=== PATIENT | female | born 1975 | race Two or more races ===

== ENCOUNTER → 2024-10-07 | Outpatient (CLI) | payer MEDICAID, SELFPAY ==
--- NOTE | 2024-10-07 | XR_ITS ---
Examination: Lumbar spine 3 views Technique one AP lateral coned lateral lower lumbar spine 3 views Date and time: October 07, 2024 1337 hours INDICATIONS: Low back pain radiating down the left leg beginning one year ago. FINDINGS: Lumbar dextroscoliosis 10 degrees Minimal anterolisthesis L4 on L5 Advanced degenerative disc disease L5-S1 No lumbar fracture IMPRESSION: Advanced degenerative disc disease L5-S1
== END | disposition home or self-care (01) ==
LOC: CDIM 12:31
PROVIDERS: PCP Physician Assistant; Referring Provider Physician Assistant; Visit Provider Physician Assistant
DX: M51.370 Other intervertebral disc degeneration, lumbosacral region with discogenic back pain only (principal)
CPT/HCPCS: 72100

== ENCOUNTER 2024-10-17 13:49 | Inpatient (IN) | payer MEDICAID, SELFPAY ==
[2024-10-17] VITALS (86 sets, daily range): BP systolic 61–292; BP diastolic 33–275; PULSE 71–105; RESP 4–48; TEMP 36.1–36.6; O2SAT 92–100; BMI 41.1
--- NOTE | 2024-10-17 13:55 | XR_ITS ---
Examination: AP chest single view TECHNIQUE: AP supine portable chest single view Date and time: October 17, 2024 1435 hours Comparison October 17, 2024 1046 hours INDICATIONS: Syncopal episode today. Findings findings Mild prominence left ventricle. Mild vascular congestion. No aspiration pneumonia. Moderate osteopenia IMPRESSION: Mild vascular congestion No aspiration pneumonia
--- NOTE | 2024-10-17 13:55 | EKG_ITS ---
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
--- NOTE | 2024-10-17 14:05 | PD.EDADULT ---
ED General RME/HPI General Chief complaint: Syncope / Near Syncope Stated complaint: NEAR SYNCOPE Time Seen by Provider: 10/17/24 13:55 Arrival date/time: 10/17/24 13:49 CC: CC: Nausea vomiting breathing fast HPI patient presents to the ER via EMS with family members report the patient has been doing the symptoms for the past 24 hours after starting on to tirzepatide 2 days ago. Patient is morbidly obese is on diabetes medication and this was added by PCP to her regular medications. Patient denies chest pain, EMS reports stable vital signs and route other than tachypnea with no tachycardia however patient is ranging in the high 90s for heart rate. Related Data Home Medications ?Medication ?Instructions ?Recorded ?Confirmed atorvastatin 40 mg tablet 40 mg PO QDAY 10/18/24 10/18/24 celecoxib 200 mg capsule 200 mg PO BID 10/18/24 10/18/24 diphenoxylate-atropine 2.5 2 tab PO QID 10/18/24 10/18/24 mg-0.025 mg tablet (Lomotil) empagliflozin 12.5 mg-metformin ER 2 tab PO QDAY 10/18/24 10/18/24 1,000 mg tablet,extended rel 24 hr (Synjardy XR) furosemide 20 mg tablet 20 mg PO BID 10/18/24 10/18/24 lisinopril 10 mg tablet 10 mg PO QDAY 10/18/24 10/18/24 ondansetron 8 mg disintegrating 8 mg PO TID 10/18/24 10/18/24 tablet tramadol 50 mg tablet 50 mg PO BID 10/18/24 10/18/24 Previous Rx's ?Medication ?Instructions ?Recorded codeine 10 mg-guaifenesin 100 mg/5 10 ml PO Q6H PRN cough #118 mL 03/23/18 mL oral liquid Allergies Allergy/AdvReac Type Severity Reaction Status Date / Time No Known Allergies Allergy Verified 03/23/18 21:34 Review of Systems Review of Systems Narrative Review of Systems: GEN: No fever, no chills, no weight loss EYES: No discharge, no visual changes, no pain HEENT: No ear pain, no congestion, no sore throat PULM: No shortness of breath, no cough, no congestion CV: No chest pain, no dyspnea on exertion, no palpitations,+ tachypnea GI: No nausea, no vomiting, no diarrhea, no pain, no constipation : No frequency, no urgency, no dysuria MUSC/SKEL: No joint pain, no back pain SKIN: No rash PSYCH: No hallucinations, no depression HEME/LYMPH: No easy bleeding or bruising tendencies NEURO: No weakness, no headache Past Medical History Past Medical History CARDIAC: Negative Congestive Heart Failure RESPIRATORY: Negative Chronic Obstructive Pulmonary Disease (COPD) GENITOURINARY: Negative Renal Disease ENDOCRINE: Negative Diabetes Mellitus Type 1 or Diabetes Mellitus Type 2 ED Exam Narrative Physical exam: [General: Morbidly obese not in any acute distress Head normocephalic HEENT: Within acceptable limits Neck is supple nontender Chest equal chest rise nontender to palpation Respiratory: Tachypneic, clear to auscultation no wheezes crackles or rubs CV: Rate rhythm is regular no murmurs rubs or clicks Abdomen is grossly distended secondary to body habitus soft nontender no masses positive bowel sounds all 4 quadrants Back: No CVA tenderness no spinous process tenderness from cervical spine thoracic and lumbar spine Skin: Intact no petechiae rash induration ulceration or crepitus Extremities: Moving all extremity against resistance cap refill less than 2 seconds neurosensory intact Neuro: Awake alert oriented x2, person and place, Glascow coma 15 no focal deficits] Course Quality Measures none Orders Category Date Time Status Admit to Inpatient Status Routine Admission 10/17/24 15:41 Active Patient Condition Routine Admission 10/17/24 15:40 Ordered Activity as Tolerated Routine Care 10/17/24 15:42 Ordered Aspiration precautions NOW Care 10/17/24 15:43 Active Continuous Pulse Oximetry NOW Care 10/17/24 15:40 Completed EKG (ED ONLY) *Do not use* NOW Care 10/17/24 13:55 Completed Vásquez [Urinary Catheter] X1 Care 10/17/24 15:14 Completed Glucose [Bedside Blood Glucose] NOW Care 10/17/24 13:59 Active Glucose [Bedside Blood Glucose] Q3HR Care 10/17/24 14:41 Completed Insert IV NOW Care 10/17/24 14:12 Completed Insert NG / OG tube X1 Care 10/17/24 15:17 Active Intubation NOW Care 10/17/24 15:23 Completed NPO NOW Care 10/17/24 15:42 Active Notify provider NEEDED Care 10/17/24 15:40 Active Obtain weight daily Care 10/17/24 15:42 Active Saline [Insert IV] NOW Care 10/17/24 13:56 Active Strict Intake and Output Q1H Care 10/17/24 15:45 Ordered Strict Intake and Output Q1H Care 10/17/24 16:45 Ordered Strict Intake and Output Q1H Care 10/17/24 17:45 Ordered Strict Intake and Output Q1H Care 10/17/24 18:45 Ordered Strict Intake and Output Q1H Care 10/17/24 19:45 Ordered Strict Intake and Output Q1H Care 10/17/24 20:45 Ordered Strict Intake and Output Q1H Care 10/17/24 21:45 Ordered Strict Intake and Output Q1H Care 10/17/24 22:45 Ordered Strict Intake and Output Q1H Care 10/17/24 23:45 Ordered Strict Intake and Output Q1H Care 10/18/24 00:45 Ordered Strict Intake and Output Q1H Care 10/18/24 01:45 Ordered Strict Intake and Output Q1H Care 10/18/24 02:45 Ordered Strict Intake and Output Q1H Care 10/18/24 03:45 Ordered Strict Intake and Output Q1H Care 10/18/24 04:45 Ordered Strict Intake and Output Q1H Care 10/18/24 05:45 Ordered Strict Intake and Output Q1H Care 10/18/24 06:45 Ordered Strict Intake and Output Q1H Care 10/18/24 07:45 Ordered Strict Intake and Output Q1H Care 10/18/24 08:45 Ordered Strict Intake and Output Q1H Care 10/18/24 09:45 Ordered Strict Intake and Output Q1H Care 10/18/24 10:45 Ordered Strict Intake and Output Q1H Care 10/18/24 11:45 Ordered Strict Intake and Output Q1H Care 10/18/24 12:45 Ordered Strict Intake and Output Q1H Care 10/18/24 13:45 Ordered Strict Intake and Output Q1H Care 10/18/24 14:45 Ordered Diet NPO (NOW) Diet 10/17/24 15:42 Active EKG (ED Only) Stat Exams 10/17/24 13:55 Draft XR chest 1V Stat Exams 10/17/24 13:55 Completed XR chest 1V post procedure Stat Exams 10/17/24 15:17 Completed ABG [Arterial Blood Gas] Stat Lab 10/17/24 14:15 Completed ABG [Arterial Blood Gas] Stat Lab 10/17/24 15:25 Completed B-Type Natriuretic Peptide Stat Lab 10/17/24 14:05 Completed Beta Hydroxybutyrate Stat Lab 10/17/24 14:05 Completed Blood Culture (Lab) Stat Lab 10/17/24 15:05 Received CBC Stat Lab 10/17/24 14:05 Completed Comprehensive Metabolic Panel Stat Lab 10/17/24 14:05 Completed Drug Screen,Urine Stat Lab 10/17/24 14:51 Completed LDH (Lactate Dehydrogenase) Stat Lab 10/17/24 14:05 Completed Lactic Acid [Lactate (Lactic Acid)] Stat Lab 10/17/24 14:05 Completed Lipase Stat Lab 10/17/24 14:05 Completed Magnesium Stat Lab 10/17/24 14:05 Completed Partial Thromboplastin Time Stat Lab 10/17/24 14:05 Completed Procalcitonin Stat Lab 10/17/24 14:05 Completed Prothrombin Time with INR Stat Lab 10/17/24 14:05 Completed Troponin I Stat Lab 10/17/24 14:05 Completed Urinalysis Stat Lab 10/17/24 14:51 Completed ALBUTEROL RT 0.5ml [Proventil Rt 0.5ml] Med 10/17/24 14:49 Discontinued 10 mg INH X1 ONE ALBUTEROL RT 0.5ml [Proventil Rt 0.5ml] Med 10/17/24 14:41 Discontinued 2.5 mg INH X1 ONE Calcium Gluconate 10% Inj Med 10/17/24 14:41 Discontinued 1 gm IV X1 ONE Dextrose 50% Syr [D50w Syringe Abboject] Med 10/17/24 14:41 Discontinued 50 ml IV X1 ONE Etomidate Inj [Amidate Inj] Med 10/17/24 15:17 Discontinued 20 mg IVP X1 ONE Famotidine Inj [Pepcid Inj] Med 10/17/24 15:45 Discontinued 20 mg IVP QDAY Insulin Regular Med 10/17/24 14:41 Discontinued 5 unit IV X1 ONE Midazolam/Ns 100 mg Ivpb [Versed Pf Inj in Ns Premix] Med 10/17/24 15:17 Discontinued 100 mg in 100 ml IV 1 mg/hr Ondansetron Inj [Zofran Inj] Med 10/17/24 14:05 Discontinued 4 mg IVP X1 ONE Ringers Lactated 1000 ml [Lactated Ringers] 1,000 ml Med 10/17/24 15:21 Discontinued IV 250 mls/hr Ringers Lactated 1000 ml [Lactated Ringers] 1,000 ml Med 10/17/24 13:56 Discontinued IV 999 mls/hr Ringers Lactated 1000 ml [Lactated Ringers] 1,000 ml Med 10/17/24 13:56 Discontinued IV 999 mls/hr Ringers Lactated 1000 ml [Lactated Ringers] 1,000 ml Med 10/17/24 14:33 Discontinued IV 999 mls/hr Ringers Lactated 1000 ml [Lactated Ringers] 1,000 ml Med 10/17/24 15:17 Discontinued IV 999 mls/hr Ringers Lactated 1000 ml [Lactated Ringers] 1,000 ml Med 10/17/24 15:30 Discontinued IV 999 mls/hr Rocuronium Inj [Zemuron Inj] Med 10/17/24 15:17 Discontinued 10 mg IVP X1 ONE Rocuronium Inj [Zemuron Inj] Med 10/17/24 15:33 Discontinued 100 mg IV X1 ONE Sodium Bicarb 8.4% 50ml Vial* Med 10/17/24 14:48 Discontinued 50 meq IV X1 ONE Sodium Bicarb 8.4% 50ml Vial* Med 10/17/24 14:48 Discontinued 50 meq IV X1 ONE Sodium Chloride Rt Gogo 0.9% [NS Rt Gogo 0.9%] Med 10/17/24 14:41 Active 3 ml INH PRN PRN fentaNYL 2,500 MCG/250 ML BAG [Sublimaze Inj 2,500 MCG/ Med 10/17/24 15:19 Active 250 ML BAG] 2,500 mcg in 250 ml IV 25 mcg/hr Code Status Routine Oth 10/17/24 15:40 Ordered Vital Signs Vital signs: Vital Signs Temperature 97.8 F 10/17/24 14:22 Pulse Rate 97 10/17/24 14:22 Respiratory Rate 30 H 10/17/24 14:22 Blood Pressure 103/51 L 10/17/24 14:22 Pulse Oximetry (%) 96 10/17/24 14:22 Oxygen Delivery Method Room Air 10/17/24 14:22 Procedures -ED Procedure Comment Intubation.: RT at bedside patient on 8 L SVN for hyperkalemia switched over to bag valve ventilation. Dr. stein at bedside patient in full supine position. IV RSI medications administered. Patient was bagged for approximately 45 seconds, initial intubation attempt unsuccessful, repositioning short interim bag mouth ventilation, with a second attempt with new stylette patient was intubated with the vocal cords present, 24 at the lip with good color change on capnography ET tube was secured NG tube was placed. Both confirmed by chest x-ray. Ventilation parameters at rate of 24 tidal volume of 400 PEEP of 5 FiO2 of 100%. Vásquez catheter placed. Third IV peripheral line established. Postintubation blood pressures were with a MAP of 60 however were soft Levophed drip started sedation was initiated both fentanyl and Versed. Critical Care Time Critical Care Time Critical Care Time: Yes Total Critical Care Time (min.): 42 Attestation: Consultation and analysis without procedures considered. Discharge Plan Plan Patient Disposition: Admit Acute Care w/in Hospital Discharge Disposition comment: Critical Problem List Clinical Impression: DKA (diabetic ketoacidosis), Acidosis, Tachypnea, Acute hyperkalemia, Acute renal failure PA/MEDICAL CODING INSTRUCTOR Supervising Physician PA/MEDICAL CODING INSTRUCTOR Supervising Physician: Hao Hamlin ENP [facility] Clinical Information Provided by patient and EMS Medical Records Reviewed [facility] No prior visits to the emergency room Meds/Rx Considered, not Ordered None Labs/Rad/Tests considered, not Ordered None Chronic Illness/Social Conditions Add or document further as needed: Obesity diabetes patient started on tirzepatide approximately 2 days ago and is determined the patient continue to take her diabetes medicine which included metformin simultaneously. EKG EKG Interpretation narrative: EKG performed at 1418 shows a ventricular rate of 97 MS interval 184 QRS 117 QTc 412 sinus rhythm baseline waveform nonspecific ST segment changes no old EKG for comparison. Lab Interpretation Labs: interpreted by me Imaging Imaging interpretation: interpreted by [place] Provider imaging interpretation(s): CBC shows no leukocytosis anemia or thrombocytopenia Coags show a PTT of 37.2 otherwise within acceptable limits ABG shows a pH of 6.86 pCO2 23 pO2 of 96 bicarb of 4 base excess of 29 on 8 L nasal cannula CMP shows a sodium 133 potassium of 7.4 chloride of 82 CO2 of less than 10 gap of 41 BUN of 96 creatinine of 19.5 glucose of 77 Lactic of 17.0. Magnesium of 3.2 mild transaminitis no T. bili elevation LDH at 257 Troponin at 0.049 BNP at 503 Lipase at 58 Beta hydroxybutyrate of 5.3 Pro-Sunny at 0.99 Urine is turbid 3+ protein 1+ glucose 1+ blood 20 RBCs 7 squamous epithelial no bacteria. UDS is negative Magnesium at 3.2 Radiology reports / interpretation(s): After observing the patient with 3 L of normal saline, repeat ABG showed a pH is remained unchanged at 6.85 at this time the patient was elected to be intubated, see intubation note. Dr. Reeves, terminal makeup operator contacted, who agrees the patient needs ICU, will need a dialysis catheter as well. Patient was made understand before sedation and intubation what was happening and she nodded in agreement. Family member, her son, was advised of her condition, and what we would need to do. Medication Administration(s) Medication Administration History Dextrose (Dextrose 50%-Water Inj 50 Ml Syringe) 25 ml IV Q15MIN PRN PRN Reason: BG 50-70 responsive npo pt Stop: 11/16/24 18:36 Dextrose (Dextrose 50%-Water Inj 50 Ml Syringe) 50 ml IV Q15MIN PRN PRN Reason: BG <50 OR BG <70 & pt unresponsive Stop: 11/16/24 18:36 Glucagon (Glucagon Inj 1 Mg Vial) 1 mg IM Q15MIN PRN PRN Reason: BG <70, and no IV access Heparin Sodium (Porcine) (Heparin Sod Inj 5000 Unit/Ml Vial) 5,000 unit SC Q8HR [facility] Stop: 10/31/24 21:59 Last Admin: 10/18/24 05:53 Dose: 5,000 unit Documented By: BELEN Co-signed By: PINEDA Admin: 10/17/24 22:28 Dose: 5,000 unit Documented By: BELEN Co-signed By: DOROTHY Heparin Sodium (Porcine) (Heparin Sod Inj 1000 Unit/Ml Vial 10 Ml) 200 unit INDWELLCAT Q1H PRN PRN Reason: DIALYSIS Stop: 11/01/24 09:44 Last Admin: 10/18/24 12:00 Dose: 200 unit Documented By: HARRY Co-signed By: DI Admin: 10/18/24 11:00 Dose: 200 unit Documented By: HARRY Co-signed By: DI Admin: 10/18/24 10:00 Dose: 200 unit Documented By: HARRY Co-signed By: faustino Hydrocortisone Sodium Succinate (Hydrocortisone Sod Succ Inj 100 Mg Vial) 50 mg IV Q6HR [facility] Stop: 11/17/24 01:59 Last Admin: 05/26/25 05:54 Dose: 50 mg Documented By: Admin: 10/18/24 02:09 Dose: 50 mg Documented By: CMN Fentanyl Citrate (Sublimaze Inj 2,500 Mcg/250 Ml Bag) 2,500 mcg in 250 mls @ 2.5 mls/hr IV .Q24H PRN; Protocol PRN Reason: PER PROTOCOL Stop: 10/22/24 15:18 Last Titration: 10/18/24 12:00 Dose: 225 mcg/hr, 22.5 mls/hr Documented By: Titration: 10/18/24 11:30 Dose: 225 mcg/hr, 22.5 mls/hr Documented By: Titration: 10/18/24 11:00 Dose: 275 mcg/hr, 27.5 mls/hr Documented By: Admin: 10/18/24 10:28 Dose: 275 mcg/hr, 27.5 mls/hr Documented By: HARRY Co-signed By: DI Titration: 10/18/24 10:28 Dose: Infused Documented By: HARRY Co-signed By: KR Titration: 10/18/24 10:00 Dose: 275 mcg/hr, 27.5 mls/hr Documented By: Titration: 10/18/24 09:00 Dose: 275 mcg/hr, 27.5 mls/hr Documented By: Titration: 10/18/24 08:15 Dose: 275 mcg/hr, 27.5 mls/hr Documented By: Titration: 10/18/24 08:00 Dose: 225 mcg/hr, 22.5 mls/hr Documented By: Titration: 10/18/24 07:00 Dose: 225 mcg/hr, 22.5 mls/hr Documented By: Titration: 10/18/24 06:00 Dose: 225 mcg/hr, 22.5 mls/hr Documented By: Titration: 10/18/24 05:00 Dose: 175 mcg/hr, 17.5 mls/hr Documented By: Titration: 10/18/24 04:30 Dose: 175 mcg/hr, 17.5 mls/hr Documented By: Titration: 10/18/24 04:00 Dose: 175 mcg/hr, 17.5 mls/hr Documented By: Titration: 10/18/24 03:00 Dose: 175 mcg/hr, 17.5 mls/hr Documented By: Titration: 10/18/24 02:00 Dose: 125 mcg/hr, 12.5 mls/hr Documented By: Titration: 10/18/24 01:00 Dose: 125 mcg/hr, 12.5 mls/hr Documented By: Titration: 10/18/24 00:00 Dose: 125 mcg/hr, 12.5 mls/hr Documented By: Titration: 10/17/24 23:45 Dose: 125 mcg/hr, 12.5 mls/hr Documented By: Titration: 10/17/24 23:00 Dose: 75 mcg/hr, 7.5 mls/hr Documented By: Titration: 10/17/24 22:21 Dose: 75 mcg/hr, 7.5 mls/hr Documented By: Titration: 10/17/24 22:00 Dose: 25 mcg/hr, 2.5 mls/hr Documented By: Titration: 10/17/24 21:00 Dose: 25 mcg/hr, 2.5 mls/hr Documented By: Titration: 10/17/24 20:00 Dose: 25 mcg/hr, 2.5 mls/hr Documented By: Titration: 10/17/24 19:00 Dose: 25 mcg/hr, 2.5 mls/hr Documented By: Titration: 10/17/24 18:00 Dose: 25 mcg/hr, 2.5 mls/hr Documented By: Titration: 10/17/24 17:00 Dose: 25 mcg/hr, 2.5 mls/hr Documented By: Admin: 10/17/24 15:45 Dose: 25 mcg/hr, 2.5 mls/hr Documented By: DB Co-signed By: VRS Norepinephrine/Dextrose (Levophed In D5w 8mg/250ml) 8 mg in 250 mls @ 10.206 mls/hr IV .Q24H PRN; Protocol PRN Reason: PER PROTOCOL Stop: 11/16/24 15:49 Last Titration: 10/18/24 12:00 Dose: 0.07 mcg/kg/min, 14.288 mls/hr Documented By: Titration: 10/18/24 11:55 Dose: 0.07 mcg/kg/min, 14.288 mls/hr Documented By: Titration: 10/18/24 11:47 Dose: 0.09 mcg/kg/min, 18.37 mls/hr Documented By: Titration: 10/18/24 11:00 Dose: 0.11 mcg/kg/min, 22.453 mls/hr Documented By: Admin: 10/18/24 10:55 Dose: 0.11 mcg/kg/min, 22.453 mls/hr Documented By: Titration: 10/18/24 10:40 Dose: Infused Documented By: Titration: 10/18/24 10:00 Dose: 0.13 mcg/kg/min, 26.535 mls/hr Documented By: Titration: 10/18/24 09:00 Dose: 0.13 mcg/kg/min, 26.535 mls/hr Documented By: Titration: 10/18/24 08:00 Dose: 0.13 mcg/kg/min, 26.535 mls/hr Documented By: Titration: 10/18/24 07:00 Dose: 0.13 mcg/kg/min, 26.535 mls/hr Documented By: Titration: 10/18/24 06:17 Dose: 0.13 mcg/kg/min, 26.535 mls/hr Documented By: Titration: 10/18/24 06:00 Dose: 0.15 mcg/kg/min, 30.617 mls/hr Documented By: Titration: 10/18/24 05:45 Dose: 0.15 mcg/kg/min, 30.617 mls/hr Documented By: Titration: 10/18/24 05:30 Dose: 0.17 mcg/kg/min, 34.7 mls/hr Documented By: Titration: 10/18/24 05:15 Dose: 0.19 mcg/kg/min, 38.782 mls/hr Documented By: Titration: 10/18/24 05:00 Dose: 0.21 mcg/kg/min, 42.864 mls/hr Documented By: Titration: 10/18/24 04:30 Dose: 0.23 mcg/kg/min, 46.947 mls/hr Documented By: Titration: 10/18/24 04:00 Dose: 0.25 mcg/kg/min, 51.029 mls/hr Documented By: Titration: 10/18/24 03:30 Dose: 0.27 mcg/kg/min, 55.111 mls/hr Documented By: Admin: 10/18/24 03:18 Dose: 0.29 mcg/kg/min, 59.194 mls/hr Documented By: Titration: 10/18/24 03:18 Dose: Infused Documented By: Titration: 10/18/24 03:00 Dose: 0.29 mcg/kg/min, 59.194 mls/hr Documented By: Titration: 10/18/24 02:45 Dose: 0.29 mcg/kg/min, 59.194 mls/hr Documented By: Titration: 10/18/24 02:00 Dose: 0.31 mcg/kg/min, 63.276 mls/hr Documented By: Titration: 10/18/24 01:45 Dose: 0.31 mcg/kg/min, 63.276 mls/hr Documented By: Titration: 10/18/24 01:30 Dose: 0.33 mcg/kg/min, 67.358 mls/hr Documented By: Titration: 10/18/24 01:00 Dose: 0.35 mcg/kg/min, 71.441 mls/hr Documented By: Titration: 10/18/24 00:15 Dose: 0.37 mcg/kg/min, 75.523 mls/hr Documented By: Titration: 10/18/24 00:00 Dose: 0.39 mcg/kg/min, 79.605 mls/hr Documented By: Admin: 10/17/24 23:45 Dose: 0.41 mcg/kg/min, 83.688 mls/hr Documented By: Titration: 10/17/24 23:45 Dose: Infused Documented By: Titration: 10/17/24 23:00 Dose: 0.41 mcg/kg/min, 83.688 mls/hr Documented By: Titration: 10/17/24 22:30 Dose: 0.41 mcg/kg/min, 83.688 mls/hr Documented By: Titration: 10/17/24 22:00 Dose: 0.43 mcg/kg/min, 87.77 mls/hr Documented By: Titration: 10/17/24 21:00 Dose: 0.43 mcg/kg/min, 87.77 mls/hr Documented By: Admin: 10/17/24 20:38 Dose: 0.43 mcg/kg/min, 87.77 mls/hr Documented By: Titration: 10/17/24 20:38 Dose: Infused Documented By: Titration: 10/17/24 20:00 Dose: 0.43 mcg/kg/min, 87.77 mls/hr Documented By: Titration: 10/17/24 19:45 Dose: 0.43 mcg/kg/min, 87.77 mls/hr Documented By: Titration: 10/17/24 19:40 Dose: 0.41 mcg/kg/min, 83.688 mls/hr Documented By: Titration: 10/17/24 19:35 Dose: 0.39 mcg/kg/min, 79.605 mls/hr Documented By: Titration: 10/17/24 19:31 Dose: 0.37 mcg/kg/min, 75.523 mls/hr Documented By: Titration: 10/17/24 19:26 Dose: 0.35 mcg/kg/min, 71.441 mls/hr Documented By: Titration: 10/17/24 19:21 Dose: 0.33 mcg/kg/min, 67.358 mls/hr Documented By: Titration: 10/17/24 19:16 Dose: 0.31 mcg/kg/min, 63.276 mls/hr Documented By: Titration: 10/17/24 19:11 Dose: 0.29 mcg/kg/min, 59.194 mls/hr Documented By: Titration: 10/17/24 19:06 Dose: 0.27 mcg/kg/min, 55.111 mls/hr Documented By: Titration: 10/17/24 19:01 Dose: 0.25 mcg/kg/min, 51.029 mls/hr Documented By: Titration: 10/17/24 19:00 Dose: 0.23 mcg/kg/min, 46.947 mls/hr Documented By: Titration: 10/17/24 18:56 Dose: 0.23 mcg/kg/min, 46.947 mls/hr Documented By: Titration: 10/17/24 18:00 Dose: 0.21 mcg/kg/min, 42.864 mls/hr Documented By: Titration: 10/17/24 17:49 Dose: 0.21 mcg/kg/min, 42.864 mls/hr Documented By: Titration: 10/17/24 17:44 Dose: 0.19 mcg/kg/min, 38.782 mls/hr Documented By: Titration: 10/17/24 16:50 Dose: 0.17 mcg/kg/min, 34.7 mls/hr Documented By: Titration: 10/17/24 16:45 Dose: 0.17 mcg/kg/min, 34.7 mls/hr Documented By: Titration: 10/17/24 16:40 Dose: 0.15 mcg/kg/min, 30.617 mls/hr Documented By: Titration: 10/17/24 16:35 Dose: 0.15 mcg/kg/min, 30.617 mls/hr Documented By: Titration: 10/17/24 16:30 Dose: 0.15 mcg/kg/min, 30.617 mls/hr Documented By: Titration: 10/17/24 16:20 Dose: 0.13 mcg/kg/min, 26.535 mls/hr Documented By: Titration: 10/17/24 16:15 Dose: 0.11 mcg/kg/min, 22.453 mls/hr Documented By: Titration: 10/17/24 16:10 Dose: 0.09 mcg/kg/min, 18.37 mls/hr Documented By: Titration: 10/17/24 16:05 Dose: 0.07 mcg/kg/min, 14.288 mls/hr Documented By: Admin: 10/17/24 16:00 Dose: 0.05 mcg/kg/min, 10.206 mls/hr Documented By: DB Comments: PER DR. RILEY START NOW THIS MED Piperacillin/Tazobactam/Dextrose (Zosyn) 3.375 gm in 50 mls @ 12.5 mls/hr IV Q12HR [facility]; Protocol Stop: 10/25/24 08:59 Last Admin: 10/18/24 09:32 Dose: 12.5 mls/hr Documented By: HARRY Dextrose (D10w 1000 Ml) 1,000 mls @ 50 mls/hr IV .Q20H [facility] Stop: 11/16/24 18:35 Last Infusion: 10/18/24 01:26 Dose: 0 mls/hr Documented By: Admin: 10/17/24 18:50 Dose: 50 mls/hr Documented By: BILL Dexmedetomidine/Sodium Chloride (Precedex Ivpb) 400 mcg in 100 mls @ 5.443 mls/hr IV .[id number] PRN; Protocol PRN Reason: Per PROTOCOL Stop: 11/16/24 19:59 Last Titration: 10/18/24 12:00 Dose: 0.8 mcg/kg/hr, 21.772 mls/hr Documented By: Titration: 10/18/24 11:45 Dose: 0.8 mcg/kg/hr, 21.772 mls/hr Documented By: Titration: 10/18/24 11:00 Dose: 0.6 mcg/kg/hr, 16.329 mls/hr Documented By: Titration: 10/18/24 10:00 Dose: 0.6 mcg/kg/hr, 16.329 mls/hr Documented By: Titration: 10/18/24 09:30 Dose: 0.6 mcg/kg/hr, 16.329 mls/hr Documented By: Titration: 10/18/24 09:00 Dose: 0.4 mcg/kg/hr, 10.886 mls/hr Documented By: Titration: 10/18/24 08:15 Dose: 0.4 mcg/kg/hr, 10.886 mls/hr Documented By: Titration: 10/18/24 08:00 Dose: 0.2 mcg/kg/hr, 5.443 mls/hr Documented By: Titration: 10/18/24 07:00 Dose: 0.2 mcg/kg/hr, 5.443 mls/hr Documented By: Admin: 10/18/24 06:17 Dose: 0.2 mcg/kg/hr, 5.443 mls/hr Documented By: BELEN Co-signed By: DOROTHY Vasopressin/Sodium Chloride (Vasostrict/Ns Ivpb) 20 unit in 100 mls @ 9 mls/hr IV .Q11H7M PRN; Protocol PRN Reason: PER PROTOCOL Stop: 11/16/24 20:39 Last Admin: 10/18/24 06:00 Dose: 0.03 unit/min, 9 mls/hr Documented By: Titration: 10/18/24 06:00 Dose: Infused Documented By: Admin: 10/17/24 20:36 Dose: 0.03 unit/min, 9 mls/hr Documented By: BELEN Potassium Chloride (Kcl Ivpb) 10 meq in 100 mls @ 100 mls/hr IV .Q1H PRN PRN Reason: IF POTASSIUM LESS THAN 3.3 Stop: 11/17/24 06:45 Magnesium Sulfate (Magnesium Sulfate Ivpb) 2 gm in 50 mls @ 25 mls/hr IV .Q2H PRN PRN Reason: PER DKA PROTOCOL Stop: 11/17/24 06:45 Insulin Human Regular 100 unit (/ IV Miscellaneous Supplies) 100 mls @ 10.886 mls/hr IV .Q9H12M PRN; Protocol PRN Reason: PER PROTOCOL Stop: 11/17/24 06:45 Last Titration: 10/18/24 12:00 Dose: 0.025 unit/kg/hr, 2.722 mls/hr Documented By: HARRY Co-signed By: DI Titration: 10/18/24 11:00 Dose: 0.025 unit/kg/hr, 2.722 mls/hr Documented By: HARRY Co-signed By: DI Titration: 10/18/24 10:00 Dose: 0.025 unit/kg/hr, 2.722 mls/hr Documented By: HARRY Co-signed By: [email or web address] Titration: 10/18/24 09:00 Dose: 0.025 unit/kg/hr, 2.722 mls/hr Documented By: HARRY Co-signed By: DI Titration: 10/18/24 08:00 Dose: 0.1 unit/kg/hr, 10.886 mls/hr Documented By: HARRY Co-signed By: DI Admin: 10/18/24 07:52 Dose: 0.1 unit/kg/hr, 10.886 mls/hr Documented By: HARRY Co-signed By: DI Dextrose/Lactated Ringer's (D5-Lr) 1,000 mls @ 250 mls/hr IV .Q4H PRN PRN Reason: PER PROTOCOL Stop: 11/17/24 06:45 Last Infusion: 10/18/24 10:47 Dose: 0 mls/hr Documented By: Admin: 10/18/24 10:25 Dose: 250 mls/hr Documented By: HARRY Lactated Ringer's (Lactated Ringers) 1,000 mls @ 250 mls/hr IV .Q4H PRN PRN Reason: PER PROTOCOL Stop: 10/19/24 06:45 Potassium Chloride 20 meq/ (Lactated Ringer's) 1,010 mls @ 250 mls/hr IV .Q4H3M PRN PRN Reason: K LEVEL 3.3 TO 5.3mM/L Stop: 11/17/24 06:45 Potassium Chloride 40 meq/ (Lactated Ringer's) 1,020 mls @ 250 mls/hr IV .Q4H5M PRN PRN Reason: K LEVEL < 3.3 mM/L Stop: 11/17/24 06:45 Potassium Chloride 40 meq/ (Dextrose/Lactated Ringer's) 1,020 mls @ 250 mls/hr IV .Q4H5M PRN PRN Reason: K LEVEL < 3.3mM/L Stop: 11/17/24 06:45 Potassium Chloride (Kcl Ivpb) 10 meq in 100 mls @ 50 mls/hr IV PRN PRN PRN Reason: K LEVEL 3.3 to 5.3 & BG > 200 Stop: 11/17/24 06:45 Potassium Phosphate (Pot Phos 15 Mmol In Ns 250 Ml) 15 mmol in 250 mls @ 62.5 mls/hr IV PRN PRN PRN Reason: Phosphate <= 1mg/dL Stop: 11/17/24 06:45 Sodium Phosphate 15 mmol/ (Sodium Chloride) 255 mls @ 62.5 mls/hr IV .Q4H5M PRN PRN Reason: Phosphate <= 1mg/dL and K> than 5.3 Stop: 11/17/24 06:45 Potassium Chloride 20 meq/ (Dextrose/Lactated Ringer's) 1,010 mls @ 250 mls/hr IV .Q4H3M PRN PRN Reason: K LEVEL 3.3 TO 5.3 mM/L Stop: 11/17/24 10:17 Last Admin: 10/18/24 10:47 Dose: 250 mls/hr Documented By: HARRY Pantoprazole Sodium (Pantoprazole Inj 40 Mg Vial) 40 mg IVP BID SOHA Stop: 11/16/24 19:59 Last Admin: 10/18/24 09:32 Dose: 40 mg Documented By: Admin: 10/17/24 20:41 Dose: 40 mg Documented By: RH Sodium Bicarbonate (Sodium Bicarb Inj 8.4% Syr 50 Ml Syringe) 50 ml IV PRN PRN PRN Reason: For ph <= to 7.0 Stop: 11/17/24 06:45 Sodium Chloride (Sodium Chloride Rt Gogo 0.9% 3 Ml Nebu) 3 ml INH PRN PRN PRN Reason: SOLN Stop: 11/16/24 14:40 Last Admin: 10/17/24 15:05 Dose: 3 ml Documented By: CS Discontinued Medications Albuterol (Albuterol Rt 2.5 Mg/0.5 Ml Nebu) 2.5 mg INH X1 ONE Stop: 10/17/24 14:42 Last Admin: 10/17/24 15:03 Dose: Not Given Documented By: DB Non-Admin Reason: Cancelled by Provider Albuterol (Albuterol Rt 2.5 Mg/0.5 Ml Nebu) 10 mg INH X1 ONE Stop: 10/17/24 14:50 Last Admin: 10/17/24 15:00 Dose: 10 mg Documented By: ALBA Calcium Gluconate (Calcium Gluconate 10% Inj 1 Gm/10 Ml Vial) 1 gm IV X1 ONE Stop: 10/17/24 14:42 Last Admin: 10/17/24 15:05 Dose: 1 gm Documented By: TYLER Dextrose (Dextrose 50%-Water Inj 50 Ml Syringe) 50 ml IV X1 ONE Stop: 10/17/24 14:42 Last Admin: 10/17/24 15:05 Dose: 50 ml Documented By: TYLER Enoxaparin Sodium (Enoxaparin Sod Inj 40 Mg/0.4 Ml Syringe) 40 mg SC QDAY SOHA Stop: 10/31/24 15:44 Last Admin: 10/17/24 20:09 Dose: Not Given Documented By: RH Non-Admin Reason: Discontinued Etomidate (Etomidate Inj 2 Mg/Ml Vial 10 Ml) 20 mg IVP X1 ONE Stop: 10/17/24 15:18 Last Admin: 10/17/24 15:37 Dose: 20 mg Documented By: TYLER Famotidine (Famotidine Inj 10 Mg/Ml Vial 2 Ml) 20 mg IVP QDAY SOHA Stop: 11/16/24 15:44 Last Admin: 10/17/24 20:11 Dose: Not Given Documented By: BELEN Non-Admin Reason: Discontinued Heparin Sodium (Porcine) (Heparin Sod Inj 1000 Unit/Ml Vial 10 Ml) 1,000 unit INDWELLCAT X1 ONE Stop: 10/18/24 09:35 Last Admin: 10/18/24 09:41 Dose: 1,000 unit Documented By: HARRY Co-signed By: DI Hydrocortisone Sodium Succinate (Hydrocortisone Sod Succ Inj 100 Mg Vial) 100 mg IV X1 ONE Stop: 10/17/24 20:29 Last Admin: 10/17/24 20:41 Dose: 100 mg Documented By: BELEN Lactated Ringer's (Lactated Ringers) 1,000 mls @ 999 mls/hr IV .Q1H1M ONE Stop: 10/17/24 14:56 Last Infusion: 10/17/24 15:31 Dose: Infused Documented By: Admin: 10/17/24 14:16 Dose: 999 mls/hr Documented By: TYLER Lactated Ringer's (Lactated Ringers) 1,000 mls @ 999 mls/hr IV .Q1H1M ONE Stop: 10/17/24 14:56 Last Infusion: 10/17/24 15:31 Dose: Infused Documented By: Admin: 10/17/24 14:16 Dose: 999 mls/hr Documented By: TYLER Lactated Ringer's (Lactated Ringers) 1,000 mls @ 999 mls/hr IV .Q1H1M ONE Stop: 10/17/24 15:33 Last Infusion: 10/17/24 16:18 Dose: Infused Documented By: Admin: 10/17/24 14:39 Dose: 999 mls/hr Documented By: TYLER Lactated Ringer's (Lactated Ringers) 1,000 mls @ 999 mls/hr IV .Q1H1M ONE Stop: 10/17/24 16:17 Last Infusion: 10/17/24 16:58 Dose: Infused Documented By: Admin: 10/17/24 15:32 Dose: 999 mls/hr Documented By: TYLER Midazolam HCl (Versed Pf Inj In Ns Premix) 100 mg in 100 mls @ 1 mls/hr IV .Q24H PRN; Protocol PRN Reason: PER PROTOCOL Stop: 10/22/24 15:16 Last Titration: 10/17/24 22:00 Dose: 0 mg/hr, 0 mls/hr Documented By: Titration: 10/17/24 21:00 Dose: 1 mg/hr, 1 mls/hr Documented By: Titration: 10/17/24 20:00 Dose: 1 mg/hr, 1 mls/hr Documented By: Titration: 10/17/24 19:00 Dose: 1 mg/hr, 1 mls/hr Documented By: Titration: 10/17/24 18:00 Dose: 1 mg/hr, 1 mls/hr Documented By: Titration: 10/17/24 17:25 Dose: 1 mg/hr, 1 mls/hr Documented By: Admin: 10/17/24 16:10 Dose: 1 mg/hr, 1 mls/hr Documented By: TYLER Co-signed By: MELECIO Lactated Ringer's (Lactated Ringers) 1,000 mls @ 250 mls/hr IV .Q4H ONE Stop: 10/17/24 19:20 Last Admin: 10/17/24 20:07 Dose: Not Given Documented By: RH Non-Admin Reason: Discontinued Lactated Ringer's (Lactated Ringers) 1,000 mls @ 999 mls/hr IV .Q1H1M ONE Stop: 10/17/24 16:30 Last Admin: 10/17/24 15:36 Dose: Not Given Documented By: TYLER Non-Admin Reason: Duplicate Medication on eMAR Sodium Bicarbonate 88.23 meq/ (Dextrose) 588.23 mls @ 100 mls/hr IV .Q5H53M [facility] Stop: 11/16/24 15:44 Last Admin: 10/18/24 05:13 Dose: 100 mls/hr Documented By: Infusion: 10/18/24 05:13 Dose: Infused Documented By: Admin: 10/17/24 22:21 Dose: 100 mls/hr Documented By: Infusion: 10/17/24 22:21 Dose: Infused Documented By: Admin: 10/17/24 16:08 Dose: 100 mls/hr Documented By: TYLER Norepinephrine Bitartrate (Levophed In Ns 16mg/250ml) 16 mg in 250 mls @ 5.103 mls/hr IV .Q24H PRN; Protocol PRN Reason: PER PROTOCOL Stop: 11/16/24 15:48 Piperacillin/Tazobactam/Dextrose (Zosyn) 3.375 gm in 50 mls @ 100 mls/hr IV X1 ONE Stop: 10/17/24 18:44 Last Infusion: 10/17/24 20:00 Dose: Infused Documented By: Admin: 10/17/24 19:23 Dose: 100 mls/hr Documented By: Vasopressin/Sodium Chloride (Vasostrict/Ns Ivpb) 20 unit in 100 mls @ 9 mls/hr IV .Q11H7M PRN; Protocol PRN Reason: PER PROTOCOL Stop: 11/16/24 20:27 Vasopressin/Sodium Chloride (Vasostrict/Ns Ivpb) 20 unit in 100 mls @ 9 mls/hr IV .Q11H7M PRN; Protocol PRN Reason: PER PROTOCOL Stop: 11/16/24 20:30 Dextrose/Sodium Chloride (D5-1/2ns) 1,000 mls @ 200 mls/hr IV .Q5H SOHA Stop: 11/17/24 01:06 Dextrose/Lactated Ringer's (D5-Lr) 1,000 mls @ 200 mls/hr IV .Q5H SOHA Stop: 11/17/24 01:14 Last Infusion: 10/18/24 05:12 Dose: 0 mls/hr Documented By: Admin: 10/18/24 01:26 Dose: 200 mls/hr Documented By: Lactated Ringer's (Lactated Ringers) 1,000 mls @ 999 mls/hr IV .Q1H1M ONE Stop: 10/18/24 04:24 Last Infusion: 10/18/24 04:30 Dose: Infused Documented By: Admin: 10/18/24 03:25 Dose: 999 mls/hr Documented By: Lactated Ringer's (Lactated Ringers) 1,000 mls @ 999 mls/hr IV .Q1H1M ONE Stop: 10/18/24 02:30 Last Infusion: 10/18/24 02:40 Dose: Infused Documented By: Admin: 10/18/24 01:30 Dose: 999 mls/hr Documented By: BELEN Sodium Chloride (Ns) 1,000 mls @ 999 mls/hr IV .Q1H1M ONE Stop: 10/18/24 06:12 Last Admin: 10/18/24 05:12 Dose: 999 mls/hr Documented By: BELEN Potassium Cl/Dextrose/Lact Ringer's (Kcl 20 Meq/L In D5-Lr) 20 meq in 1,000 mls @ 250 mls/hr IV .Q4H PRN PRN Reason: K LEVEL 3.3 TO 5.3 mM/L Stop: 11/17/24 06:45 Lactated Ringer's (Lactated Ringers) 500 mls @ 999 mls/hr IV .Q31M ONE Stop: 10/18/24 11:06 Last Admin: 10/18/24 11:19 Dose: Not Given Documented By: HARRY Non-Admin Reason: not available Lactated Ringer's (Lactated Ringers) 500 mls @ 999 mls/hr IV .Q31M ONE Stop: 10/18/24 11:45 Last Admin: 10/18/24 11:19 Dose: 999 mls/hr Documented By: HARRY Insulin Human Lispro (Insulin Lispro (Admelog) 1 Unit/0.01 Ml Unit) 0 unit SC Q6HR SOHA; Protocol Stop: 11/17/24 00:00 Insulin Human Lispro (Insulin Lispro (Admelog) 1 Unit/0.01 Ml Unit) 0 unit SC Q3HR SOHA; Protocol Stop: 11/16/24 20:59 Last Admin: 10/18/24 06:00 Dose: 6 unit Documented By: BELEN Co-signed By: PINEDA Admin: 10/18/24 04:02 Dose: 6 unit Documented By: PINEDA Co-signed By: DOROTHY Admin: 10/18/24 00:20 Dose: 6 unit Documented By: BELEN Co-signed By: DOROTHY Admin: 10/17/24 21:39 Dose: 6 unit Documented By: BELEN Co-signed By: DOROTHY Insulin Human Regular (Insulin Hum Regular 1 Unit/0.01 Ml (Per Unit)) 5 unit IV X1 ONE Stop: 10/17/24 14:42 Last Admin: 10/17/24 15:04 Dose: 5 unit Documented By: TYLER Co-signed By: DO Lorazepam (Lorazepam 2 Mg/Ml Vial) 2 mg IVP X1 ONE Stop: 10/18/24 08:25 Last Admin: 10/18/24 08:27 Dose: 2 mg Documented By: HARRY Lorazepam (Lorazepam 2 Mg/Ml Vial) Confirm Administered Dose 2 mg .ROUTE .STK-MED ONE Stop: 10/18/24 08:26 Last Admin: 10/18/24 08:30 Dose: Not Given Documented By: HARRY Non-Admin Reason: stk med Midazolam HCl (Midazolam Inj 1 Mg/Ml Vial 2 Ml) Confirm Administered Dose 4 mg .ROUTE .STK-MED ONE Stop: 10/18/24 06:18 Last Admin: 10/18/24 06:45 Dose: Not Given Documented By: BELEN Non-Admin Reason: Override Medication Midazolam HCl (Midazolam Inj 1 Mg/Ml Vial 2 Ml) 2 mg IVP X1 ONE Stop: 10/18/24 06:29 Last Admin: 10/18/24 06:28 Dose: 2 mg Documented By: BELEN Ondansetron HCl (Ondansetron Inj 2 Mg/Ml Inj 2 Ml) 4 mg IVP X1 ONE; Protocol Stop: 10/17/24 14:06 Last Admin: 10/17/24 14:16 Dose: 4 mg Documented By: TYLER Rocuronium Bandy (Rocuronium Inj 10 Mg/Ml Vial 10 Ml) 10 mg IVP X1 ONE Stop: 10/17/24 15:18 Last Admin: 10/17/24 15:35 Dose: Not Given Documented By: TYLER Non-Admin Reason: Cancelled by Provider Rocuronium Bandy (Rocuronium Inj 10 Mg/Ml Vial 10 Ml) 100 mg IV X1 ONE Stop: 10/17/24 15:34 Last Admin: 10/17/24 15:37 Dose: 100 mg Documented By: TYLER Co-signed By: SB Comments: med given for sedation Sodium Bicarbonate (Sodium Bicarb Inj 8.4% 1 Meq/Ml 50 Ml Vial) 50 meq IV X1 ONE Stop: 10/17/24 14:49 Last Admin: 10/17/24 15:02 Dose: 50 meq Documented By: TYLER Sodium Bicarbonate (Sodium Bicarb Inj 8.4% 1 Meq/Ml 50 Ml Vial) 50 meq IV X1 ONE Stop: 10/17/24 14:49 Last Admin: 10/17/24 15:02 Dose: 50 meq Documented By: DB Sodium Bicarbonate (Sodium Bicarb Inj 8.4% Syr 50 Ml Syringe) 50 ml IV X1 ONE Stop: 10/17/24 15:46 Last Admin: 10/17/24 15:54 Dose: 50 ml Documented By: DB Sodium Bicarbonate (Sodium Bicarb Inj 8.4% 1 Meq/Ml 50 Ml Vial) 50 meq IV X1 ONE Stop: 10/17/24 18:30 Last Admin: 10/17/24 18:47 Dose: 50 meq Documented By: GE Sodium Bicarbonate (Sodium Bicarb Inj 8.4% 1 Meq/Ml 50 Ml Vial) 50 meq IV X1 ONE Stop: 10/17/24 18:31 Last Admin: 10/17/24 18:47 Dose: 50 meq Documented By: GE Sodium Chloride (Sodium Chloride Rt 10% 15 Ml Nebu) 5 ml INH X1 ONE Stop: 10/17/24 16:44 Last Admin: 10/18/24 00:21 Dose: Not Given Documented By: RH Non-Admin Reason: Duplicate Medication on eMAR Sodium Chloride (Sodium Chloride Rt 10% 15 Ml Nebu) 5 ml INH X1 ONE Stop: 10/17/24 17:32 Diagnosis Differential diagnosis: Uremic DKA hypoglycemia sepsis
[2024-10-17] MEDS: RINGERS LACTATED 1000 ML 1,000 ML 999 ML IV ×4 (14:16→15:32)
[2024-10-17] MEDS: ONDANSETRON INJ 2 MG/ML INJ 2 ML 4 MG IVP (14:16)
[2024-10-17 14:23] LABS: Basophils % (Auto) 0 % (0-2.5); Eosinophils % (Auto) 0 % (0-10); Hematocrit 46.9 % (36.0-46.0); Hemoglobin 14.4 g/dL (12.0-16.0); Immature Granulocytes % (Auto) 1 % (0-0); Immature Granulocytes Auto 0.09 Thou/mm3 (0.00-0.00); Lymphocytes # (Auto) 1.7 Thou/mm3 (1.0-4.8); Lymphocytes % (Auto) 17 % (10-50); Mean Corpuscular HGB Conc 30.7 g/dl (31.0-37.0); Mean Corpuscular Hemoglobin 28.4 pg (25.0-35.0); Mean Corpuscular Volume 93 fL (80-100); Monocytes # (Auto) 0.8 Thou/mm3 (0.0-0.8); Monocytes % (Auto) 8 % (0-12); Neutrophils # (Auto) 7.5 Thou/mm3 (1.8-7.7); Neutrophils % (Auto) 74 % (37-80); Nucleated Red Blood Cell % 0 /100 WBC (0); Platelet Count 328 Thou/mm3 (140-440); RDW Standard Deviation 51.8 fL (36.4-46.3); Red Blood Count 5.07 Miln/mm3 (4.00-5.20); White Blood Count 10.1 Thou/mm3 (3.6-11.0)
[2024-10-17 14:24] LABS: Base Excess -30 (-3-3); HCO3 3 mEq/L (20-26); Inspired Oxygen, FIO2 21 %; O2 Saturation 86 % (91-98); PCO2 20 mmHg (32.0-48.0); PO2 76 mmHg (83-108)
[2024-10-17 14:29] LABS: Allen Test Performed/OK; Puncture Site Left Radial
[2024-10-17 14:30] LABS: pH, Arterial 6.84 (7.35-7.45)
[2024-10-17 14:33] LABS: INR 1.1 (0.9-1.3); Partial Thromboplastin Time 37.2 Seconds (22.0-36.0); Prothrombin Time 11.5 Seconds (9.0-12.2)
[2024-10-17 14:36] LABS: Alanine Aminotransferase 53 U/L (10-49); Albumin, Serum 4.5 gm/dL (3.5-5.0); Albumin/Globulin Ratio 1.5 (1.2-2.2); Alkaline Phosphatase 76 U/L (46-116); Anion Gap 41 (7-16); Aspartate Amino Transferase 44 U/L (0-34); Bilirubin,Total 0.3 mg/dL (0.3-1.2); Blood Urea Nitrogen 97 mg/dL (9-23); Calcium 9.4 mg/dL (8.3-10.6); Calcium (Corrected) 9.4 mg/dL (8.5-10.1); Chloride 82 mMol/L (98-107); Glucose 77 mg/dL (74-106); Lipase 58 U/L (12-53); Magnesium 3.2 mg/dL (1.6-2.6); Osmolality,Calculated 295 (275-295); Sodium 133 mMol/L (136-145); Total Protein 7.5 gm/dL (5.7-8.2)
[2024-10-17 14:39] LABS: Carbon Dioxide < 10.0 mMol/L (20.0-31.0); Potassium 7.4 mMol/L (3.4-5.1); Troponin I 0.049 ng/mL (0.0-0.045)
[2024-10-17 14:58] LABS: Collection Type, Urine Clean Catch
[2024-10-17] MEDS: ALBUTEROL RT 2.5 MG/0.5 ML NEBU 10 MG INH (15:00)
[2024-10-17 15:01] LABS: B-Type Natriuretic Peptide 503 pg/mL (0-100)
[2024-10-17 15:02] LABS: BUN/Creatinine Ratio 5 Ratio (12-20); Estimated Creatinine Clearance 4.2 mL/min (>60); LDH (Lactate Dehydrogenase) 257 U/L (120-246); Procalcitonin 0.99 ng/ml (0.0-0.49); eGFR 2 See Note
[2024-10-17] MEDS: SODIUM BICARB INJ 8.4% 1 mEq/ML 50 ML VIAL 50 MEQ IV ×4 (15:02→18:47)
[2024-10-17] MEDS: INSULIN HUM REGULAR 1 UNIT/0.01 ML (PER UNIT) 5 UNIT IV (15:04)
[2024-10-17 15:05] LABS: Bilirubin,Urine Negative (Negative); Blood,Urine 1+ (Negative); Clarity,Urine Turbid (Clear/Hazy); Color,Urine Yellow (Lt Yel-Yel); Glucose, Urine 1+ (Negative); Hyaline Casts,Urine < 1 /hpf (0-1); Ketones,Urine Trace (Negative); Leukocyte Esterase,Urine Positive (Negative); Nitrite,Urine Negative (Negative); PH,Urine 5.5 (5.0-7.0); Protein,Urine 3+ (Neg - Trace); RBC,Urine 5 /hpf (0-3); Specific Gravity,Urine 1.031 (1.001-1.035); Squamous Epithelial Cell,Urine 7 /hpf (0-5); Urobilinogen,Urine Negative mg/dL (0.0-1.0); WBC,Urine 20 /hpf (0-5)
[2024-10-17] MEDS: DEXTROSE 50%-WATER INJ 50 ML SYRINGE IV (15:05)
[2024-10-17] MEDS: CALCIUM GLUCONATE 10% INJ 1 GM/10 ML VIAL IV (15:05)
[2024-10-17] MEDS: SODIUM CHLORIDE RT SOL 0.9% 3 ML NEBU INH (15:05)
[2024-10-17 15:09] LABS: Amphetamine/Methamp Scrn,U Negative (Negative); Barbiturate Screen,Urine Negative (Negative); Benzodiazepines Screen,Urine Negative (Negative); Benzoylecgonine Screen, Ur Negative (Negative); Fentanyl Screen,Urine Negative (Negative); Opiate Screen,Urine Negative (Negative); THC Screen,Urine Negative (Negative)
[2024-10-17 15:16] LABS: Beta Hydroxybutyrate 5.3 mmol/L (<0.6)
--- NOTE | 2024-10-17 15:17 | XR_ITS ---
Examination: AP chest single view Technique one AP portable semiupright chest single view Date and time: October 17, 2024 1548 hours Comparison October 17, 2024 1435 hours INDICATIONS: Hypoxic respiratory failure postintubation FINDINGS: Endotracheal tube tip 2.8 cm above Tasia Mild enlargement cardiac contour Mild vascular congestion Orogastric tube tip in stomach satisfactory position IMPRESSION: Mild vascular congestion Endotracheal tube tip 2.8 cm above Tasia
[2024-10-17 15:20] LABS: Creatinine (Component) 19.5 mg/dL (0.6-1.3)
[2024-10-17 15:27] LABS: Base Excess -29 (-3-3); HCO3 4 mEq/L (20-26); O2 Saturation 93 % (91-98); PCO2 23 mmHg (32.0-48.0); PO2 96 mmHg (83-108)
[2024-10-17 15:28] LABS: Allen Test Performed/OK; Inspired O2, VO2 Liters 8 L/min; Puncture Site Right Radial
[2024-10-17 15:29] LABS: pH, Arterial 6.86 (7.35-7.45)
[2024-10-17] MEDS: ETOMIDATE INJ 2 MG/ML VIAL 10 ML 20 MG IVP (15:37)
[2024-10-17] MEDS: ROCURONIUM INJ 10 MG/ML VIAL 10 ML 100 MG IV (15:37)
[2024-10-17] MEDS: fentaNYL 2,500 MCG/250 ML BAG 2,500 MCG/250 ML BAG IV (15:45)
--- NOTE | 2024-10-17 15:48 | ECHO_ITS ---
Transthoracic Echo Report Ht (in): 64 Wt (lb): 240 Exam Location: Echo Lab Status: Emergency Moving Picture Operator: Katina Simpson Indications: Procedure Performed: BP: 109 / 57 HR: 97 Technical Quality: Technically difficult study MEASUREMENTS (Male / Female) Normal Values 2D ECHO LV Diastolic Diameter PLAX 3.2 cm 4.2 - 5.9 / 3.9 - 5.3 cm LV Systolic Diameter PLAX 2.3 cm IVS Diastolic Thickness 1.4 cm 0.6 - 1.0 / 0.6 - 0.9 cm LVPW Diastolic Thickness 1.4 cm 0.6 - 1.0 / 0.6 - 0.9 cm LV Relative Wall Thickness 0.9 LVOT Diameter 1.8 cm LA Systolic Diameter LX 2.7 cm 3.0 - 4.0 / 2.7 - 3.8 cm M-MODE Aortic Root Diameter MM 2.3 cm LA Systolic Diameter MM 3.0 cm LA Ao Ratio MM 1.3 AV Cusp Separation MM 1.5 cm DOPPLER AV Peak Velocity 188.0 cm/s AV Peak Gradient 14.1 mmHg AV Mean Gradient 6.0 mmHg AV Velocity Time Integral 28.7 cm LVOT Peak Velocity 155.0 cm/s LVOT Peak Gradient 9.6 mmHg LVOT Velocity Time Integral 26.8 cm LVOT Cardiac Index 2908.6 cm?/min?m? AV Area Cont Eq vti 2.4 cm? AV Area Cont Eq pk 2.1 cm? MV Area PHT 4.2 cm? Mitral E Point Velocity 62.6 cm/s Mitral A Point Velocity 79.5 cm/s Mitral E to A Ratio 0.8 LV E' Lateral Velocity 8.6 cm/s Mitral E to LV E' Lateral Ratio 7.3 LV E' Septal Velocity 6.0 cm/s Mitral E to LV E' Septal Ratio 10.5 PV Peak Velocity 99.1 cm/s PV Peak Gradient 3.9 mmHg FINDINGS Left Ventricle Normal left ventricular size and systolic function with no obvious regional wall motion abnormalities. Mild LVH. The ejection fraction is visually estimated at 55-60 %. There is grade I diastolic dysfunction of the left ventricle (impaired relaxation pattern). Right Ventricle The right ventricle is normal in size and systolic function. Left Atrium The left atrium is normal by two-dimensional, color flow and Doppler imaging with no structural abnormalities, no thrombus formation present. Right Atrium The right atrium is normal by two-dimensional imaging, color flow and Doppler imaging with no structural abnormalities, no thrombus formation present. Atrial Septum The interatrial septum appears normal with no evidence of a shunt. Aorta The aorta is normal by two-dimensional, color flow and Doppler interrogation. Mitral Valve The mitral valve is normal by two-dimensional, color flow and Doppler interrogation. Trace MR. Aortic Valve The aortic valve is trileaflet and normal by two-dimensional, color flow and Doppler interrogation. There is no significant aortic valve regurgitation. Tricuspid Valve The tricuspid valve is normal by two-dimensional, color flow and Doppler interrogation. Trace TR. Pulmonic Valve The pulmonic valve is not well visualized. There is no significant pulmonic valve regurgitation. Vessels Inferior vena cava not well visualized. Pericardium The pericardium is normal by two-dimensional imaging. There is no significant pericardial effusion. CONCLUSIONS Indication: LV evaluation Normal left ventricular size. Mild LVH. Estimated EF 55-60 %. There is grade I diastolic dysfunction. The RV is normal in size and systolic function. Trace MR and TR. Inferior vena cava not well visualized. Vinny Roberts (Electronically Signed) Final Date: 18 Oct 2024 12:09
[2024-10-17] MEDS: Sodium Bicarb Inj 8.4% SYR 50 ML SYRINGE IV (15:54)
[2024-10-17] MEDS: Norepinephrine/D5W 8mg/250ml 8 MG/250 ML BAG 10.206 MG IV (16:00)
[2024-10-17] MEDS: Sodium Bicarb 8.4% 50ml Vial* 88.23 MEQ in DEXTROSE 5%-WATER 500 ML 100 MEQ IV ×2 (16:08→22:21)
[2024-10-17] MEDS: MIDAZOLAM/NS 100 MG IVPB 100 MG/100 ML BAG IV (16:10)
[2024-10-17 16:18] LABS: Base Excess -30 (-3-3); HCO3 5 mEq/L (20-26); O2 Saturation 99 % (91-98); PCO2 35 mmHg (32.0-48.0); PO2 261 mmHg (83-108)
[2024-10-17 16:20] LABS: pH, Arterial 6.76 (7.35-7.45)
[2024-10-17 16:21] LABS: Allen Test Performed/OK; Puncture Site Left Radial
--- NOTE | 2024-10-17 16:28 | XR_ITS ---
Examination: AP chest single view Technique one AP portable semiupright chest single view Date and time: October 17, 2024 1749 hours Comparison September 17, 2024 1548 hours INDICATIONS: Postinsertion tri flow catheter FINDINGS: Mild large cardiac contour Endotracheal tube tip 22 mm above the junior Mild opacity in the right lower lung zone suspicious for early pneumonia Right internal jugular Tri flow catheter tip SVC Orogastric tube in stomach Ectatic and enlarged thoracic aorta IMPRESSION: Interval insertion right internal jugular Tri flow catheter, tip in SVC satisfactory position, no pneumothorax
[2024-10-17 16:36] LABS: Creatine Kinase 137 U/L (34-171); Glucose Estimated Average 214 mg/dL (80-131); Hemoglobin A1C 9.1 % Hgb (4.8-6.0)
[2024-10-17 17:09] LABS: Reflex Lactate? Y
--- NOTE | 2024-10-17 17:12 | PD.NEPHCONS ---
History of Present Illness Data of Consult Consult date: 10/17/24 Requesting Physician: Cindy Reeves MD Primary Care Provider: Jossue Pollack PA-C Consult Narrative Reason for consult: Intractable metabolic acidosis, KARTHIKEYAN History of present illness: Chart review done. Ms. Morris is a 49-year-old lady with extensive history of diabetes, hypertension, dyslipidemia-follows up at [facility] was brought to the emergency department with weakness decreased appetite and some confusion going on for the last 2 weeks. As per the ER records patient was recently diagnosed with diabetes and was started on Synjardy, Zepbound and since then has not been feeling well. 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 daily, ondansetron 8 milligrams p.o. as needed In the ED patient had a blood pressure of 103/51, pulse 97, RR 30, temperature 97.8, O2 sat 96 on 7 L nasal cannula initially subsequently due to acute respiratory failure was intubated. Labs showed ABG pH 6.84, pCO2 20. Sodium 133, potassium 7.4, bicarbonate less than 10, anion gap 41, BUN 97, creatinine 19.5, lactic acid 17, AST 44, ALT 53, BNP 503, troponin 0.049, lipase 58, beta hydroxy 5.3, Pro-Sunny 0.99, urinalysis shows UTI In the emergency department patient received 5 L of Ringer lactate and 3 A of bicarb pushes. Patient was started on fluids and subsequently transferred to ICU. Nephrology consultation was requested in need of emergency dialysis due to severe intractable metabolic acidosis, KARTHIKEYAN. In the ICU patient became hypotensive needing pressors. CRRT was initiated after line was placed by ICU team. cc:: cc: Cindy Reeves MD Review of Systems Review of Systems ROS Unobtainable: unobtainable due to medical condition and due to endotracheal tube Past Medical History Past Medical History CARDIAC: Positive Hypercholesterolemia and Hypertension; Negative Congestive Heart Failure RESPIRATORY: Negative Chronic Obstructive Pulmonary Disease (COPD) GENITOURINARY: Negative Renal Disease ENDOCRINE: Positive Diabetes Mellitus Type 2; Negative Diabetes Mellitus Type 1 Social History SMOKING STATUS: Never smoker Meds Home Medications and Allergies Home Medications ?Medication ?Instructions ?Recorded ?Confirmed ?Type atorvastatin 40 mg tablet 40 mg PO QDAY 10/18/24 10/18/24 History celecoxib 200 mg capsule 200 mg PO BID 10/18/24 10/18/24 History diphenoxylate-atropine 2.5 2 tab PO QID 10/18/24 10/18/24 History mg-0.025 mg tablet (Lomotil) empagliflozin 12.5 mg-metformin ER 2 tab PO QDAY 10/18/24 10/18/24 History 1,000 mg tablet,extended rel 24 hr (Synjardy XR) furosemide 20 mg tablet 20 mg PO BID 10/18/24 10/18/24 History lisinopril 10 mg tablet 10 mg PO QDAY 10/18/24 10/18/24 History ondansetron 8 mg disintegrating 8 mg PO TID 10/18/24 10/18/24 History tablet tirzepatide (weight loss) 2.5 2.5 mg subcut QWEEK 10/18/24 10/18/24 History mg/0.5 mL subcutaneous pen injector (Zepbound) tramadol 50 mg tablet 50 mg PO BID 10/18/24 10/18/24 History Allergies Allergy/AdvReac Type Severity Reaction Status Date / Time No Known Allergies Allergy Verified 03/23/18 21:34 Exam Vital Signs Temp Pulse Resp BP Pulse Ox O2 Del Method O2 Flow Rate 36.6 C 98 32 H 110/47 L 100 Aerosol Mask 7 10/17/24 14:22 10/17/24 17:00 10/17/24 17:00 10/17/24 17:00 10/17/24 17:00 10/17/24 15:23 10/17/24 15:23 FiO2 80 10/17/24 16:48 Narrative Exam GENERAL APPEARANCE: Patient currently seen in ICU. Intubated, sedated CARDIOVASCULAR: Heart regular, no murmurs LUNGS/CHEST: Chest clear to auscultation. No rales, rhonchi, wheezing ABDOMEN: Soft, nontender, nondistended. No masses. Normal bowel sounds. EXTREMITIES: No edema, clubbing or cyanosis. SKIN: Skin exam normal without any rashes MUSCULOSKELETAL: in bed NEUROLOGICAL : Intubated, sedated Results Labs 10/18/24 06:11 10/18/24 13:51 Labs: Short CBC 10/17/24 Range/Units 14:05 WBC 10.1 (3.6-11.0) Thou/mm3 Hgb 14.4 (12.0-16.0) g/dL Hct 46.9 H (36.0-46.0) % Plt Count 328 (140-440) Thou/mm3 BMP 10/17/24 14:05 Sodium 133 L Potassium 7.4 H* Chloride 82 L Carbon Dioxide < 10.0 L* BUN 97 H Creatinine 19.5 H* Glucose 77 Calcium 9.4 Cardiac Enzymes 10/17/24 Range/Units 14:05 Total Creatine Kinase 137 (34-171) U/L Troponin I 0.049 H* (0.0-0.045) ng/mL Liver Function 10/17/24 Range/Units 14:05 Total Bilirubin 0.3 (0.3-1.2) mg/dL AST 44 H (0-34) U/L ALT 53 H (10-49) U/L Alkaline Phosphatase 76 (46-116) U/L Albumin 4.5 (3.5-5.0) gm/dL Urine 10/17/24 Range/Units 14:51 Urine Color Yellow (Lt Yel-Yel) Urine Clarity Turbid A (Clear/Hazy) Urine pH 5.5 (5.0-7.0) Ur Specific [place] 1.031 (1.001-1.035) Urine Protein 3+ A (Neg - Trace) Urine Glucose (UA) 1+ A (Negative) ABG Interpretation ABG results: 10/17/24 10/17/24 10/17/24 14:15 15:25 16:14 ABG pH 6.84 L* 6.86 L* 6.76 L* D ABG pCO2 20 L 23 L 35 D ABG pO2 76 L 96 D 261 H D ABG HCO3 3 L* 4 L* 5 L* ABG O2 Saturation 86 L 93 99 H ABG Base Excess -30 L -29 L -30 L Assessment & Plan Assessment and plan (1) Acute renal failure: Status: Acute Assessment and plan: Acute renal failure secondary to prerenal azotemia-uncontrolled diabetes versus Jardiance, metformin, Celebrex, lisinopril, Lasix. Agree with IV fluid resuscitation. No urinary output-decided to proceed with Dialysis. Patient with severe metabolic acidosis and a pH of 6.85 currently on pressors. Decided to proceed with CRRT. CRRT for 12 hours,, blood flow 150, dialysate flow 100, saline flush 100 mL/h, 2K, 40 bicarbonate, 3.5 calcium, no UF, no heparin ordered. Critical care time spent more than 45 minutes regarding plan of care and disease management. Spoke to TRACER BULLET CHARGING MACHINE OPERATOR regarding CRRT/[place] (2) Acute hyperkalemia: Status: Acute Assessment and plan: Patient's potassium 7.4 probably related to KARTHIKEYAN/severe metabolic acidosis. Started on CRRT (3) Acidosis: Status: Acute Assessment and plan: Intractable metabolic acidosis-for DKA/renal failure/med related (Jardiance and metformin) On CRRT (4) DKA (diabetic ketoacidosis): Status: Acute Assessment and plan: DKA protocol per ICU (5) Acute hypoxic respiratory failure: Status: Acute Assessment and plan: Patient currently on ventilator. Additional Assessment & Plan Additional Plan: Plan of care discussed with ICU team. Thank you Cindy for allowing me to participate in the care of Ms. Morris
--- NOTE | 2024-10-17 17:32 | PD.RESPROC ---
Procedures Procedure Date / Time 10/17/24 1470 Arterial Line Indication(s): frequent arterial line sampling and shock Informed consent obtained: obtained from surrogate decision maker Time out done, and the following verified: correct patient, side and site, procedure and patient position Size (Gauge): 20 Technique used: guide wire technique Post-Procedure: line sutured into place and dry sterile dressing placed Patient tolerated procedure: well and no complications EBL(ml): 5 Complications: none Site: right Procedure comment: Procedure was done at bedside and patient tolerated procedure well.
--- NOTE | 2024-10-17 17:34 | PD.RESHP ---
Documentation for date of: 10/17/24 HPI History of Present Illness Chief complaint: Confusion and abdominal pain History of present illness: Patient is a 49-year-old female past medical history of diabetes and hypertension, hyperlipidemia who is coming to the ED due to progressive weakness and confusion with decreased appetite for the last 2 weeks. Patient was accompanied by son and her who contributed to the story as patient was confused and lethargic with shortness of breath and a GCS of 10 at bedside. Son states that she was recently diagnosed with diabetes and obesity after which she was started on weight loss medication set down 2.5 as well as Synjardy 12.5 and 1000 mg. Son states that patient has had decreased appetite with abdominal pain and nausea and inability to eat with frequent vomiting of the little bit of water she tried to drink progressively over the last 2 weeks when she started the medication. She states that despite the inability to eat she continued to take the medications including the Synjardy. They decided to bring the patient today as she was confused and hard to arouse at home. Past medical history: As above Past surgical history: None Allergies none Social history: Does not smoke or drink, she is a [id number] mom and usually ambulates and is able to do her ADLs independently Medications: Tramadol 50 mg, Synjardy (empagliflozin and metformin combination), zepbound 2.5, celecoxib 200 mg, atorvastatin 40 mg, diphenoxylate hydrochloride 2.5 x 4 times a day as needed, lisinopril 10 ondansetron 8 In the ED patient had a blood pressure of 103/51, pulse 97, RR 30, temperature 97.8, O2 sat 96 on 7 L nasal cannula initially Due to patient's impending respiratory failure she was intubated with a tidal volume of 450, PEEP of 5 and a respiratory rate of 32 CBC showed a WBC of 10.1, hemoglobin of 14.4 and a platelet count of 328 ABG initially was 6.84 with a CO2 of 20 which barely improved to pH was 6.85 despite 100 mEq amp push of bicarb. At that time an additional 50 mEq of bicarb were pushed and started on a bicarb drip CMP showed a sodium of 133 with a potassium of 7.4 chloride of 82 and a carbon dioxide less than 10 Anion gap is 41 with a BUN of 97 and a creatinine of 19.5 A1c was 9.1 and a lactic acid of 17 AST was 44 ALT of 53 and a BNP was elevated at 503 with a troponin of 0.049 Lipase was 58 and beta-hydroxybutyrate was 5.3 with a Pro-Sunny of 0.99 UA was positive for UTI with leukocyte esterase 20 WBCs and 5 RBCs Patient received a total of 5 L boluses of LR in the ED 150 pushes of bicarb She also got albuterol 10 mg inhaled as well as insulin 5 units and calcium gluconate 1 g in the ED for the potassium. Rocuronium and etomidate was used to intubate the patient. Levophed was started as well as fentanyl. Patient will be managed in the ICU for severe acidemia likely secondary to metformin intoxication in the setting of renal failure from severe dehydration Review of Systems Review of Systems ROS Unobtainable: unobtainable due to mental status Exam Vital Signs Temp Pulse Resp BP Pulse Ox O2 Del Method O2 Flow Rate 97.8 F 96 32 H 103/51 L 100 Aerosol Mask 7 10/17/24 14:22 10/17/24 17:15 10/17/24 17:15 10/17/24 17:15 10/17/24 17:15 10/17/24 15:23 10/17/24 15:23 FiO2 80 10/17/24 16:48 Narrative Exam Constitutional: Obese female that is intubated and mechanically ventilated Head: Normocephalic/Atraumatic Eyes: PERRL , no conjunctival injection , symmetrical lids. ENMT: Dry mucous membranes with OG draining dark gastric contents Neck: Supple to palpation, No JVD. Right IJ Tri flow CVS: RRR, S1 and S2 present, no murmurs, rubs or gallops . RESP: CTAB, no SOB, no rales, rhonchi or wheezing. No respiratory Distress GI: Normal BS, Nontender/Nondistended. MSK: Full range of motion, No trauma or deformities or masses. Right femoral A-line Skin: Warm to touch, Dry. No pitting edema in the lower extremities. There is petechial in the patient's neck and chest that is nonblanching but nowhere else in the body Neuro: Intubated and sedated. Patient was lethargic prior to intubation but able to nod to simple answers. Results: Labs 10/20/24 04:45 10/20/24 04:45 Labs: Short CBC 10/17/24 Range/Units 14:05 WBC 10.1 (3.6-11.0) Thou/mm3 Hgb 14.4 (12.0-16.0) g/dL Hct 46.9 H (36.0-46.0) % Plt Count 328 (140-440) Thou/mm3 BMP 10/17/24 14:05 Sodium 133 L Potassium 7.4 H* Chloride 82 L Carbon Dioxide < 10.0 L* BUN 97 H Creatinine 19.5 H* Glucose 77 Calcium 9.4 Cardiac Enzymes 10/17/24 Range/Units 14:05 Total Creatine Kinase 137 (34-171) U/L Troponin I 0.049 H* (0.0-0.045) ng/mL Liver Function 10/17/24 Range/Units 14:05 Total Bilirubin 0.3 (0.3-1.2) mg/dL AST 44 H (0-34) U/L ALT 53 H (10-49) U/L Alkaline Phosphatase 76 (46-116) U/L Albumin 4.5 (3.5-5.0) gm/dL Urine 10/17/24 Range/Units 14:51 Urine Color Yellow (Lt Yel-Yel) Urine Clarity Turbid A (Clear/Hazy) Urine pH 5.5 (5.0-7.0) Ur Specific [place] 1.031 (1.001-1.035) Urine Protein 3+ A (Neg - Trace) Urine Glucose (UA) 1+ A (Negative) ABG Interpretation ABG results: 10/17/24 10/17/24 10/17/24 14:15 15:25 16:14 ABG pH 6.84 L* 6.86 L* 6.76 L* D ABG pCO2 20 L 23 L 35 D ABG pO2 76 L 96 D 261 H D ABG HCO3 3 L* 4 L* 5 L* ABG O2 Saturation 86 L 93 99 H ABG Base Excess -30 L -29 L -30 L Quality Measures Quality Measures VTE prophylaxis Medications Home Medications and Allergies Home Medications ?Medication ?Instructions ?Recorded ?Confirmed ?Type atorvastatin 40 mg tablet 40 mg PO QDAY 10/18/24 10/18/24 History celecoxib 200 mg capsule 200 mg PO BID 10/18/24 10/18/24 History diphenoxylate-atropine 2.5 2 tab PO QID 10/18/24 10/18/24 History mg-0.025 mg tablet (Lomotil) empagliflozin 12.5 mg-metformin ER 2 tab PO QDAY 10/18/24 10/18/24 History 1,000 mg tablet,extended rel 24 hr (Synjardy XR) furosemide 20 mg tablet 20 mg PO BID 10/18/24 10/18/24 History lisinopril 10 mg tablet 10 mg PO QDAY 10/18/24 10/18/24 History ondansetron 8 mg disintegrating 8 mg PO TID 10/18/24 10/18/24 History tablet tirzepatide (weight loss) 2.5 2.5 mg subcut QWEEK 10/18/24 10/18/24 History mg/0.5 mL subcutaneous pen injector (Zepbound) tramadol 50 mg tablet 50 mg PO BID 10/18/24 10/18/24 History Allergies Allergy/AdvReac Type Severity Reaction Status Date / Time No Known Allergies Allergy Verified 03/23/18 21:34 Visit Medications Enoxaparin Sodium (Enoxaparin Sod Inj 40 Mg/0.4 Ml Syringe) 40 mg SC QDAY SOHA Stop: 10/31/24 15:44 Famotidine (Famotidine Inj 10 Mg/Ml Vial 2 Ml) 20 mg IVP QDAY SOHA Stop: 11/16/24 15:44 Midazolam HCl (Versed Pf Inj In Ns Premix) 100 mg in 100 mls @ 1 mls/hr IV .Q24H PRN; Protocol PRN Reason: PER PROTOCOL Stop: 10/22/24 15:16 Last Admin: 10/17/24 16:10 Dose: 1 mg/hr, 1 mls/hr Fentanyl Citrate (Sublimaze Inj 2,500 Mcg/250 Ml Bag) 2,500 mcg in 250 mls @ 2.5 mls/hr IV .Q24H PRN; Protocol PRN Reason: PER PROTOCOL Stop: 10/22/24 15:18 Last Admin: 10/17/24 15:45 Dose: 25 mcg/hr, 2.5 mls/hr Lactated Ringer's (Lactated Ringers) 1,000 mls @ 250 mls/hr IV .Q4H ONE Stop: 10/17/24 19:20 Sodium Bicarbonate 88.23 meq/ (Dextrose) 588.23 mls @ 100 mls/hr IV .Q5H53M SOHA Stop: 11/16/24 15:44 Last Admin: 10/17/24 16:08 Dose: 100 mls/hr Norepinephrine/Dextrose (Levophed In D5w 8mg/250ml) 8 mg in 250 mls @ 10.206 mls/hr IV .Q24H PRN; Protocol PRN Reason: PER PROTOCOL Stop: 11/16/24 15:49 Last Titration: 10/17/24 16:50 Dose: 0.17 mcg/kg/min, 34.7 mls/hr Sodium Chloride (Sodium Chloride Rt Gogo 0.9% 3 Ml Nebu) 3 ml INH PRN PRN PRN Reason: SOLN Stop: 11/16/24 14:40 Last Admin: 10/17/24 15:05 Dose: 3 ml Discontinued Medications Albuterol (Albuterol Rt 2.5 Mg/0.5 Ml Nebu) 2.5 mg INH X1 ONE Stop: 10/17/24 14:42 Last Admin: 10/17/24 15:03 Dose: Not Given Albuterol (Albuterol Rt 2.5 Mg/0.5 Ml Nebu) 10 mg INH X1 ONE Stop: 10/17/24 14:50 Last Admin: 10/17/24 15:00 Dose: 10 mg Calcium Gluconate (Calcium Gluconate 10% Inj 1 Gm/10 Ml Vial) 1 gm IV X1 ONE Stop: 10/17/24 14:42 Last Admin: 10/17/24 15:05 Dose: 1 gm Dextrose (Dextrose 50%-Water Inj 50 Ml Syringe) 50 ml IV X1 ONE Stop: 10/17/24 14:42 Last Admin: 10/17/24 15:05 Dose: 50 ml Etomidate (Etomidate Inj 2 Mg/Ml Vial 10 Ml) 20 mg IVP X1 ONE Stop: 10/17/24 15:18 Last Admin: 10/17/24 15:37 Dose: 20 mg Lactated Ringer's (Lactated Ringers) 1,000 mls @ 999 mls/hr IV .Q1H1M ONE Stop: 10/17/24 14:56 Last Infusion: 10/17/24 15:31 Dose: Infused Lactated Ringer's (Lactated Ringers) 1,000 mls @ 999 mls/hr IV .Q1H1M ONE Stop: 10/17/24 14:56 Last Infusion: 10/17/24 15:31 Dose: Infused Lactated Ringer's (Lactated Ringers) 1,000 mls @ 999 mls/hr IV .Q1H1M ONE Stop: 10/17/24 15:33 Last Infusion: 10/17/24 16:18 Dose: Infused Lactated Ringer's (Lactated Ringers) 1,000 mls @ 999 mls/hr IV .Q1H1M ONE Stop: 10/17/24 16:17 Last Infusion: 10/17/24 16:58 Dose: Infused Lactated Ringer's (Lactated Ringers) 1,000 mls @ 999 mls/hr IV .Q1H1M ONE Stop: 10/17/24 16:30 Last Admin: 10/17/24 15:36 Dose: Not Given Norepinephrine Bitartrate (Levophed In Ns 16mg/250ml) 16 mg in 250 mls @ 5.103 mls/hr IV .Q24H PRN; Protocol PRN Reason: PER PROTOCOL Stop: 11/16/24 15:48 Piperacillin/Tazobactam/Dextrose (Zosyn) 3.375 gm in 50 mls @ 100 mls/hr IV X1 ONE Stop: 10/17/24 16:32 Insulin Human Regular (Insulin Hum Regular 1 Unit/0.01 Ml (Per Unit)) 5 unit IV X1 ONE Stop: 10/17/24 14:42 Last Admin: 10/17/24 15:04 Dose: 5 unit Ondansetron HCl (Ondansetron Inj 2 Mg/Ml Inj 2 Ml) 4 mg IVP X1 ONE; Protocol Stop: 10/17/24 14:06 Last Admin: 10/17/24 14:16 Dose: 4 mg Rocuronium Struthers (Rocuronium Inj 10 Mg/Ml Vial 10 Ml) 10 mg IVP X1 ONE Stop: 10/17/24 15:18 Last Admin: 10/17/24 15:35 Dose: Not Given Rocuronium Struthers (Rocuronium Inj 10 Mg/Ml Vial 10 Ml) 100 mg IV X1 ONE Stop: 10/17/24 15:34 Last Admin: 10/17/24 15:37 Dose: 100 mg Sodium Bicarbonate (Sodium Bicarb Inj 8.4% 1 Meq/Ml 50 Ml Vial) 50 meq IV X1 ONE Stop: 10/17/24 14:49 Last Admin: 10/17/24 15:02 Dose: 50 meq Sodium Bicarbonate (Sodium Bicarb Inj 8.4% 1 Meq/Ml 50 Ml Vial) 50 meq IV X1 ONE Stop: 10/17/24 14:49 Last Admin: 10/17/24 15:02 Dose: 50 meq Sodium Bicarbonate (Sodium Bicarb Inj 8.4% Syr 50 Ml Syringe) 50 ml IV X1 ONE Stop: 10/17/24 15:46 Last Admin: 10/17/24 15:54 Dose: 50 ml Sodium Chloride (Sodium Chloride Rt 10% 15 Ml Nebu) 5 ml INH X1 ONE Stop: 10/17/24 16:44 Sodium Chloride (Sodium Chloride Rt 10% 15 Ml Nebu) 5 ml INH X1 ONE Stop: 10/17/24 17:32 Assessment & Plan Plan 49-year-old female past medical history of diabetes and hypertension, hyperlipidemia admitted to the ICU for further management of her severe acidemia Neuro Acute metabolic encephalopathy Secondary to severe acidemia and possibly underlying infection Patient presented with severe acidosis with a pH of 6.84 she also has a UTI Will treat underlying acidemia and treat the infection Will keep patient sedated with Precedex and fentanyl and will have daily SAT's CVS Shock Likely distributive in the setting of severe acidosis and possibly sepsis from infection Patient presented with a UTI and pH of 6.84 that is reluctant to improve despite a total of 250 mill equivalent pushes of bicarb and a bicarb drip Bedside echocardiogram showed good contractility without any tamponade or right atrial engorgement or desatting. Patient received about 5 L of LR in the ED prior to coming up to the ICU Will follow-up with NICOM once patient is stabilized and dialysis is underway Patient is on Levophed and will try to titrate down as her acidemia improves. Will add vasopressin if needed once we passed 0.3 of Levophed and start hydrocortisone as well Troponinemia Patient presenting with a troponin of 0.049 Likely NSTEMI type II from her inability to clear it due to KARTHIKEYAN EKG did not show any obvious ST segment elevations and patient did not complain of any chest pain on presentation BNP was elevated as well at 503 Will continue to monitor patient telemetry Will follow-up troponins in the morning BNP Resp #Acute hypoxic respiratory failure Impending respiratory arrest in the setting of severe acidemia as patient struggled to compensate We sedated and intubated the patient and attempts to control her acidosis Will do ABGs every 4 hours and adjust vent settings as needed to compensate for her acidemia by keeping a high minute ventilation Chest x-ray showed vascular congestion and ET secretions were clear Patient is currently on Zosyn GI #Gastritis Likely in the setting of pill induced gastritis as patient was taking medications despite decreased p.o. intake nausea and vomiting Orogastric tube drained dark gastric material Hemoglobin was 14.4 Patient is on Protonix 40 mg IV twice daily Will trend H&H daily and look for any more signs of bleeding Will keep patient n.p.o. Transaminases Likely reactive in the setting of acidemia AST was 44 and ALT was 53 Will trend CMP Renal #KARTHIKEYAN Likely ATN and from prerenal acidemia as well as possible interstitial nephritis Patient presented with creatinine of 19.5 And a BUN of 97 We do not have a baseline. Will treat with aggressive fluid resuscitation as patient got 5 L of fluids High anion gap metabolic acidosis Metformin toxicity Lactic acidemia Patient continue to take Synjardy which includes empagliflozin and metformin despite her inability to keep any food down She continued to become severely dehydrated patient likely developed metformin toxicity which is contributing to the severe acidemia as she presented with a lactic acid of 17 and climbed up to 21 Patient was also taking diphenoxylate hydrochlorothiazide 4 times a day for diarrhea which could have been contributing to her severely dehydrated state and worsening acidosis through bicarb last We placed trial catheter and patient is currently receiving CRRT Will perform renal panel every 4 hours as well as mag and Phos and replenish as needed Lactic acid every 4 hours Endocrine #Diabetes type 2 #Mild DKA Patient presented with a high anion gap with a beta-hydroxybutyrate of 5.8 and glucose of 77 There is a component of starvation ketoacidosis as patient has not been able to tolerate anything for the last 2 weeks Patient's likely euglycemic DKA which is mild compared to the lactic acidosis due to metformin toxicity Patient received 5 units of lispro in the ED in attempt to bring down her potassium after which she had a hypoglycemic episode of [address] the patient on a D10 drip and start on a sliding scale Will trend beta-hydroxybutyrate as we attempt to also close from mild DKA ID/Skin Septic shock Likely secondary to UTI Patient had a UTI on presentation Will pending sputum cultures and blood cultures as well as urine cultures Patient is currently on Zosyn Will follow-up with daily CBCs and monitor for fevers Hematology Stable Heparin subcu for DVT prophylaxis Hospital Maintenance: FEN: N.p.o., patient is currently on D10W drip DVT PPx: Heparin subcu GI PPx: Protonix 40 IV twice daily IV lines: Right IJ Tri flow, right femoral A-line, peripheral IVs Vásquez: Inserted Code Status: Full code Dispo: Patient will remain in ICU for further management of her severe acidemia I discussed patient's care with chore worker, Dr Leandro Branch MD, PGY3
[2024-10-17 18:20] LABS: Base Excess -29 (-3-3); Inspired Oxygen, FIO2 80 %; O2 Saturation 99 % (91-98); PCO2 24 mmHg (32.0-48.0); PO2 217 mmHg (83-108)
[2024-10-17 18:24] LABS: Allen Test Not Performed; HCO3 4 mEq/L (20-26); Puncture Site Arterial Line; pH, Arterial 6.83 (7.35-7.45)
[2024-10-17 18:28] LABS: Beta Hydroxybutyrate 5.8 mmol/L (<0.6)
--- NOTE | 2024-10-17 18:45 | PC.NURSE ---
UNABLE TO COMPLETE GENERAL ADMISSION ASSESMENT AND HISTORY PT UNSTBALE UPON ARRIVAL TO ICU. LIMITED PHYSICAL ASSESSMENT. PT STARTED ON TABLO HD AND STABLE. REPORT GIVEN TO LOLA OBRIEN.
[2024-10-17 18:50] LABS: Albumin, Serum 3.5 gm/dL (3.5-5.0); Anion Gap 41 (7-16); BUN/Creatinine Ratio 5 Ratio (12-20); Blood Urea Nitrogen 84 mg/dL (9-23); Calcium 9.1 mg/dL (8.3-10.6); Calcium (Corrected) 9.5 mg/dL (8.5-10.1); Chloride 85 mMol/L (98-107); Estimated Creatinine Clearance 4.9 mL/min (>60); Glucose 208 mg/dL (74-106); Osmolality,Calculated 303 (275-295); Potassium 5.8 mMol/L (3.4-5.1); Sodium 136 mMol/L (136-145); eGFR 2 See Note
[2024-10-17] MEDS: DEXTROSE 10%-WATER 1000 ML 1,000 ML 50 ML IV (18:50)
[2024-10-17 19:02] LABS: Phosphorous 22.6 mg/dL (2.4-5.1)
[2024-10-17 19:03] LABS: Carbon Dioxide < 10.0 mMol/L (20.0-31.0)
[2024-10-17 19:04] LABS: Creatinine (Component) 16.7 mg/dL (0.6-1.3)
[2024-10-17] MEDS: PIPER/TAZO 3.375 GM PREMIX 3.375 GM/50 ML BAG IV (19:23)
[2024-10-17] MEDS: VASOPRESSIN IN NS IVPB 20 UNIT/100 ML BAG 9 UNIT IV (20:36)
[2024-10-17] MEDS: Norepinephrine/D5W 8mg/250ml 8 MG/250 ML BAG 87.77 MG IV (20:38)
[2024-10-17] MEDS: HYDROCORTISONE SOD SUCC INJ 100 MG VIAL IV (20:41)
[2024-10-17] MEDS: PANTOPRAZOLE INJ 40 MG VIAL IVP (20:41)
[2024-10-17 21:17] LABS: Reflex Lactate? Y
[2024-10-17] MEDS: INSULIN LISPRO (AdmeLOG) 1 UNIT/0.01 ML UNIT SC (21:39)
[2024-10-17 21:58] LABS: Base Excess -23 (-3-3); HCO3 6 mEq/L (20-26); Inspired Oxygen, FIO2 60 %; O2 Saturation 98 % (91-98); PCO2 22 mmHg (32.0-48.0); PO2 119 mmHg (83-108)
[2024-10-17 22:02] LABS: Allen Test Not Performed; Puncture Site Right Femoral; pH, Arterial 7.04 (7.35-7.45)
[2024-10-17 22:14] LABS: Beta Hydroxybutyrate 6.1 mmol/L (<0.6)
[2024-10-17] MEDS: HEPARIN SOD INJ 5000 UNIT/ML VIAL SC (22:28)
[2024-10-17 22:43] LABS: Albumin, Serum 3.6 gm/dL (3.5-5.0); Anion Gap 40 (7-16); BUN/Creatinine Ratio 6 Ratio (12-20); Blood Urea Nitrogen 63 mg/dL (9-23); Calcium 8.1 mg/dL (8.3-10.6); Calcium (Corrected) 8.4 mg/dL (8.5-10.1); Chloride 87 mMol/L (98-107); Estimated Creatinine Clearance 7.5 mL/min (>60); Glucose 289 mg/dL (74-106); Osmolality,Calculated 302 (275-295); Potassium 4.6 mMol/L (3.4-5.1); Sodium 137 mMol/L (136-145); eGFR 4 See Note
[2024-10-17 22:46] LABS: Troponin I 0.106 ng/mL (0.0-0.045)
[2024-10-17 22:47] LABS: Carbon Dioxide < 10.0 mMol/L (20.0-31.0)
[2024-10-17 22:48] LABS: Creatinine (Component) 10.9 mg/dL (0.6-1.3)
[2024-10-17] MEDS: Norepinephrine/D5W 8mg/250ml 8 MG/250 ML BAG 83.688 MG IV (23:45)
[2024-10-17 23:56] LABS: Phosphorous 11.5 mg/dL (2.4-5.1)
[2024-10-18] VITALS (114 sets, daily range): BP systolic 85–151; BP diastolic 49–96; PULSE 70–118; RESP 12–42; TEMP 36.1–36.6; O2SAT 88–100; BMI 42.7; BMI 42.5
[2024-10-18] MEDS: INSULIN LISPRO (AdmeLOG) 1 UNIT/0.01 ML UNIT SC ×3 (00:20→06:00)
[2024-10-18 01:04] LABS: Reflex Lactate? Y
[2024-10-18] MEDS: DEXTROSE 5%-LACTATED RINGERS 1,000 ML 200 ML IV (01:26)
[2024-10-18] MEDS: RINGERS LACTATED 1000 ML 1,000 ML 999 ML IV ×3 (01:30→16:19)
[2024-10-18] MEDS: HYDROCORTISONE SOD SUCC INJ 100 MG VIAL 50 MG IV ×5 (02:09→23:53)
[2024-10-18 02:16] LABS: Beta Hydroxybutyrate 6.1 mmol/L (<0.6)
[2024-10-18 02:32] LABS: Base Excess -17 (-3-3); HCO3 9 mEq/L (20-26); Inspired Oxygen, FIO2 45 %; O2 Saturation 97 % (91-98); PCO2 25 mmHg (32.0-48.0); PO2 87 mmHg (83-108)
[2024-10-18 02:42] LABS: Allen Test Performed/OK; Puncture Site Arterial Line; pH, Arterial 7.19 (7.35-7.45)
[2024-10-18] MEDS: Norepinephrine/D5W 8mg/250ml 8 MG/250 ML BAG 59.194 MG IV (03:18)
[2024-10-18 03:37] LABS: Albumin, Serum 3.5 gm/dL (3.5-5.0); Anion Gap 34 (7-16); BUN/Creatinine Ratio 5 Ratio (12-20); Blood Urea Nitrogen 40 mg/dL (9-23); Calcium 7.8 mg/dL (8.3-10.6); Calcium (Corrected) 8.2 mg/dL (8.5-10.1); Chloride 88 mMol/L (98-107); Creatinine (Component) 7.9 mg/dL (0.6-1.3); Estimated Creatinine Clearance 10.4 mL/min (>60); Glucose 357 mg/dL (74-106); Osmolality,Calculated 288 (275-295); Phosphorous 6.9 mg/dL (2.4-5.1); Potassium 4.5 mMol/L (3.4-5.1); Sodium 132 mMol/L (136-145); eGFR 6 See Note
[2024-10-18 04:09] LABS: Carbon Dioxide < 10.0 mMol/L (20.0-31.0)
[2024-10-18 05:08] LABS: Reflex Lactate? Y
[2024-10-18] MEDS: SODIUM CHLORIDE 0.9% 1000 ML 1,000 ML 999 ML IV (05:12)
[2024-10-18] MEDS: Sodium Bicarb 8.4% 50ml Vial* 88.23 MEQ in DEXTROSE 5%-WATER 500 ML 100 MEQ IV (05:13)
[2024-10-18] MEDS: HEPARIN SOD INJ 5000 UNIT/ML VIAL SC ×3 (05:53→21:12)
[2024-10-18] MEDS: VASOPRESSIN IN NS IVPB 20 UNIT/100 ML BAG 9 UNIT IV (06:00)
--- NOTE | 2024-10-18 06:00 | XR_ITS ---
Examination: AP chest single view Technique one AP portable semiupright chest single view Date and time: October 18, 2024 0842 hours Comparison October 17, 2024 INDICATIONS: Hypoxic respiratory failure FINDINGS: Mild enlargement cardiac contour Moderate vascular congestion Atelectasis versus pneumonia left base Endotracheal tube tip 5 cm above junior Right internal jugular dialysis catheter tip SVC satisfactory position. Orogastric tube in the stomach satisfactory position IMPRESSION: Moderate vascular congestion Mild pneumonia left base Endotracheal tube tip 5 cm above junior
[2024-10-18] MEDS: DEXMEDETOMIDINE 400 MCG IVPB 400 MCG/100 ML BAG 5.443 MCG IV (06:17)
[2024-10-18] MEDS: MIDAZOLAM INJ 1 MG/ML VIAL 2 ML 2 MG IVP (06:28)
[2024-10-18 06:31] LABS: Base Excess -5 (-3-3); HCO3 18 mEq/L (20-26); Inspired Oxygen, FIO2 45 %; O2 Saturation 97 % (91-98); PCO2 26 mmHg (32.0-48.0); PO2 69 mmHg (83-108); pH, Arterial 7.44 (7.35-7.45)
[2024-10-18 06:33] LABS: Allen Test Performed/OK; Puncture Site Right Femoral
[2024-10-18 06:44] LABS: Lactate (Lactic Acid) 5.5 mMol/L (0.4-2.0)
[2024-10-18 06:55] LABS: Basophils % (Auto) 0 % (0-2.5); Eosinophils % (Auto) 0 % (0-10); Hematocrit 36.8 % (36.0-46.0); Hemoglobin 12.3 g/dL (12.0-16.0); Immature Granulocytes % (Auto) 0 % (0-0); Immature Granulocytes Auto 0.05 Thou/mm3 (0.00-0.00); Lymphocytes # (Auto) 0.8 Thou/mm3 (1.0-4.8); Lymphocytes % (Auto) 7 % (10-50); Mean Corpuscular HGB Conc 33.4 g/dl (31.0-37.0); Mean Corpuscular Hemoglobin 28.5 pg (25.0-35.0); Mean Corpuscular Volume 85 fL (80-100); Monocytes # (Auto) 0.6 Thou/mm3 (0.0-0.8); Monocytes % (Auto) 5 % (0-12); Neutrophils # (Auto) 9.8 Thou/mm3 (1.8-7.7); Neutrophils % (Auto) 88 % (37-80); Nucleated Red Blood Cell % 0 /100 WBC (0); Platelet Count 223 Thou/mm3 (140-440); RDW Standard Deviation 45.2 fL (36.4-46.3); Red Blood Count 4.32 Miln/mm3 (4.00-5.20); White Blood Count 11.2 Thou/mm3 (3.6-11.0)
[2024-10-18] MEDS: INSULIN REG 100 UNITS/100 ML 100 UNIT in PRE-MIXED 1 BAG 10.886 UNIT IV (07:52)
--- NOTE | 2024-10-18 08:02 | PC.NURSE ---
Per MD Reeves insulin drip started with no fluids at this time.
[2024-10-18] MEDS: LORazepam 2 MG/ML VIAL IVP (08:27)
[2024-10-18 08:44] LABS: Alanine Aminotransferase 65 U/L (10-49); Albumin, Serum 3.4 gm/dL (3.5-5.0); Albumin/Globulin Ratio 1.7 (1.2-2.2); Alkaline Phosphatase 70 U/L (46-116); Anion Gap 25 (7-16); Aspartate Amino Transferase 66 U/L (0-34); BUN/Creatinine Ratio 6 Ratio (12-20); Bilirubin,Total 0.6 mg/dL (0.3-1.2); Blood Urea Nitrogen 29 mg/dL (9-23); Calcium (Corrected) 8.5 mg/dL (8.5-10.1); Carbon Dioxide 16.9 mMol/L (20.0-31.0); Cardiac Risk Estimate 10.2 RATIO (3.7-5.6); Chloride 92 mMol/L (98-107); Cholesterol 214 mg/dL (132-200); Creatinine (Component) 5.1 mg/dL (0.6-1.3); Estimated Creatinine Clearance 16.4 mL/min (>60); Glucose 294 mg/dL (74-106); HDL Cholesterol 21 mg/dL (40-60); LDL Cholesterol,Calculated 134 mg/dL (0-130); Magnesium 1.3 mg/dL (1.6-2.6); Osmolality,Calculated 285 (275-295); Phosphorous 2.4 mg/dL (2.4-5.1); Potassium 4.5 mMol/L (3.4-5.1); Sodium 134 mMol/L (136-145); Total Protein 5.4 gm/dL (5.7-8.2); Triglycerides 296 mg/dL (30-150); eGFR 10 See Note
--- NOTE | 2024-10-18 08:45 | PD.INTPROC ---
Procedures Procedure Date / Time 10/17/24 1630 Arterial Line Size (Gauge): 20 Central Line Placement Right IJ: Indication(s): poor, or inadequate peripheral venous access Informed consent obtained: obtained from surrogate decision maker Time out done, and the following verified: correct patient, side and site, procedure and patient position Patient placed on monitor/pulse ox: Yes Hand Hygiene: scrub and alcohol-based hand rub Max Sterile Barrier Techniques used: cap, mask, sterile gown, sterile gloves and sterile full body drape Central line prep: Chlorhexidine scrub and sterile drapes applied Ultrasound used for placement: Yes Sterile Technique if Ultrasound used, including sterile gel: yes Central line lumen inserted: triple (TriFlow for HD) Post procedure: sutured in place, good blood return, all ports aspirated, flushed, capped and sterile dressing applied Post procedure x-ray: tip of catheter in good position and no pneumothorax seen Patient tolerated procedure: well and no complications EBL(ml): 20 Complications: none
[2024-10-18 08:59] LABS: Troponin I 0.096 ng/mL (0.0-0.045)
[2024-10-18 09:22] LABS: Reflex Lactate? Y
[2024-10-18] MEDS: PIPER/TAZO 3.375 GM PREMIX 3.375 GM/50 ML BAG IV ×2 (09:32→21:12)
[2024-10-18] MEDS: PANTOPRAZOLE INJ 40 MG VIAL IVP ×2 (09:32→21:12)
[2024-10-18 09:35] LABS: B-Type Natriuretic Peptide 235 pg/mL (0-100)
[2024-10-18] MEDS: HEPARIN SOD INJ 1000 UNIT/ML VIAL 10 ML INDWELLCAT (09:41)
[2024-10-18] MEDS: HEPARIN SOD INJ 1000 UNIT/ML VIAL 10 ML 200 UNIT INDWELLCAT ×10 (10:00→19:06)
[2024-10-18] MEDS: DEXTROSE 5%-LACTATED RINGERS 1,000 ML 250 ML IV (10:25)
[2024-10-18] MEDS: fentaNYL 2,500 MCG/250 ML BAG 2,500 MCG/250 ML BAG 27.5 MCG IV ×2 (10:28→20:29)
--- NOTE | 2024-10-18 10:38 | PD.RESPRO ---
Documentation for date of: 10/18/24 Subjective Subjective Interval history: Patient is a 49-year-old female past medical history of diabetes and hypertension, hyperlipidemia who is coming to the ED due to progressive weakness and confusion with decreased appetite for the last 2 weeks. Patient was accompanied by son and her who contributed to the story as patient was confused and lethargic with shortness of breath and a GCS of 10 at bedside. Son states that she was recently diagnosed with diabetes and obesity after which she was started on weight loss medication set down 2.5 as well as Synjardy 12.5 and 1000 mg. Son states that patient has had decreased appetite with abdominal pain and nausea and inability to eat with frequent vomiting of the little bit of water she tried to drink progressively over the last 2 weeks when she started the medication. She states that despite the inability to eat she continued to take the medications including the Synjardy. They decided to bring the patient today as she was confused and hard to arouse at home. In the ED patient had a blood pressure of 103/51, pulse 97, RR 30, temperature 97.8, O2 sat 96 on 7 L nasal cannula initially. Due to patient's impending respiratory failure she was intubated with a tidal volume of 450, PEEP of 5 and a respiratory rate of 32. CBC showed a WBC of 10.1, hemoglobin of 14.4 and a platelet count of 328. ABG initially was 6.84 with a CO2 of 20 which barely improved to pH was 6.85 despite 100 mEq amp push of bicarb. At that time an additional 50 mEq of bicarb were pushed and started on a bicarb drip. CMP showed a sodium of 133 with a potassium of 7.4 chloride of 82 and a carbon dioxide less than 10, Anion gap is 41 with a BUN of 97 and a creatinine of 19.5, A1c was 9.1 and a lactic acid of 17. Lipase was 58 and beta-hydroxybutyrate was 5.3 with a Pro-Sunny of 0.99. UA was positive for UTI with leukocyte esterase 20 WBCs and 5 RBCs. Patient received a total of 5 L boluses of LR in the ED 150 pushes of bicarb. She also got albuterol 10 mg inhaled as well as insulin 5 units and calcium gluconate 1 g in the ED for the potassium. Rocuronium and etomidate was used to intubate the patient. Levophed was started as well as fentanyl. Patient will be managed in the ICU for severe acidemia likely secondary to metformin intoxication in the setting of renal failure from severe dehydration. 10/18/2024: Overnight, patient was awake and agitated on fentanyl and was given 2 of versed and started on precedex. She was requiring 0.41 of levophed last night and was started on vasopressor and hydrocorticosone Q6H. She had 6 hours of TABLO overnight with 2 hour TABLO downtime. She had significant urine output of 3.5L, with 1.7L in the last 12 hours. Suspect patient in polyuric phase of ATN. This morning, ABG shows significant improvement in the acidosis. Lactic acid improved to 5.5, and BHB is elevated at 6.8. Since lactic acidosis from metformin toxicity improved, will manage DKA with insulin drip. We will continue IV fluids to keep patient euvolemic. Her pressor requirements have improved down to 0.13 this morning. Regarding sedation, will decrease fentanyl and go up on precedex if need to. Exam Vital Signs Temp Pulse Resp BP Pulse Ox O2 Del Method O2 Flow Rate 97.0 F 94 35 H 118/64 95 Mechanical Ventilation 7 10/18/24 08:00 10/18/24 10:30 10/18/24 02:45 10/18/24 10:30 10/18/24 09:45 10/17/24 17:25 10/17/24 15:23 FiO2 45 10/18/24 06:15 Narrative Exam Constitutional: Obese female HEENT: NCAT. L pterygium noted. Mucous membranes moist. ET/OG tube noted. Respiratory: CTAB bilaterally. Cardiac: RRR. Abdomen: Soft, non-distended, non-tender. MSK: 2+ bilateral LE edema Skin: Warm, dry, intact. Small scattered petechiae noted L neck/upper chest. Neuro: Grimaces to pain. Lines: ET/OG, R IJ Tri Flow, R femoral A-line, Vásquez Objective Labs 10/20/24 04:45 10/20/24 04:45 Labs: Laboratory Results - last 24 hr 10/17/24 10/17/24 10/17/24 14:05 14:15 14:51 WBC 10.1 RBC 5.07 Hgb 14.4 Hct 46.9 H MCV 93 MCH 28.4 MCHC 30.7 L RDW Std Deviation 51.8 H Plt Count 328 Neut % (Auto) 74 Lymph % (Auto) 17 [place] % (Auto) 8 Eos % (Auto) 0 Baso % (Auto) 0 Neut # (Auto) 7.5 Lymph # (Auto) 1.7 [place] # (Auto) 0.8 Eos # (Auto) 0.0 Baso # (Auto) 0.0 Immature Gran # (Auto) 0.09 H Absolute Nucleated RBC 0.00 Immature Gran % 1 H Nucleated RBC % 0 PT 11.5 INR 1.1 APTT 37.2 H Puncture Site Left Radial ABG pH 6.84 L* ABG pCO2 20 L ABG pO2 76 L ABG HCO3 3 L* ABG O2 Saturation 86 L ABG Base Excess -30 L Oxygen Liter Flow FiO2 21 Sodium 133 L Potassium 7.4 H* Chloride 82 L Carbon Dioxide < 10.0 L* Anion Gap 41 H BUN 97 H Creatinine 19.5 H* Estim Creat Clear Calc 4.2 L eGFR 2 L* BUN/Creatinine Ratio 5 L Glucose [address] Glu mg/dL 214 H Hemoglobin A1c 9.1 H Calculated Osmolality 295 Lactic Acid 17.0 H* Calcium 9.4 Corrected Calcium 9.4 Phosphorus Magnesium 3.2 H Total Bilirubin 0.3 AST 44 H ALT 53 H Alkaline Phosphatase 76 Lactate Dehydrogenase 257 H Total Creatine Kinase 137 Troponin I 0.049 H* B-Natriuretic Peptide 503 H* Total Protein 7.5 Albumin 4.5 Globulin 3.0 Albumin/Globulin Ratio 1.5 Triglycerides Cholesterol LDL Cholesterol, Calc HDL Cholesterol Cholesterol/HDL Ratio Lipase 58 H Beta-Hydroxybutyrate/Acetoacetate 5.3 H Procalcitonin 0.99 H Ur Collection Type Clean Catch Urine Color Yellow Urine Clarity Turbid A Urine pH 5.5 Ur Specific [place] 1.031 Urine Protein 3+ A Urine Glucose (UA) 1+ A Urine Ketones Trace Urine Blood 1+ A Urine Nitrite Negative Urine Bilirubin Negative Urine Urobilinogen (Auto) Negative Ur Leukocyte Esterase Positive Urine RBC 5 H Urine WBC 20 H Ur Squamous Epith Cells 7 H Urine Bacteria None Hyaline Casts < 1 Urine Opiates Screen Negative Urine Fentanyl Screen Negative Ur Barbiturates Screen Negative U Amphetamin/Meth Scrn Negative U Benzodiazepines Scrn Negative U Cocaine Metab Screen Negative U Marijuana (THC) Screen Negative 10/17/24 10/17/24 10/17/24 15:25 16:14 18:11 WBC RBC Hgb Hct MCV MCH MCHC RDW Std Deviation Plt Count Neut % (Auto) Lymph % (Auto) [place] % (Auto) Eos % (Auto) Baso % (Auto) Neut # (Auto) Lymph # (Auto) [place] # (Auto) Eos # (Auto) Baso # (Auto) Immature Gran # (Auto) Absolute Nucleated RBC Immature Gran % Nucleated RBC % PT INR APTT Puncture Site Right Radial Left Radial Arterial Line ABG pH 6.86 L* 6.76 L* D 6.83 L* ABG pCO2 23 L 35 D 24 L D ABG pO2 96 D 261 H D 217 H D ABG HCO3 4 L* 5 L* 4 L* ABG O2 Saturation 93 99 H 99 H ABG Base Excess -29 L -30 L -29 L Oxygen Liter Flow 8 FiO2 80 Sodium 136 Potassium 5.8 H D Chloride 85 L Carbon Dioxide < 10.0 L* Anion Gap 41 H BUN 84 H Creatinine 16.7 H* D Estim Creat Clear Calc 4.9 L eGFR 2 L* BUN/Creatinine Ratio 5 L Glucose [address] Glu mg/dL Hemoglobin A1c Calculated Osmolality 303 H Lactic Acid 21.0 H* Calcium 9.1 Corrected Calcium 9.5 Phosphorus 22.6 H Magnesium Total Bilirubin AST ALT Alkaline Phosphatase Lactate Dehydrogenase Total Creatine Kinase Troponin I B-Natriuretic Peptide Total Protein Albumin 3.5 D Globulin Albumin/Globulin Ratio Triglycerides Cholesterol LDL Cholesterol, Calc HDL Cholesterol Cholesterol/HDL Ratio Lipase Beta-Hydroxybutyrate/Acetoacetate 5.8 H Procalcitonin Ur Collection Type Urine Color Urine Clarity Urine pH Ur Specific [place] Urine Protein Urine Glucose (UA) Urine Ketones Urine Blood Urine Nitrite Urine Bilirubin Urine Urobilinogen (Auto) Ur Leukocyte Esterase Urine RBC Urine WBC Ur Squamous Epith Cells Urine Bacteria Hyaline Casts Urine Opiates Screen Urine Fentanyl Screen Ur Barbiturates Screen U Amphetamin/Meth Scrn U Benzodiazepines Scrn U Cocaine Metab Screen U Marijuana (THC) Screen 10/17/24 10/17/24 10/17/24 21:00 21:48 21:50 WBC RBC Hgb Hct MCV MCH MCHC RDW Std Deviation Plt Count Neut % (Auto) Lymph % (Auto) [place] % (Auto) Eos % (Auto) Baso % (Auto) Neut # (Auto) Lymph # (Auto) [place] # (Auto) Eos # (Auto) Baso # (Auto) Immature Gran # (Auto) Absolute Nucleated RBC Immature Gran % Nucleated RBC % PT INR APTT Puncture Site Right Femoral ABG pH 7.04 L* D ABG pCO2 22 L ABG pO2 119 H D ABG HCO3 6 L* ABG O2 Saturation 98 ABG Base Excess -23 L Oxygen Liter Flow FiO2 60 Sodium 137 Potassium 4.6 D Chloride 87 L Carbon Dioxide < 10.0 L* Anion Gap 40 H BUN 63 H Creatinine 10.9 H* D Estim Creat Clear Calc 7.5 L eGFR 4 L* BUN/Creatinine Ratio 6 L Glucose [address] Glu mg/dL Hemoglobin A1c Calculated Osmolality 302 H Lactic Acid Calcium 8.1 L Corrected Calcium 8.4 L Phosphorus 11.5 H Magnesium Total Bilirubin AST ALT Alkaline Phosphatase Lactate Dehydrogenase Total Creatine Kinase Troponin I 0.106 H* B-Natriuretic Peptide Total Protein Albumin 3.6 Globulin Albumin/Globulin Ratio Triglycerides Cholesterol LDL Cholesterol, Calc HDL Cholesterol Cholesterol/HDL Ratio Lipase Beta-Hydroxybutyrate/Acetoacetate 6.1 H Procalcitonin Ur Collection Type Urine Color Urine Clarity Urine pH Ur Specific [place] Urine Protein Urine Glucose (UA) Urine Ketones Urine Blood Urine Nitrite Urine Bilirubin Urine Urobilinogen (Auto) Ur Leukocyte Esterase Urine RBC Urine WBC Ur Squamous Epith Cells Urine Bacteria Hyaline Casts Urine Opiates Screen Urine Fentanyl Screen Ur Barbiturates Screen U Amphetamin/Meth Scrn U Benzodiazepines Scrn U Cocaine Metab Screen U Marijuana (THC) Screen 10/17/24 10/18/24 10/18/24 21:58 02:01 02:25 WBC RBC Hgb Hct MCV MCH MCHC RDW Std Deviation Plt Count Neut % (Auto) Lymph % (Auto) [place] % (Auto) Eos % (Auto) Baso % (Auto) Neut # (Auto) Lymph # (Auto) [place] # (Auto) Eos # (Auto) Baso # (Auto) Immature Gran # (Auto) Absolute Nucleated RBC Immature Gran % Nucleated RBC % PT INR APTT Puncture Site Arterial Line ABG pH 7.19 L* D ABG pCO2 25 L ABG pO2 87 D ABG HCO3 9 L* ABG O2 Saturation 97 ABG Base Excess -17 L Oxygen Liter Flow FiO2 45 Sodium 132 L Potassium 4.5 Chloride 88 L Carbon Dioxide < 10.0 L* Anion Gap 34 H BUN 40 H Creatinine 7.9 H* D Estim Creat Clear Calc 10.4 L eGFR 6 L* BUN/Creatinine Ratio 5 L Glucose [address] Glu mg/dL Hemoglobin A1c Calculated Osmolality 288 Lactic Acid 21.0 H* 15.0 H* Calcium 7.8 L Corrected Calcium 8.2 L Phosphorus 6.9 H Magnesium Total Bilirubin AST ALT Alkaline Phosphatase Lactate Dehydrogenase Total Creatine Kinase Troponin I B-Natriuretic Peptide Total Protein Albumin 3.5 Globulin Albumin/Globulin Ratio Triglycerides Cholesterol LDL Cholesterol, Calc HDL Cholesterol Cholesterol/HDL Ratio Lipase Beta-Hydroxybutyrate/Acetoacetate 6.1 H Procalcitonin Ur Collection Type Urine Color Urine Clarity Urine pH Ur Specific [place] Urine Protein Urine Glucose (UA) Urine Ketones Urine Blood Urine Nitrite Urine Bilirubin Urine Urobilinogen (Auto) Ur Leukocyte Esterase Urine RBC Urine WBC Ur Squamous Epith Cells Urine Bacteria Hyaline Casts Urine Opiates Screen Urine Fentanyl Screen Ur Barbiturates Screen U Amphetamin/Meth Scrn U Benzodiazepines Scrn U Cocaine Metab Screen U Marijuana (THC) Screen 10/18/24 10/18/24 06:09 06:11 WBC 11.2 H RBC 4.32 Hgb 12.3 D Hct 36.8 D MCV 85 MCH 28.5 MCHC 33.4 RDW Std Deviation 45.2 Plt Count 223 D Neut % (Auto) 88 H Lymph % (Auto) 7 L [place] % (Auto) 5 Eos % (Auto) 0 Baso % (Auto) 0 Neut # (Auto) 9.8 H Lymph # (Auto) 0.8 L [place] # (Auto) 0.6 Eos # (Auto) 0.0 Baso # (Auto) 0.0 Immature Gran # (Auto) 0.05 H Absolute Nucleated RBC 0.00 Immature Gran % 0 Nucleated RBC % 0 PT INR APTT Puncture Site Right Femoral ABG pH 7.44 D ABG pCO2 26 L ABG pO2 69 L ABG HCO3 18 L ABG O2 Saturation 97 ABG Base Excess -5 L Oxygen Liter Flow FiO2 45 Sodium 134 L Potassium 4.5 Chloride 92 L Carbon Dioxide 16.9 L Anion Gap 25 H BUN 29 H Creatinine 5.1 H* D Estim Creat Clear Calc 16.4 L eGFR 10 L* BUN/Creatinine Ratio 6 L Glucose [address] Glu mg/dL Hemoglobin A1c Calculated Osmolality 285 Lactic Acid 5.5 H* Calcium 8.0 L Corrected Calcium 8.5 Phosphorus 2.4 Magnesium 1.3 L Total Bilirubin 0.6 AST 66 H ALT 65 H Alkaline Phosphatase 70 Lactate Dehydrogenase Total Creatine Kinase Troponin I 0.096 H* B-Natriuretic Peptide 235 H Total Protein 5.4 L Albumin 3.4 L Globulin 2.0 L Albumin/Globulin Ratio 1.7 Triglycerides 296 H Cholesterol 214 H LDL Cholesterol, Calc 134 H HDL Cholesterol 21 L Cholesterol/HDL Ratio 10.2 H Lipase Beta-Hydroxybutyrate/Acetoacetate Procalcitonin Ur Collection Type Urine Color Urine Clarity Urine pH Ur Specific [place] Urine Protein Urine Glucose (UA) Urine Ketones Urine Blood Urine Nitrite Urine Bilirubin Urine Urobilinogen (Auto) Ur Leukocyte Esterase Urine RBC Urine WBC Ur Squamous Epith Cells Urine Bacteria Hyaline Casts Urine Opiates Screen Urine Fentanyl Screen Ur Barbiturates Screen U Amphetamin/Meth Scrn U Benzodiazepines Scrn U Cocaine Metab Screen U Marijuana (THC) Screen ABG Interpretation ABG results: 10/17/24 10/17/24 10/17/24 14:15 15:25 16:14 ABG pH 6.84 L* 6.86 L* 6.76 L* D ABG pCO2 20 L 23 L 35 D ABG pO2 76 L 96 D 261 H D ABG HCO3 3 L* 4 L* 5 L* ABG O2 Saturation 86 L 93 99 H ABG Base Excess -30 L -29 L -30 L 10/17/24 10/17/24 10/18/24 18:11 21:48 02:25 ABG pH 6.83 L* 7.04 L* D 7.19 L* D ABG pCO2 24 L D 22 L 25 L ABG pO2 217 H D 119 H D 87 D ABG HCO3 4 L* 6 L* 9 L* ABG O2 Saturation 99 H 98 97 ABG Base Excess -29 L -23 L -17 L 10/18/24 06:09 ABG pH 7.44 D ABG pCO2 26 L ABG pO2 69 L ABG HCO3 18 L ABG O2 Saturation 97 ABG Base Excess -5 L Quality Measures Quality Measures VTE prophylaxis Assessment & Plan Assessment Current Active Medications: Generic Name Dose Route Start Last Admin Trade Name Freq PRN Reason Stop Dose Admin Dextrose 25 ml 10/17/24 18:37 Dextrose 50%-Water Inj 50 Ml Syringe IV 11/16/24 18:36 Q15MIN PRN BG 50-70 responsive npo pt Dextrose 50 ml 10/17/24 18:37 Dextrose 50%-Water Inj 50 Ml Syringe IV 11/16/24 18:36 Q15MIN PRN BG <50 OR BG <70 & pt unresponsive Glucagon 1 mg 10/17/24 18:37 Glucagon Inj 1 Mg Vial IM Q15MIN PRN BG <70, and no IV access Heparin Sodium (Porcine) 5,000 unit 10/17/24 22:00 10/18/24 05:53 Heparin Sod Inj 5000 Unit/Ml Vial SC 10/31/24 21:59 5,000 unit Q8HR SOHA Administration Heparin Sodium (Porcine) 200 unit 10/18/24 09:36 10/18/24 10:00 Heparin Sod Inj 1000 Unit/Ml Vial 10 Ml INDWELLCAT 11/01/24 09:44 200 unit Q1H PRN Administration DIALYSIS Hydrocortisone Sodium Succinate 50 mg 10/18/24 02:00 10/18/24 05:54 Hydrocortisone Sod Succ Inj 100 Mg Vial IV 11/17/24 01:59 50 mg Q6HR SOHA Administration Fentanyl Citrate 2,500 mcg in 250 mls @ 2.5 mls/hr 10/17/24 15:19 10/18/24 10:00 Sublimaze Inj 2,500 Mcg/250 Ml Bag IV 10/22/24 15:18 275 mcg/hr .Q24H PRN 27.5 mls/hr PER PROTOCOL Titration Protocol 25 MCG/HR Norepinephrine/Dextrose 8 mg in 250 mls @ 10.206 mls/hr 10/17/24 15:50 10/18/24 06:17 Levophed In D5w 8mg/250ml IV 11/16/24 15:49 0.13 mcg/kg/min .Q24H PRN 26.535 mls/hr PER PROTOCOL Titration Protocol 0.05 MCG/KG/MIN Piperacillin/Tazobactam/Dextrose 3.375 gm in 50 mls @ 12.5 mls/hr 10/18/24 09:00 10/18/24 09:32 Zosyn IV 10/25/24 08:59 12.5 mls/hr Q12HR SOHA Administration Protocol Dextrose 1,000 mls @ 50 mls/hr 10/17/24 18:36 10/18/24 01:26 D10w 1000 Ml IV 11/16/24 18:35 0 mls/hr .Q20H SOHA Infusion Dexmedetomidine/Sodium Chloride 400 mcg in 100 mls @ 5.443 mls/hr 10/17/24 20:00 10/18/24 08:15 Precedex Ivpb IV 11/16/24 19:59 0.4 mcg/kg/hr .[id number] PRN 10.886 mls/hr Per PROTOCOL Titration Protocol 0.2 MCG/KG/HR Vasopressin/Sodium Chloride 20 unit in 100 mls @ 9 mls/hr 10/17/24 20:40 10/18/24 06:00 Vasostrict/Ns Ivpb IV 11/16/24 20:39 0.03 unit/min .Q11H7M PRN 9 mls/hr PER PROTOCOL Administration Protocol 0.03 UNIT/MIN Potassium Chloride 10 meq in 100 mls @ 100 mls/hr 10/18/24 06:46 Kcl Ivpb IV 11/17/24 06:45 .Q1H PRN IF POTASSIUM LESS THAN 3.3 Magnesium Sulfate 2 gm in 50 mls @ 25 mls/hr 10/18/24 06:46 Magnesium Sulfate Ivpb IV 11/17/24 06:45 .Q2H PRN PER DKA PROTOCOL Insulin Human Regular 100 unit 100 mls @ 10.886 mls/hr 10/18/24 06:46 10/18/24 10:00 / IV Miscellaneous Supplies IV 11/17/24 06:45 0.025 unit/kg/hr .Q9H12M PRN 2.722 mls/hr PER PROTOCOL Titration Protocol 0.1 UNIT/KG/HR Dextrose/Lactated Ringer's 1,000 mls @ 250 mls/hr 10/18/24 06:46 10/18/24 10:25 D5-Lr IV 11/17/24 06:45 250 mls/hr .Q4H PRN Administration PER PROTOCOL Lactated Ringer's 1,000 mls @ 250 mls/hr 10/18/24 06:46 Lactated Ringers IV 10/19/24 06:45 .Q4H PRN PER PROTOCOL Potassium Chloride 20 meq/ 1,010 mls @ 250 mls/hr 10/18/24 06:46 Lactated Ringer's IV 11/17/24 06:45 .Q4H3M PRN K LEVEL 3.3 TO 5.3mM/L Potassium Chloride 40 meq/ 1,020 mls @ 250 mls/hr 10/18/24 06:46 Lactated Ringer's IV 11/17/24 06:45 .Q4H5M PRN K LEVEL < 3.3 mM/L Potassium Chloride 40 meq/ 1,020 mls @ 250 mls/hr 10/18/24 06:46 Dextrose/Lactated Ringer's IV 11/17/24 06:45 .Q4H5M PRN K LEVEL < 3.3mM/L Potassium Chloride 10 meq in 100 mls @ 50 mls/hr 10/18/24 06:46 Kcl Ivpb IV 11/17/24 06:45 PRN PRN K LEVEL 3.3 to 5.3 & BG > 200 Potassium Phosphate 15 mmol in 250 mls @ 62.5 mls/hr 10/18/24 06:46 Pot Phos 15 Mmol In Ns 250 Ml IV 11/17/24 06:45 PRN PRN Phosphate <= 1mg/dL Sodium Phosphate 15 mmol/ 255 mls @ 62.5 mls/hr 10/18/24 06:46 Sodium Chloride IV 11/17/24 06:45 .Q4H5M PRN Phosphate <= 1mg/dL and K> than 5.3 Potassium Chloride 20 meq/ 1,010 mls @ 250 mls/hr 10/18/24 10:18 Dextrose/Lactated Ringer's IV 11/17/24 10:17 .Q4H3M PRN K LEVEL 3.3 TO 5.3 mM/L Lactated Ringer's 500 mls @ 999 mls/hr 10/18/24 10:36 Lactated Ringers IV 10/18/24 11:06 .Q31M ONE Pantoprazole Sodium 40 mg 10/17/24 20:00 10/18/24 09:32 Pantoprazole Inj 40 Mg Vial IVP 11/16/24 19:59 40 mg BID SOHA Administration Sodium Bicarbonate 50 ml 10/18/24 06:46 Sodium Bicarb Inj 8.4% Syr 50 Ml Syringe IV 11/17/24 06:45 PRN PRN For ph <= to 7.0 Sodium Chloride 3 ml 10/17/24 14:41 10/17/24 15:05 Sodium Chloride Rt Gogo 0.9% 3 Ml Nebu INH 11/16/24 14:40 3 ml PRN PRN Administration SOLN Plan 49-year-old female past medical history of diabetes and hypertension, hyperlipidemia admitted to the ICU for further management of her severe acidemia Neuro #Acute metabolic encephalopathy Secondary to severe acidemia, UTI - Decrease fentanyl, increase precedex - Daily SAT CVS #Shock, improving Likely distributive in the setting of severe acidosis and possibly sepsis from infection - Levophed, titrate to MAP > 65 - Vasopressin and hydrocortisone q6H started for refractory shock - Discontinue hydrocortisone if blood cultures negative #Troponinemia 0.049, 0.106 downtrending. EKG did not show any obvious ST segment elevations and patient did not complain of any chest pain on presentation Suspect Type II due to decreased renal clearance Resp #Acute hypoxic respiratory failure Impending respiratory arrest in the setting of severe acidemia as patient struggled to compensate Acidemia improving, anticipate decreasing RR - Follow up ABG GI #Gastritis Likely in the setting of pill induced gastritis as patient was taking medications despite decreased p.o. intake nausea and vomiting Orogastric tube drained dark gastric material - Protonix 40 mg IV twice daily #Elevated LFTs R Factor 3.2 suggesting mixed pattern Lipid panel suggesting hyperlipidemia - Check hepatitis panel - Avoid hepatotoxins - May consider liver ultrasound Renal #KARTHIKEYAN Likely ATN and from prerenal acidemia as well as possible interstitial nephritis - Polyuria, replete losses to maintain euvolemia #High anion gap metabolic acidosis, improving Due to lactic acidosis from metformin toxicity, DKA Patient took synjardy in addition to severe dehydration, poor oral intake and diarrhea - Stop bicarb ggt - CRRT 14 hours today - Renal panel Q4H, ABG Q4H - Insulin ggt for DKA - Replete electrolytes as needed Endocrine #DKA #DM2, A1c 9.1 - Discontinue D10 drip, ISS Q3H - Start insulin ggt per DKA protocol #Hematology No acute problems ID #Septic shock due to UTI - Follow up blood, urine culture - Marlenysyn (10/17- Hospital Maintenance: FEN: NPO DVT PPx: Heparin subcu GI PPx: Protonix 40 IV twice daily IV lines: Right IJ Tri flow, right femoral A-line, peripheral IVs Vásquez: 10/17- Code Status: Full code Dispo: Patient will remain in ICU for further management of her severe acidemia, dka. I have reviewed and discussed the patient's care with my attending, Dr. Reeves, Leah Ralph MD PGY-3
[2024-10-18 10:41] LABS: Base Excess 3 (-3-3); HCO3 25 mEq/L (20-26); Inspired Oxygen, FIO2 45 %; O2 Saturation 96 % (91-98); PCO2 28 mmHg (32.0-48.0); PO2 61 mmHg (83-108); pH, Arterial 7.55 (7.35-7.45)
--- NOTE | 2024-10-18 10:42 | PC.NURSE ---
ordered to start Pt. on DKA protocol fluids. NO D5 LR with 20 K available in [facility] made aware. Per Dr. Leandro Romero to start PT. on D5LR while waiting for pharmacy to provide D5LR with potassium.
--- NOTE | 2024-10-18 10:45 | PC.NURSE ---
Per [facility] acid bath changed to citrisate 4.0 K and 3.5 Ca
[2024-10-18] MEDS: POT CHL ADDITIVE 20 MEQ in DEXTROSE 5%-LACTATED RINGERS 1,000 ML 250 MEQ IV ×3 (10:47→18:32)
[2024-10-18 10:48] LABS: Lactate (Lactic Acid) 2.6 mMol/L (0.4-2.0)
[2024-10-18 10:48] LABS: Allen Test Performed/OK; Puncture Site Right Femoral
[2024-10-18] MEDS: Norepinephrine/D5W 8mg/250ml 8 MG/250 ML BAG 22.453 MG IV (10:55)
--- NOTE | 2024-10-18 11:00 | ESPR_ITS ---
Documentation for date of: 10/18/24 Subjective Subjective Interval history: This is a 49-year-old female who was brought to the ER yesterday for altered mental status. She was newly diagnosed with diabetes and started on multiple medications for diabetes 2 weeks ago. Apparently she had been nauseated and feeling very unwell since starting medications. She has had a very poor p.o. intake. She has however continued with her medications which included metformin and Mounjaro. She was brought to the ER because she was difficult to arouse at home. On arrival she was found to be profoundly acidotic with a pH of 6.8. She was altered and tachypneic with with an anion gap of 40 and a beta hydroxy of 5. The ICU was consulted for further evaluation. The patient was felt to have developed respiratory failure secondary to her severe metabolic acidosis and was intubated in ER. It was felt that her severe acidosis was due to metformin toxicity requiring dialysis. A TriFlow was placed by myself in the ER prior to pt arriving in the ICU. Overnight pt was started on CRRT however there was a malfunction and pt did not receive entire alotted time. She has started to dump >400cc/hr of urine which is being replaced, she is on fent/precedex for sedation. Her vent has been adjusted to maintain an elevated Ve to compensate for her metabolic acidosis while awaiting CRRT Critical Care Note Critical care time (min.): 75 Exam Vital Signs Temp Pulse Resp BP Pulse Ox O2 Del Method O2 Flow Rate 97.0 F 95 35 H 120/65 95 Mechanical Ventilation 7 10/18/24 08:00 10/18/24 10:55 10/18/24 02:45 10/18/24 10:55 10/18/24 10:31 10/17/24 17:25 10/17/24 15:23 FiO2 45 10/18/24 10:31 Narrative Exam Gen- intubated, sedated, obese, HEENT- NC/AT, mucosa hydrated, sclera anicteric, ETT/OGT in place Chest- LCTAB, HRRR, no increase in WOB Abd- obese, s/nt/bs+ Ext- no edema, pulses palp, no clubbing, no mottling, moves all 4 Vent AC VC Drips levo vaso fent precedex insulin Physical Exam Completion Physical Exam Complete?: Yes Objective - Technical Writer And Editor Labs 10/20/24 04:45 10/20/24 04:45 Labs: Laboratory Results - last 24 hr 10/17/24 10/17/24 10/17/24 14:05 14:15 14:51 WBC 10.1 RBC 5.07 Hgb 14.4 Hct 46.9 H MCV 93 MCH 28.4 MCHC 30.7 L RDW Std Deviation 51.8 H Plt Count 328 Neut % (Auto) 74 Lymph % (Auto) 17 Kinney % (Auto) 8 Eos % (Auto) 0 Baso % (Auto) 0 Neut # (Auto) 7.5 Lymph # (Auto) 1.7 Kinney # (Auto) 0.8 Eos # (Auto) 0.0 Baso # (Auto) 0.0 Immature Gran # (Auto) 0.09 H Absolute Nucleated RBC 0.00 Immature Gran % 1 H Nucleated RBC % 0 PT 11.5 INR 1.1 APTT 37.2 H Puncture Site Left Radial ABG pH 6.84 L* ABG pCO2 20 L ABG pO2 76 L ABG HCO3 3 L* ABG O2 Saturation 86 L ABG Base Excess -30 L Oxygen Liter Flow FiO2 21 Sodium 133 L Potassium 7.4 H* Chloride 82 L Carbon Dioxide < 10.0 L* Anion Gap 41 H BUN 97 H Creatinine 19.5 H* Estim Creat Clear Calc 4.2 L eGFR 2 L* BUN/Creatinine Ratio 5 L Glucose [address] Glu mg/dL 214 H Hemoglobin A1c 9.1 H Calculated Osmolality 295 Lactic Acid 17.0 H* Calcium 9.4 Corrected Calcium 9.4 Phosphorus Magnesium 3.2 H Total Bilirubin 0.3 AST 44 H ALT 53 H Alkaline Phosphatase 76 Lactate Dehydrogenase 257 H Total Creatine Kinase 137 Troponin I 0.049 H* B-Natriuretic Peptide 503 H* Total Protein 7.5 Albumin 4.5 Globulin 3.0 Albumin/Globulin Ratio 1.5 Triglycerides Cholesterol LDL Cholesterol, Calc HDL Cholesterol Cholesterol/HDL Ratio Lipase 58 H Beta-Hydroxybutyrate/Acetoacetate 5.3 H Procalcitonin 0.99 H Ur Collection Type Clean Catch Urine Color Yellow Urine Clarity Turbid A Urine pH 5.5 Ur Specific Sprague 1.031 Urine Protein 3+ A Urine Glucose (UA) 1+ A Urine Ketones Trace Urine Blood 1+ A Urine Nitrite Negative Urine Bilirubin Negative Urine Urobilinogen (Auto) Negative Ur Leukocyte Esterase Positive Urine RBC 5 H Urine WBC 20 H Ur Squamous Epith Cells 7 H Urine Bacteria None Hyaline Casts < 1 Urine Opiates Screen Negative Urine Fentanyl Screen Negative Ur Barbiturates Screen Negative U Amphetamin/Meth Scrn Negative U Benzodiazepines Scrn Negative U Cocaine Metab Screen Negative U Marijuana (THC) Screen Negative 10/17/24 10/17/24 10/17/24 15:25 16:14 18:11 WBC RBC Hgb Hct MCV MCH MCHC RDW Std Deviation Plt Count Neut % (Auto) Lymph % (Auto) Kinney % (Auto) Eos % (Auto) Baso % (Auto) Neut # (Auto) Lymph # (Auto) Kinney # (Auto) Eos # (Auto) Baso # (Auto) Immature Gran # (Auto) Absolute Nucleated RBC Immature Gran % Nucleated RBC % PT INR APTT Puncture Site Right Radial Left Radial Arterial Line ABG pH 6.86 L* 6.76 L* D 6.83 L* ABG pCO2 23 L 35 D 24 L D ABG pO2 96 D 261 H D 217 H D ABG HCO3 4 L* 5 L* 4 L* ABG O2 Saturation 93 99 H 99 H ABG Base Excess -29 L -30 L -29 L Oxygen Liter Flow 8 FiO2 80 Sodium 136 Potassium 5.8 H D Chloride 85 L Carbon Dioxide < 10.0 L* Anion Gap 41 H BUN 84 H Creatinine 16.7 H* D Estim Creat Clear Calc 4.9 L eGFR 2 L* BUN/Creatinine Ratio 5 L Glucose [address] Glu mg/dL Hemoglobin A1c Calculated Osmolality 303 H Lactic Acid 21.0 H* Calcium 9.1 Corrected Calcium 9.5 Phosphorus 22.6 H Magnesium Total Bilirubin AST ALT Alkaline Phosphatase Lactate Dehydrogenase Total Creatine Kinase Troponin I B-Natriuretic Peptide Total Protein Albumin 3.5 D Globulin Albumin/Globulin Ratio Triglycerides Cholesterol LDL Cholesterol, Calc HDL Cholesterol Cholesterol/HDL Ratio Lipase Beta-Hydroxybutyrate/Acetoacetate 5.8 H Procalcitonin Ur Collection Type Urine Color Urine Clarity Urine pH Ur Specific Sprague Urine Protein Urine Glucose (UA) Urine Ketones Urine Blood Urine Nitrite Urine Bilirubin Urine Urobilinogen (Auto) Ur Leukocyte Esterase Urine RBC Urine WBC Ur Squamous Epith Cells Urine Bacteria Hyaline Casts Urine Opiates Screen Urine Fentanyl Screen Ur Barbiturates Screen U Amphetamin/Meth Scrn U Benzodiazepines Scrn U Cocaine Metab Screen U Marijuana (THC) Screen 10/17/24 10/17/24 10/17/24 21:00 21:48 21:50 WBC RBC Hgb Hct MCV MCH MCHC RDW Std Deviation Plt Count Neut % (Auto) Lymph % (Auto) Kinney % (Auto) Eos % (Auto) Baso % (Auto) Neut # (Auto) Lymph # (Auto) Kinney # (Auto) Eos # (Auto) Baso # (Auto) Immature Gran # (Auto) Absolute Nucleated RBC Immature Gran % Nucleated RBC % PT INR APTT Puncture Site Right Femoral ABG pH 7.04 L* D ABG pCO2 22 L ABG pO2 119 H D ABG HCO3 6 L* ABG O2 Saturation 98 ABG Base Excess -23 L Oxygen Liter Flow FiO2 60 Sodium 137 Potassium 4.6 D Chloride 87 L Carbon Dioxide < 10.0 L* Anion Gap 40 H BUN 63 H Creatinine 10.9 H* D Estim Creat Clear Calc 7.5 L eGFR 4 L* BUN/Creatinine Ratio 6 L Glucose [address] Glu mg/dL Hemoglobin A1c Calculated Osmolality 302 H Lactic Acid Calcium 8.1 L Corrected Calcium 8.4 L Phosphorus 11.5 H Magnesium Total Bilirubin AST ALT Alkaline Phosphatase Lactate Dehydrogenase Total Creatine Kinase Troponin I 0.106 H* B-Natriuretic Peptide Total Protein Albumin 3.6 Globulin Albumin/Globulin Ratio Triglycerides Cholesterol LDL Cholesterol, Calc HDL Cholesterol Cholesterol/HDL Ratio Lipase Beta-Hydroxybutyrate/Acetoacetate 6.1 H Procalcitonin Ur Collection Type Urine Color Urine Clarity Urine pH Ur Specific Sprague Urine Protein Urine Glucose (UA) Urine Ketones Urine Blood Urine Nitrite Urine Bilirubin Urine Urobilinogen (Auto) Ur Leukocyte Esterase Urine RBC Urine WBC Ur Squamous Epith Cells Urine Bacteria Hyaline Casts Urine Opiates Screen Urine Fentanyl Screen Ur Barbiturates Screen U Amphetamin/Meth Scrn U Benzodiazepines Scrn U Cocaine Metab Screen U Marijuana (THC) Screen 10/17/24 10/18/24 10/18/24 21:58 02:01 02:25 WBC RBC Hgb Hct MCV MCH MCHC RDW Std Deviation Plt Count Neut % (Auto) Lymph % (Auto) Kinney % (Auto) Eos % (Auto) Baso % (Auto) Neut # (Auto) Lymph # (Auto) Kinney # (Auto) Eos # (Auto) Baso # (Auto) Immature Gran # (Auto) Absolute Nucleated RBC Immature Gran % Nucleated RBC % PT INR APTT Puncture Site Arterial Line ABG pH 7.19 L* D ABG pCO2 25 L ABG pO2 87 D ABG HCO3 9 L* ABG O2 Saturation 97 ABG Base Excess -17 L Oxygen Liter Flow FiO2 45 Sodium 132 L Potassium 4.5 Chloride 88 L Carbon Dioxide < 10.0 L* Anion Gap 34 H BUN 40 H Creatinine 7.9 H* D Estim Creat Clear Calc 10.4 L eGFR 6 L* BUN/Creatinine Ratio 5 L Glucose [address] Glu mg/dL Hemoglobin A1c Calculated Osmolality 288 Lactic Acid 21.0 H* 15.0 H* Calcium 7.8 L Corrected Calcium 8.2 L Phosphorus 6.9 H Magnesium Total Bilirubin AST ALT Alkaline Phosphatase Lactate Dehydrogenase Total Creatine Kinase Troponin I B-Natriuretic Peptide Total Protein Albumin 3.5 Globulin Albumin/Globulin Ratio Triglycerides Cholesterol LDL Cholesterol, Calc HDL Cholesterol Cholesterol/HDL Ratio Lipase Beta-Hydroxybutyrate/Acetoacetate 6.1 H Procalcitonin Ur Collection Type Urine Color Urine Clarity Urine pH Ur Specific Spr[place] Urine Protein Urine Glucose (UA) Urine Ketones Urine Blood Urine Nitrite Urine Bilirubin Urine Urobilinogen (Auto) Ur Leukocyte Esterase Urine RBC Urine WBC Ur Squamous Epith Cells Urine Bacteria Hyaline Casts Urine Opiates Screen Urine Fentanyl Screen Ur Barbiturates Screen U Amphetamin/Meth Scrn U Benzodiazepines Scrn U Cocaine Metab Screen U Marijuana (THC) Screen 10/18/24 10/18/24 10/18/24 06:09 06:11 10:26 WBC 11.2 H RBC 4.32 Hgb 12.3 D Hct 36.8 D MCV 85 MCH 28.5 MCHC 33.4 RDW Std Deviation 45.2 Plt Count 223 D Neut % (Auto) 88 H Lymph % (Auto) 7 L Kinney % (Auto) 5 Eos % (Auto) 0 Baso % (Auto) 0 Neut # (Auto) 9.8 H Lymph # (Auto) 0.8 L Kinney # (Auto) 0.6 Eos # (Auto) 0.0 Baso # (Auto) 0.0 Immature Gran # (Auto) 0.05 H Absolute Nucleated RBC 0.00 Immature Gran % 0 Nucleated RBC % 0 PT INR APTT Puncture Site Right Femoral ABG pH 7.44 D ABG pCO2 26 L ABG pO2 69 L ABG HCO3 18 L ABG O2 Saturation 97 ABG Base Excess -5 L Oxygen Liter Flow FiO2 45 Sodium 134 L Potassium 4.5 Chloride 92 L Carbon Dioxide 16.9 L Anion Gap 25 H BUN 29 H Creatinine 5.1 H* D Estim Creat Clear Calc 16.4 L eGFR 10 L* BUN/Creatinine Ratio 6 L Glucose [address] Glu mg/dL Hemoglobin A1c Calculated Osmolality 285 Lactic Acid 5.5 H* 2.6 H Calcium 8.0 L Corrected Calcium 8.5 Phosphorus 2.4 Magnesium 1.3 L Total Bilirubin 0.6 AST 66 H ALT 65 H Alkaline Phosphatase 70 Lactate Dehydrogenase Total Creatine Kinase Troponin I 0.096 H* B-Natriuretic Peptide 235 H Total Protein 5.4 L Albumin 3.4 L Globulin 2.0 L Albumin/Globulin Ratio 1.7 Triglycerides 296 H Cholesterol 214 H LDL Cholesterol, Calc 134 H HDL Cholesterol 21 L Cholesterol/HDL Ratio 10.2 H Lipase Beta-Hydroxybutyrate/Acetoacetate Procalcitonin Ur Collection Type Urine Color Urine Clarity Urine pH Ur Specific Spr[place] Urine Protein Urine Glucose (UA) Urine Ketones Urine Blood Urine Nitrite Urine Bilirubin Urine Urobilinogen (Auto) Ur Leukocyte Esterase Urine RBC Urine WBC Ur Squamous Epith Cells Urine Bacteria Hyaline Casts Urine Opiates Screen Urine Fentanyl Screen Ur Barbiturates Screen U Amphetamin/Meth Scrn U Benzodiazepines Scrn U Cocaine Metab Screen U Marijuana (THC) Screen 10/18/24 10:30 WBC RBC Hgb Hct MCV MCH MCHC RDW Std Deviation Plt Count Neut % (Auto) Lymph % (Auto) Kinney % (Auto) Eos % (Auto) Baso % (Auto) Neut # (Auto) Lymph # (Auto) Kinney # (Auto) Eos # (Auto) Baso # (Auto) Immature Gran # (Auto) Absolute Nucleated RBC Immature Gran % Nucleated RBC % PT INR APTT Puncture Site Right Femoral ABG pH 7.55 H D ABG pCO2 28 L ABG pO2 61 L ABG HCO3 25 ABG O2 Saturation 96 ABG Base Excess 3 Oxygen Liter Flow FiO2 45 Sodium Potassium Chloride Carbon Dioxide Anion Gap BUN Creatinine Estim Creat Clear Calc eGFR BUN/Creatinine Ratio Glucose Estimated Ave Glu mg/dL Hemoglobin A1c Calculated Osmolality Lactic Acid Calcium Corrected Calcium Phosphorus Magnesium Total Bilirubin AST ALT Alkaline Phosphatase Lactate Dehydrogenase Total Creatine Kinase Troponin I B-Natriuretic Peptide Total Protein Albumin Globulin Albumin/Globulin Ratio Triglycerides Cholesterol LDL Cholesterol, Calc HDL Cholesterol Cholesterol/HDL Ratio Lipase Beta-Hydroxybutyrate/Acetoacetate Procalcitonin Ur Collection Type Urine Color Urine Clarity Urine pH Ur Specific Sprague Urine Protein Urine Glucose (UA) Urine Ketones Urine Blood Urine Nitrite Urine Bilirubin Urine Urobilinogen (Auto) Ur Leukocyte Esterase Urine RBC Urine WBC Ur Squamous Epith Cells Urine Bacteria Hyaline Casts Urine Opiates Screen Urine Fentanyl Screen Ur Barbiturates Screen U Amphetamin/Meth Scrn U Benzodiazepines Scrn U Cocaine Metab Screen U Marijuana (THC) Screen Assessment & Plan Additional Plan Additional Plan: In summary this is a 49yo F admitted for severe acidosis and resp failure with KARTHIKEYAN a/p [employer]- pt was encephalopathic on arrival due to severe metabolic acidosis, currently she is on fent/precedex for sedation CV Shock- distributive in nature and 2/2 severe acidosis -> ? any underlying sepsis, on abx, cx sent and pending. bedside echo shows hyperdynamic LV, no signs of obstructive etiology or cardiogenic. given several lts of IVF thus far however has had large dilute urine output as well. She is only net pos 4lts despite receiving >8lts. currently on levo/vaso and hydrocortisone for ? refractory septic shock and relative renal insufficiency. if cx neg can DC hydrocortisone. echo pending Tropinemia- fu with trops-> peaked and trending down - echo - slightly elevated in the setting of KARTHIKEYAN and likely related to demand Resp Acute hypoxic resp failure- intubated and on MV, fu with ABG and CXR - currently improving metabolic demands - will decrease Ve from 17 to 11 - fu on repeat ABG Renal KARTHIKEYAN- likely prerenal in the setting of n/v for 2weeks with poor PO intake - monitor i/os - avoid nephrotoxins - nephrology eval appreciated - emergency HD for life threatening acidosis AGMA- AG of 41 on arrival with a LA in the 20s. Small component of ketones from DKA however the majority of the acidosis is 2/2 LA and prob metformin toxicity. requires emergency HD, - this AM #s improving after a few hrs on CRRT -did receive a few amps of HCO3 GI NPO Transaminitis- slightly elevated - fu with US Endo DKA- beta hydroxy elevated at 5.3 on arrival , this does not explain pts pH of 6.8. ? starvation ketosis given lack of PO intake over the last 2 weeks v DKA, - started on DKA protocol this AM with insulin gtt and IVF Dyslipidemia- statin prior to DC Heme Leukocytosis- likely reactive DVT proh- heparin ID SIRS criteria met-> cx taken and on abx, case d/w ICU team and nephrology I was in contact via phone with the ICU team (nursing and resident) over the course of yesterday afternoon, evening and [employer] law clerk prior to my arrival labs, imaging, records reviewed ~75ccmin required for eval, exam, review, intervention, discussion and formulation of POC for this critically ill pt at high risk for further and ongoing decompensation Provider Notation Provider Notation: Although this document has been carefully reviewed, there may still be some phonetic and other typographical errors. These errors are purely grammatical due to imperfections in the software program and should not be construed in any way to compromise the substance of the patient's medical care during this visit. Thank you for the opportunity and privilege in assisting you with this patient's care and management.
--- NOTE | 2024-10-18 11:02 | PC.NURSE ---
Med reconciliation not completed, asked pt's son Edward to bring in the home medications when available.
[2024-10-18 11:06] LABS: INR 1.1 (0.9-1.3); Prothrombin Time 11.9 Seconds (9.0-12.2)
[2024-10-18 11:15] LABS: Anion Gap 17 (7-16); BUN/Creatinine Ratio 6 Ratio (12-20); Blood Urea Nitrogen 17 mg/dL (9-23); Calcium 8.4 mg/dL (8.3-10.6); Calcium (Corrected) 9.2 mg/dL (8.5-10.1); Carbon Dioxide 21.1 mMol/L (20.0-31.0); Chloride 98 mMol/L (98-107); Estimated Creatinine Clearance 27.9 mL/min (>60); Glucose 119 mg/dL (74-106); Magnesium 1.3 mg/dL (1.6-2.6); Osmolality,Calculated 274 (275-295); Potassium 3.2 mMol/L (3.4-5.1); Sodium 136 mMol/L (136-145); eGFR 18 See Note
[2024-10-18] MEDS: RINGERS LACTATED 1000 ML 500 ML 999 ML IV ×2 (11:19→13:18)
--- NOTE | 2024-10-18 11:44 | ESPR_ITS ---
Documentation for date of: 10/18/24 Subjective Subjective Interval history: Ms. Morris is a 49-year-old lady with extensive history of diabetes, hypertension, dyslipidemia-follows up at [facility] was brought to the emergency department with weakness decreased appetite and some confusion going on for the last 2 weeks. As per the ER records patient was recently diagnosed with diabetes and was started on Synjardy, Zepbound and since then has not been feeling well. Social history: Does not smoke or drink, she is a [id number] mom and usually ambulates and is able to do her ADLs independently Home Medications: Tramadol 50 mg, Synjardy (empagliflozin and metformin combination), zepbound 2.5, celecoxib 200 mg, atorvastatin 40 mg, diphenoxylate hydrochloride 2.5 x 4 times a day as needed, lisinopril 10 milligrams p.o. daily, ondansetron 8 milligrams p.o. as needed In the ED patient had a blood pressure of 103/51, pulse 97, RR 30, temperature 97.8, O2 sat 96 on 7 L nasal cannula initially subsequently due to acute respiratory failure was intubated. Labs showed ABG pH 6.84, pCO2 20. Sodium 133, potassium 7.4, bicarbonate less than 10, anion gap 41, BUN 97, creatinine 19.5, lactic acid 17, AST 44, ALT 53, BNP 503, troponin 0.049, lipase 58, beta hydroxy 5.3, Pro-Sunny 0.99, urinalysis shows UTI In the emergency department patient received 5 L of Ringer lactate and 3 A of bicarb pushes. Patient was started on fluids and subsequently transferred to ICU. Nephrology consultation was requested in need of emergency dialysis due to severe intractable metabolic acidosis, KARTHIKEYAN. In the ICU patient became hypotensive needing pressors. CRRT was initiated after line was placed by ICU team. 10/18/2024 patient currently seen in ICU. On CRRT. Overnight she had some clotting problems so I added heparin with CRRT today.WBC 11.2, hemoglobin 12.3, platelets 223. ICU team at bedside. Patient remains in ICU on pressors. On ventilator. INR 1.1. ABG showing a pH 7.44, pCO2 76, HCO3 18, PO269. Sodium 134, potassium 4.5, bicarbonate 16.9, BUN 29, creatinine 5.1, glucose 294, lactic acid 5.5, calcium 8.5, phosphorus 2.4, magnesium 1.3, AST 66, ALT 65, troponin 0.096, BNP 235, albumin 3.4, triglycerides 296, total cholesterol 214, LDL 134, beta hydroxy 6.1 A1c 9.1 urinalysis shows 3+ protein/1+ glucose urine tox screen negative. Decided to continue with CRRT session today. Review of Systems Review of Systems ROS Unobtainable: unobtainable due to medical condition and due to endotracheal tube Exam Vital Signs Temp Pulse Resp BP Pulse Ox O2 Del Method O2 Flow Rate 36.1 C 88 35 H 123/68 94 L Mechanical Ventilation 7 10/18/24 08:00 10/18/24 11:30 10/18/24 02:45 10/18/24 11:30 10/18/24 11:30 10/17/24 17:25 10/17/24 15:23 FiO2 45 10/18/24 10:31 Narrative Exam GENERAL APPEARANCE: Patient currently seen in ICU. Intubated, sedated CARDIOVASCULAR: Heart regular, no murmurs LUNGS/CHEST: Chest clear to auscultation. No rales, rhonchi, wheezing ABDOMEN: Soft, nontender, nondistended. No masses. Normal bowel sounds. EXTREMITIES: 1+ edema in the lower extremities SKIN: Skin exam normal without any rashes MUSCULOSKELETAL: in bed NEUROLOGICAL : Intubated, sedated Objective Labs 10/18/24 06:11 10/18/24 13:51 Labs: Laboratory Results - last 24 hr 10/17/24 10/17/24 10/17/24 14:05 14:15 14:51 WBC 10.1 RBC 5.07 Hgb 14.4 Hct 46.9 H MCV 93 MCH 28.4 MCHC 30.7 L RDW Std Deviation 51.8 H Plt Count 328 Neut % (Auto) 74 Lymph % (Auto) 17 [place] % (Auto) 8 Eos % (Auto) 0 Baso % (Auto) 0 Neut # (Auto) 7.5 Lymph # (Auto) 1.7 [place] # (Auto) 0.8 Eos # (Auto) 0.0 Baso # (Auto) 0.0 Immature Gran # (Auto) 0.09 H Absolute Nucleated RBC 0.00 Immature Gran % 1 H Nucleated RBC % 0 PT 11.5 INR 1.1 APTT 37.2 H Puncture Site Left Radial ABG pH 6.84 L* ABG pCO2 20 L ABG pO2 76 L ABG HCO3 3 L* ABG O2 Saturation 86 L ABG Base Excess -30 L Oxygen Liter Flow FiO2 21 Sodium 133 L Potassium 7.4 H* Chloride 82 L Carbon Dioxide < 10.0 L* Anion Gap 41 H BUN 97 H Creatinine 19.5 H* Estim Creat Clear Calc 4.2 L eGFR 2 L* BUN/Creatinine Ratio 5 L Glucose [address] Glu mg/dL 214 H Hemoglobin A1c 9.1 H Calculated Osmolality 295 Lactic Acid 17.0 H* Calcium 9.4 Corrected Calcium 9.4 Phosphorus Magnesium 3.2 H Total Bilirubin 0.3 AST 44 H ALT 53 H Alkaline Phosphatase 76 Lactate Dehydrogenase 257 H Total Creatine Kinase 137 Troponin I 0.049 H* B-Natriuretic Peptide 503 H* Total Protein 7.5 Albumin 4.5 Globulin 3.0 Albumin/Globulin Ratio 1.5 Triglycerides Cholesterol LDL Cholesterol, Calc HDL Cholesterol Cholesterol/HDL Ratio Lipase 58 H Beta-Hydroxybutyrate/Acetoacetate 5.3 H Procalcitonin 0.99 H Ur Collection Type Clean Catch Urine Color Yellow Urine Clarity Turbid A Urine pH 5.5 Ur Specific [place] 1.031 Urine Protein 3+ A Urine Glucose (UA) 1+ A Urine Ketones Trace Urine Blood 1+ A Urine Nitrite Negative Urine Bilirubin Negative Urine Urobilinogen (Auto) Negative Ur Leukocyte Esterase Positive Urine RBC 5 H Urine WBC 20 H Ur Squamous Epith Cells 7 H Urine Bacteria None Hyaline Casts < 1 Urine Opiates Screen Negative Urine Fentanyl Screen Negative Ur Barbiturates Screen Negative U Amphetamin/Meth Scrn Negative U Benzodiazepines Scrn Negative U Cocaine Metab Screen Negative U Marijuana (THC) Screen Negative 10/17/24 10/17/24 10/17/24 15:25 16:14 18:11 WBC RBC Hgb Hct MCV MCH MCHC RDW Std Deviation Plt Count Neut % (Auto) Lymph % (Auto) [place] % (Auto) Eos % (Auto) Baso % (Auto) Neut # (Auto) Lymph # (Auto) [place] # (Auto) Eos # (Auto) Baso # (Auto) Immature Gran # (Auto) Absolute Nucleated RBC Immature Gran % Nucleated RBC % PT INR APTT Puncture Site Right Radial Left Radial Arterial Line ABG pH 6.86 L* 6.76 L* D 6.83 L* ABG pCO2 23 L 35 D 24 L D ABG pO2 96 D 261 H D 217 H D ABG HCO3 4 L* 5 L* 4 L* ABG O2 Saturation 93 99 H 99 H ABG Base Excess -29 L -30 L -29 L Oxygen Liter Flow 8 FiO2 80 Sodium 136 Potassium 5.8 H D Chloride 85 L Carbon Dioxide < 10.0 L* Anion Gap 41 H BUN 84 H Creatinine 16.7 H* D Estim Creat Clear Calc 4.9 L eGFR 2 L* BUN/Creatinine Ratio 5 L Glucose [address] Glu mg/dL Hemoglobin A1c Calculated Osmolality 303 H Lactic Acid 21.0 H* Calcium 9.1 Corrected Calcium 9.5 Phosphorus 22.6 H Magnesium Total Bilirubin AST ALT Alkaline Phosphatase Lactate Dehydrogenase Total Creatine Kinase Troponin I B-Natriuretic Peptide Total Protein Albumin 3.5 D Globulin Albumin/Globulin Ratio Triglycerides Cholesterol LDL Cholesterol, Calc HDL Cholesterol Cholesterol/HDL Ratio Lipase Beta-Hydroxybutyrate/Acetoacetate 5.8 H Procalcitonin Ur Collection Type Urine Color Urine Clarity Urine pH Ur Specific [place] Urine Protein Urine Glucose (UA) Urine Ketones Urine Blood Urine Nitrite Urine Bilirubin Urine Urobilinogen (Auto) Ur Leukocyte Esterase Urine RBC Urine WBC Ur Squamous Epith Cells Urine Bacteria Hyaline Casts Urine Opiates Screen Urine Fentanyl Screen Ur Barbiturates Screen U Amphetamin/Meth Scrn U Benzodiazepines Scrn U Cocaine Metab Screen U Marijuana (THC) Screen 10/17/24 10/17/24 10/17/24 21:00 21:48 21:50 WBC RBC Hgb Hct MCV MCH MCHC RDW Std Deviation Plt Count Neut % (Auto) Lymph % (Auto) [place] % (Auto) Eos % (Auto) Baso % (Auto) Neut # (Auto) Lymph # (Auto) [place] # (Auto) Eos # (Auto) Baso # (Auto) Immature Gran # (Auto) Absolute Nucleated RBC Immature Gran % Nucleated RBC % PT INR APTT Puncture Site Right Femoral ABG pH 7.04 L* D ABG pCO2 22 L ABG pO2 119 H D ABG HCO3 6 L* ABG O2 Saturation 98 ABG Base Excess -23 L Oxygen Liter Flow FiO2 60 Sodium 137 Potassium 4.6 D Chloride 87 L Carbon Dioxide < 10.0 L* Anion Gap 40 H BUN 63 H Creatinine 10.9 H* D Estim Creat Clear Calc 7.5 L eGFR 4 L* BUN/Creatinine Ratio 6 L Glucose [address] Glu mg/dL Hemoglobin A1c Calculated Osmolality 302 H Lactic Acid Calcium 8.1 L Corrected Calcium 8.4 L Phosphorus 11.5 H Magnesium Total Bilirubin AST ALT Alkaline Phosphatase Lactate Dehydrogenase Total Creatine Kinase Troponin I 0.106 H* B-Natriuretic Peptide Total Protein Albumin 3.6 Globulin Albumin/Globulin Ratio Triglycerides Cholesterol LDL Cholesterol, Calc HDL Cholesterol Cholesterol/HDL Ratio Lipase Beta-Hydroxybutyrate/Acetoacetate 6.1 H Procalcitonin Ur Collection Type Urine Color Urine Clarity Urine pH Ur Specific [place] Urine Protein Urine Glucose (UA) Urine Ketones Urine Blood Urine Nitrite Urine Bilirubin Urine Urobilinogen (Auto) Ur Leukocyte Esterase Urine RBC Urine WBC Ur Squamous Epith Cells Urine Bacteria Hyaline Casts Urine Opiates Screen Urine Fentanyl Screen Ur Barbiturates Screen U Amphetamin/Meth Scrn U Benzodiazepines Scrn U Cocaine Metab Screen U Marijuana (THC) Screen 10/17/24 10/18/24 10/18/24 21:58 02:01 02:25 WBC RBC Hgb Hct MCV MCH MCHC RDW Std Deviation Plt Count Neut % (Auto) Lymph % (Auto) [place] % (Auto) Eos % (Auto) Baso % (Auto) Neut # (Auto) Lymph # (Auto) [place] # (Auto) Eos # (Auto) Baso # (Auto) Immature Gran # (Auto) Absolute Nucleated RBC Immature Gran % Nucleated RBC % PT INR APTT Puncture Site Arterial Line ABG pH 7.19 L* D ABG pCO2 25 L ABG pO2 87 D ABG HCO3 9 L* ABG O2 Saturation 97 ABG Base Excess -17 L Oxygen Liter Flow FiO2 45 Sodium 132 L Potassium 4.5 Chloride 88 L Carbon Dioxide < 10.0 L* Anion Gap 34 H BUN 40 H Creatinine 7.9 H* D Estim Creat Clear Calc 10.4 L eGFR 6 L* BUN/Creatinine Ratio 5 L Glucose [address] Glu mg/dL Hemoglobin A1c Calculated Osmolality 288 Lactic Acid 21.0 H* 15.0 H* Calcium 7.8 L Corrected Calcium 8.2 L Phosphorus 6.9 H Magnesium Total Bilirubin AST ALT Alkaline Phosphatase Lactate Dehydrogenase Total Creatine Kinase Troponin I B-Natriuretic Peptide Total Protein Albumin 3.5 Globulin Albumin/Globulin Ratio Triglycerides Cholesterol LDL Cholesterol, Calc HDL Cholesterol Cholesterol/HDL Ratio Lipase Beta-Hydroxybutyrate/Acetoacetate 6.1 H Procalcitonin Ur Collection Type Urine Color Urine Clarity Urine pH Ur Specific [place] Urine Protein Urine Glucose (UA) Urine Ketones Urine Blood Urine Nitrite Urine Bilirubin Urine Urobilinogen (Auto) Ur Leukocyte Esterase Urine RBC Urine WBC Ur Squamous Epith Cells Urine Bacteria Hyaline Casts Urine Opiates Screen Urine Fentanyl Screen Ur Barbiturates Screen U Amphetamin/Meth Scrn U Benzodiazepines Scrn U Cocaine Metab Screen U Marijuana (THC) Screen 10/18/24 10/18/24 10/18/24 06:09 06:11 10:26 WBC 11.2 H RBC 4.32 Hgb 12.3 D Hct 36.8 D MCV 85 MCH 28.5 MCHC 33.4 RDW Std Deviation 45.2 Plt Count 223 D Neut % (Auto) 88 H Lymph % (Auto) 7 L [place] % (Auto) 5 Eos % (Auto) 0 Baso % (Auto) 0 Neut # (Auto) 9.8 H Lymph # (Auto) 0.8 L [place] # (Auto) 0.6 Eos # (Auto) 0.0 Baso # (Auto) 0.0 Immature Gran # (Auto) 0.05 H Absolute Nucleated RBC 0.00 Immature Gran % 0 Nucleated RBC % 0 PT 11.9 INR 1.1 APTT Puncture Site Right Femoral ABG pH 7.44 D ABG pCO2 26 L ABG pO2 69 L ABG HCO3 18 L ABG O2 Saturation 97 ABG Base Excess -5 L Oxygen Liter Flow FiO2 45 Sodium 134 L 136 Potassium 4.5 3.2 L D Chloride 92 L 98 Carbon Dioxide 16.9 L 21.1 Anion Gap 25 H 17 H BUN 29 H 17 Creatinine 5.1 H* D 3.0 H D Estim Creat Clear Calc 16.4 L 27.9 L eGFR 10 L* 18 L BUN/Creatinine Ratio 6 L 6 L Glucose 294 H D [address] Glu mg/dL Hemoglobin A1c Calculated Osmolality 285 274 L Lactic Acid 5.5 H* 2.6 H Calcium 8.0 L 8.4 Corrected Calcium 8.5 9.2 Phosphorus 2.4 1.0 L Magnesium 1.3 L 1.3 L Total Bilirubin 0.6 AST 66 H ALT 65 H Alkaline Phosphatase 70 Lactate Dehydrogenase Total Creatine Kinase Troponin I 0.096 H* B-Natriuretic Peptide 235 H Total Protein 5.4 L Albumin 3.4 L 3.0 L Globulin 2.0 L Albumin/Globulin Ratio 1.7 Triglycerides 296 H Cholesterol 214 H LDL Cholesterol, Calc 134 H HDL Cholesterol 21 L Cholesterol/HDL Ratio 10.2 H Lipase Beta-Hydroxybutyrate/Acetoacetate Procalcitonin Ur Collection Type Urine Color Urine Clarity Urine pH Ur Specific [place] Urine Protein Urine Glucose (UA) Urine Ketones Urine Blood Urine Nitrite Urine Bilirubin Urine Urobilinogen (Auto) Ur Leukocyte Esterase Urine RBC Urine WBC Ur Squamous Epith Cells Urine Bacteria Hyaline Casts Urine Opiates Screen Urine Fentanyl Screen Ur Barbiturates Screen U Amphetamin/Meth Scrn U Benzodiazepines Scrn U Cocaine Metab Screen U Marijuana (THC) Screen 10/18/24 10:30 WBC RBC Hgb Hct MCV MCH MCHC RDW Std Deviation Plt Count Neut % (Auto) Lymph % (Auto) [place] % (Auto) Eos % (Auto) Baso % (Auto) Neut # (Auto) Lymph # (Auto) [place] # (Auto) Eos # (Auto) Baso # (Auto) Immature Gran # (Auto) Absolute Nucleated RBC Immature Gran % Nucleated RBC % PT INR APTT Puncture Site Right Femoral ABG pH 7.55 H D ABG pCO2 28 L ABG pO2 61 L ABG HCO3 25 ABG O2 Saturation 96 ABG Base Excess 3 Oxygen Liter Flow FiO2 45 Sodium Potassium Chloride Carbon Dioxide Anion Gap BUN Creatinine Estim Creat Clear Calc eGFR BUN/Creatinine Ratio Glucose Estimated Ave Glu mg/dL Hemoglobin A1c Calculated Osmolality Lactic Acid Calcium Corrected Calcium Phosphorus Magnesium Total Bilirubin AST ALT Alkaline Phosphatase Lactate Dehydrogenase Total Creatine Kinase Troponin I B-Natriuretic Peptide Total Protein Albumin Globulin Albumin/Globulin Ratio Triglycerides Cholesterol LDL Cholesterol, Calc HDL Cholesterol Cholesterol/HDL Ratio Lipase Beta-Hydroxybutyrate/Acetoacetate Procalcitonin Ur Collection Type Urine Color Urine Clarity Urine pH Ur Specific [place] Urine Protein Urine Glucose (UA) Urine Ketones Urine Blood Urine Nitrite Urine Bilirubin Urine Urobilinogen (Auto) Ur Leukocyte Esterase Urine RBC Urine WBC Ur Squamous Epith Cells Urine Bacteria Hyaline Casts Urine Opiates Screen Urine Fentanyl Screen Ur Barbiturates Screen U Amphetamin/Meth Scrn U Benzodiazepines Scrn U Cocaine Metab Screen U Marijuana (THC) Screen ABG Interpretation ABG results: 10/17/24 10/17/24 10/17/24 14:15 15:25 16:14 ABG pH 6.84 L* 6.86 L* 6.76 L* D ABG pCO2 20 L 23 L 35 D ABG pO2 76 L 96 D 261 H D ABG HCO3 3 L* 4 L* 5 L* ABG O2 Saturation 86 L 93 99 H ABG Base Excess -30 L -29 L -30 L 10/17/24 10/17/24 10/18/24 18:11 21:48 02:25 ABG pH 6.83 L* 7.04 L* D 7.19 L* D ABG pCO2 24 L D 22 L 25 L ABG pO2 217 H D 119 H D 87 D ABG HCO3 4 L* 6 L* 9 L* ABG O2 Saturation 99 H 98 97 ABG Base Excess -29 L -23 L -17 L 10/18/24 10/18/24 06:09 10:30 ABG pH 7.44 D 7.55 H D ABG pCO2 26 L 28 L ABG pO2 69 L 61 L ABG HCO3 18 L 25 ABG O2 Saturation 97 96 ABG Base Excess -5 L 3 Assessment & Plan Assessment and plan (1) Acute renal failure: Status: Acute Assessment and plan: Acute renal failure secondary to prerenal azotemia-uncontrolled diabetes versus Jardiance, metformin, Celebrex, lisinopril, Lasix. Patient received significant amount of fluids. She has good urinary output. Still with persistent metabolic acidosis-decided to proceed with 1 more session of CRRT. Marked improvement in metabolic acidosis CRRT for 14 hours,, blood flow 150, dialysate flow 100, saline flush 100 mL/h, 2K, 40 bicarbonate, 3.5 calcium, no UF, thousand bolus/200 units/h heparin ordered. Critical care time spent more than 45 minutes regarding plan of care and disease management. Spoke to POLITICAL ORGANIZER regarding CRRT/[place]ablo (2) Acute hyperkalemia: Status: Acute Assessment and plan: Patient's potassium 7.4 probably related to KARTHIKEYAN/severe metabolic acidosis. Started on CRRT--potassium today is much better (3) Acidosis: Status: Acute Assessment and plan: Intractable metabolic acidosis-for DKA/renal failure/med related (Jardiance and metformin) On CRRT--much better. PH Improved markedly Acid-base imbalance-anion gap metabolic acidosis, respiratory alkalosis, mild metabolic alkalosis (4) DKA (diabetic ketoacidosis): Status: Acute Assessment and plan: DKA protocol per ICU--gap markedly improved (5) Acute hypoxic respiratory failure: Status: Acute Assessment and plan: Patient currently on ventilator. Vent adjustments per Dr. Reeves Additional Assessment & Plan Additional Plan: Plan of care discussed with ICU team. Thank you Cindy for allowing me to participate in the care of Ms. Morris Procedures Arterial Line Size (Gauge): 20
[2024-10-18] MEDS: DEXMEDETOMIDINE 400 MCG IVPB 400 MCG/100 ML BAG 21.772 MCG IV (13:08)
[2024-10-18 13:38] LABS: Base Excess 6 (-3-3); HCO3 29 mEq/L (20-26); Inspired Oxygen, FIO2 45 %; O2 Saturation 97 % (91-98); PCO2 36 mmHg (32.0-48.0); PO2 71 mmHg (83-108); pH, Arterial 7.53 (7.35-7.45)
[2024-10-18 13:39] LABS: Puncture Site Arterial Line
[2024-10-18 13:39] LABS: Reflex Lactate? Y
[2024-10-18 14:01] LABS: Lactate (Lactic Acid) 2.7 mMol/L (0.4-2.0)
[2024-10-18 14:21] LABS: Albumin, Serum 3.2 gm/dL (3.5-5.0); Anion Gap 9 (7-16); BUN/Creatinine Ratio 5 Ratio (12-20); Blood Urea Nitrogen 13 mg/dL (9-23); Calcium 8.4 mg/dL (8.3-10.6); Carbon Dioxide 29.8 mMol/L (20.0-31.0); Chloride 97 mMol/L (98-107); Creatinine (Component) 2.4 mg/dL (0.6-1.3); Estimated Creatinine Clearance 34.9 mL/min (>60); Glucose 140 mg/dL (74-106); Magnesium 1.3 mg/dL (1.6-2.6); Osmolality,Calculated 274 (275-295); Phosphorous 1.4 mg/dL (2.4-5.1); Sodium 136 mMol/L (136-145); eGFR 24 See Note
[2024-10-18] MEDS: Magnesium Sulfate 2 GM Ivpb 2 GM/50 ML BAG IV (14:23)
[2024-10-18 14:34] LABS: Base Excess 6 (-3-3); HCO3 32 mEq/L (20-26); Inspired Oxygen, FIO2 50 %; O2 Saturation 94 % (91-98); PCO2 52 mmHg (32.0-48.0); PO2 67 mmHg (83-108); pH, Arterial 7.39 (7.35-7.45)
[2024-10-18 14:35] LABS: Allen Test Performed/OK; Puncture Site Arterial Line
[2024-10-18] MEDS: DEXTROSE 10%-WATER 1000 ML 1,000 ML 50 ML IV (14:47)
--- NOTE | 2024-10-18 15:54 | PC.SS ---
Alexandra Ponce is 49 year old female admitted to ICU for Acut Encephalopathy. SS conducted bedside contact with the patient. Pt was unable to communicate. SS spoke to Edward castro JR to complete initial assessment and to discuss discharge planning.? SW used all precautionary measures to complete initial. Role and reason for the contact was explained to Abel. Abel confirmed demographic information on facesheet and pt lives with family. Edward TUTTLE, gloria, as her surrogate decision maker. Abel ?states prior to hospitalization pt is able to complete ADL?s independently. Pt uses does not use DME nor O2. Pt confirmed no history of mental health or substance abuse. Pts PCP is Elvis Rosenthal. Pharmacy of choice is [facility]. Pt has diabetes and takes medications. Dialysis has been determined while in hospital and medical team is unsure if it will need to be continued. If dialysis needs to be continued, pt will need to have services set up. Advance directive discussed and was not receptive. ?Discharge options discussed and the pt will return home. ?Family will provide transportation upon DC. No further intervention required at this time, nursing home social worker would be available to address any further concerns. DC Plan: Home Contact: gloria Leon JR, Address: Confirmed on face sheet PCP: Elvis Rosenthal
[2024-10-18] MEDS: DEXMEDETOMIDINE 400 MCG IVPB 400 MCG/100 ML BAG 32.659 MCG IV (16:11)
--- NOTE | 2024-10-18 16:26 | PC.DIETICIAN ---
Nutrition prescription When indicated, consider: Vital 1.2 at 20 ml/hr via OG tube by pump. Advance 10 ml every 8 hrs to goal rate of 55 ml/hr x 24 hrs. If no IV fluids, water flushes of 25 ml/hr (or per MD).
--- NOTE | 2024-10-18 16:35 | PC.SS ---
KATIE spoke with Jasmin, Registration updated telephone number for decision maker Edward TUTTLE [phone]
[2024-10-18 16:55] LABS: Reflex Lactate? Y
[2024-10-18 18:37] LABS: Lactate (Lactic Acid) 1.8 mMol/L (0.4-2.0)
[2024-10-18 18:38] LABS: Base Excess 6 (-3-3); HCO3 32 mEq/L (20-26); Inspired Oxygen, FIO2 45 %; O2 Saturation 98 % (91-98); PCO2 52 mmHg (32.0-48.0); PO2 89 mmHg (83-108); Puncture Site Arterial Line
[2024-10-18 18:39] LABS: Allen Test Not Performed
[2024-10-18] MEDS: DEXMEDETOMIDINE 400 MCG IVPB 400 MCG/100 ML BAG 38.102 MCG IV ×2 (18:39→21:47)
[2024-10-18 19:20] LABS: Albumin, Serum 3.2 gm/dL (3.5-5.0); Anion Gap 5 (7-16); BUN/Creatinine Ratio 5 Ratio (12-20); Blood Urea Nitrogen 8 mg/dL (9-23); Calcium 8.4 mg/dL (8.3-10.6); Carbon Dioxide 31.3 mMol/L (20.0-31.0); Chloride 98 mMol/L (98-107); Creatinine (Component) 1.6 mg/dL (0.6-1.3); Estimated Creatinine Clearance 52.4 mL/min (>60); Glucose 191 mg/dL (74-106); Magnesium 1.8 mg/dL (1.6-2.6); Osmolality,Calculated 271 (275-295); Phosphorous 1.8 mg/dL (2.4-5.1); Potassium 4.4 mMol/L (3.4-5.1); Sodium 134 mMol/L (136-145); eGFR 39 See Note
[2024-10-18] MEDS: HEPARIN SOD INJ 1000 UNIT/ML VIAL 10 ML 2600 UNIT INDWELLCAT (19:30)
--- NOTE | 2024-10-18 21:02 | PD.RESEVENT ---
Documentation for date of: 10/18/24 Event Note Event Note: Patient's anion gap has closed 2 times and her metabolic acidosis has improved to 31.3. She has been receiving 0.025 units/kg/h fairly consistently since the initiation of the insulin drip. Extrapolated out based upon a weight of 113 kg and 24 hours total insulin usage comes out to be 68 units over 24 hours. We will initiate the patient on 25 units of glargine with 8 units of Premeal insulin and continue with sliding scale insulin to assess for 20 ideal dosage. Will also initiate the patient on Glucerna and discontinue D10 drip once blood sugars are stable. Jackie Valadez M.D. PGY-3
[2024-10-18] MEDS: INSULIN LISPRO (AdmeLOG) 1 UNIT/0.01 ML UNIT 8 UNIT SC (21:11)
[2024-10-18] MEDS: INSULIN GLARGINE (Lantus) 5 UNIT/0.05 ML (PER 5 UNITS) 25 UNIT SC (21:14)
[2024-10-18 22:11] LABS: Base Excess 3 (-3-3); HCO3 29 mEq/L (20-26); Inspired Oxygen, FIO2 45 %; O2 Saturation 100 % (91-98); PCO2 50 mmHg (32.0-48.0); PO2 126 mmHg (83-108); pH, Arterial 7.38 (7.35-7.45)
[2024-10-18 22:13] LABS: Lactate (Lactic Acid) 2.3 mMol/L (0.4-2.0)
[2024-10-18 22:14] LABS: Allen Test Not Performed; Puncture Site Arterial Line
[2024-10-18 22:50] LABS: Albumin, Serum 3.3 gm/dL (3.5-5.0); Anion Gap 7 (7-16); BUN/Creatinine Ratio 4 Ratio (12-20); Blood Urea Nitrogen 8 mg/dL (9-23); Calcium 9.1 mg/dL (8.3-10.6); Calcium (Corrected) 9.7 mg/dL (8.5-10.1); Carbon Dioxide 27.6 mMol/L (20.0-31.0); Chloride 96 mMol/L (98-107); Creatinine (Component) 1.8 mg/dL (0.6-1.3); Estimated Creatinine Clearance 46.6 mL/min (>60); Glucose 134 mg/dL (74-106); Magnesium 1.6 mg/dL (1.6-2.6); Osmolality,Calculated 262 (275-295); Potassium 4.7 mMol/L (3.4-5.1); Sodium 131 mMol/L (136-145); eGFR 34 See Note
[2024-10-19] VITALS (52 sets, daily range): BP systolic 92–152; BP diastolic 52–107; PULSE 71–114; RESP 10–22; TEMP 36.3–37.2; O2SAT 89–100
[2024-10-19] MEDS: DEXMEDETOMIDINE 400 MCG IVPB 400 MCG/100 ML BAG 38.102 MCG IV ×3 (00:19→05:56)
[2024-10-19 01:08] LABS: Reflex Lactate? Y
[2024-10-19 02:31] LABS: Lactate (Lactic Acid) 1.1 mMol/L (0.4-2.0)
[2024-10-19 02:47] LABS: Albumin, Serum 3.4 gm/dL (3.5-5.0); Anion Gap 6 (7-16); BUN/Creatinine Ratio 6 Ratio (12-20); Blood Urea Nitrogen 11 mg/dL (9-23); Calcium 8.4 mg/dL (8.3-10.6); Calcium (Corrected) 8.9 mg/dL (8.5-10.1); Carbon Dioxide 28.6 mMol/L (20.0-31.0); Chloride 98 mMol/L (98-107); Estimated Creatinine Clearance 41.9 mL/min (>60); Glucose 172 mg/dL (74-106); Magnesium 1.6 mg/dL (1.6-2.6); Osmolality,Calculated 269 (275-295); Sodium 133 mMol/L (136-145); eGFR 30 See Note
[2024-10-19] MEDS: fentaNYL 2,500 MCG/250 ML BAG 2,500 MCG/250 ML BAG 27.5 MCG IV (05:30)
[2024-10-19] MEDS: HYDROCORTISONE SOD SUCC INJ 100 MG VIAL 50 MG IV (05:41)
[2024-10-19] MEDS: HEPARIN SOD INJ 5000 UNIT/ML VIAL SC ×3 (05:41→21:50)
[2024-10-19] MEDS: INSULIN LISPRO (AdmeLOG) 1 UNIT/0.01 ML UNIT SC (05:47)
--- NOTE | 2024-10-19 06:00 | XR_ITS ---
Examination: AP chest single view TECHNIQUE: AP portable semiupright chest single view Date and time: October 19, 2024 0526 hours Comparison October 18, 2024 INDICATIONS: Hypoxic respiratory failure, diagnosis acute hypoxic respiratory failure, postintubation FINDINGS: Mild enlargement cardiac contour Moderate vascular congestion Mild bibasilar pneumonia Right internal jugular dialysis catheter tip SVC Endotracheal tube tip 28 mm above junior. The orogastric tube is in the stomach satisfactory position IMPRESSION: Moderate vascular congestion Mild bibasilar pneumonia
[2024-10-19 07:35] LABS: Basophils % (Auto) 0 % (0-2.5); Eosinophils % (Auto) 0 % (0-10); Hematocrit 36.3 % (36.0-46.0); Hemoglobin 11.5 g/dL (12.0-16.0); Immature Granulocytes % (Auto) 0 % (0-0); Immature Granulocytes Auto 0.02 Thou/mm3 (0.00-0.00); Lymphocytes # (Auto) 0.8 Thou/mm3 (1.0-4.8); Lymphocytes % (Auto) 11 % (10-50); Mean Corpuscular HGB Conc 31.7 g/dl (31.0-37.0); Mean Corpuscular Volume 89 fL (80-100); Monocytes # (Auto) 0.5 Thou/mm3 (0.0-0.8); Monocytes % (Auto) 7 % (0-12); Neutrophils % (Auto) 82 % (37-80); Nucleated Red Blood Cell % 0 /100 WBC (0); Platelet Count 137 Thou/mm3 (140-440); RDW Standard Deviation 47.5 fL (36.4-46.3); White Blood Count 7.4 Thou/mm3 (3.6-11.0)
[2024-10-19] MEDS: INSULIN LISPRO (AdmeLOG) 1 UNIT/0.01 ML UNIT 8 UNIT SC (07:49)
[2024-10-19 07:54] LABS: Alanine Aminotransferase 49 U/L (10-49); Albumin, Serum 3.3 gm/dL (3.5-5.0); Albumin/Globulin Ratio 1.6 (1.2-2.2); Alkaline Phosphatase 64 U/L (46-116); Anion Gap 8 (7-16); Aspartate Amino Transferase 38 U/L (0-34); BUN/Creatinine Ratio 6 Ratio (12-20); Bilirubin,Total 0.4 mg/dL (0.3-1.2); Blood Urea Nitrogen 14 mg/dL (9-23); Calcium 8.3 mg/dL (8.3-10.6); Calcium (Corrected) 8.9 mg/dL (8.5-10.1); Carbon Dioxide 28.1 mMol/L (20.0-31.0); Chloride 98 mMol/L (98-107); Creatinine (Component) 2.3 mg/dL (0.6-1.3); Estimated Creatinine Clearance 52.8 mL/min (>60); Globulin 2.1 gm/dL (2.3-3.5); Glucose 200 mg/dL (74-106); Magnesium 1.6 mg/dL (1.6-2.6); Osmolality,Calculated 274 (275-295); Potassium 4.9 mMol/L (3.4-5.1); Sodium 134 mMol/L (136-145); Total Protein 5.4 gm/dL (5.7-8.2); eGFR 25 See Note
[2024-10-19] MEDS: BUMETANIDE INJ 0.25 MG/ML VIAL 4 ML 2 MG IV (07:54)
[2024-10-19] MEDS: PIPER/TAZO 3.375 GM PREMIX 3.375 GM/50 ML BAG IV ×3 (08:02→21:54)
[2024-10-19] MEDS: PANTOPRAZOLE INJ 40 MG VIAL IVP (08:02)
[2024-10-19 08:33] LABS: Hepatitis A Antibody IgM Non Reactive (Non React); Hepatitis B Core Antibody IgM Non Reactive (Non React); Hepatitis B Surface Antigen Non Reactive (Non React); Hepatitis C Antibody Non Reactive (Non React)
--- NOTE | 2024-10-19 08:34 | PD.RESPRO ---
Documentation for date of: 10/19/24 Subjective Subjective Interval history: Ms. Morris is a 49-year-old lady with extensive history of diabetes, hypertension, dyslipidemia-[facility] brought to the emergency department with weakness decreased appetite and some confusion going on for the last 2 weeks. As per the ER records patient was recently diagnosed with diabetes and was started on Synjardy, Zepbound and since then has not been feeling well. 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 daily, ondansetron 8 milligrams p.o. as needed In the ED patient had a blood pressure of 103/51, pulse 97, RR 30, temperature 97.8, O2 sat 96 on 7 L nasal cannula initially subsequently due to acute respiratory failure was intubated. Labs showed ABG pH 6.84, pCO2 20. Sodium 133, potassium 7.4, bicarbonate less than 10, anion gap 41, BUN 97, creatinine 19.5, lactic acid 17, AST 44, ALT 53, BNP 503, troponin 0.049, lipase 58, beta hydroxy 5.3, Pro-Sunny 0.99, urinalysis shows UTI In the emergency department patient received 5 L of Ringer lactate and 3 A of bicarb pushes. Patient was started on fluids and subsequently transferred to ICU. Nephrology consultation was requested in need of emergency dialysis due to severe intractable metabolic acidosis, KARTHIKEYAN. In the ICU patient became hypotensive needing pressors. CRRT was initiated after line was placed by ICU team. 10/18/2024 patient currently seen in ICU. On CRRT. Overnight she had some clotting problems so I added heparin with CRRT today.WBC 11.2, hemoglobin 12.3, platelets 223. ICU team at bedside. Patient remains in ICU on pressors. On ventilator. INR 1.1. ABG showing a pH 7.44, pCO2 76, HCO3 18, PO269. Sodium 134, potassium 4.5, bicarbonate 16.9, BUN 29, creatinine 5.1, glucose 294, lactic acid 5.5, calcium 8.5, phosphorus 2.4, magnesium 1.3, AST 66, ALT 65, troponin 0.096, BNP 235, albumin 3.4, triglycerides 296, total cholesterol 214, LDL 134, beta hydroxy 6.1 A1c 9.1 urinalysis shows 3+ protein/1+ glucose urine tox screen negative. Decided to continue with CRRT session today. 10/19/2024: Patient seen and examined in ICU. Patient remains sedated and intubated. Patient has had diminishing urinary output, 1 L total over past 24 hours, with under 100 mL/h past several hours. Patient is significantly volume overloaded. WBC 7.4, hemoglobin 11.5. ABG showing pH 7.38, pCO2 50, pO2 126, bicarb 29. Sodium 134, potassium 4.9, bicarb 20.1, BUN 14, creatinine 2.3, EGFR 25. Lactic acid down to 1.1. Will hold off on CRRT today, give 2 mg Bumex x 1 to see if urinary output improves. Exam Vital Signs Temp Pulse Resp BP Pulse Ox O2 Del Method O2 Flow Rate 97.5 F 74 19 116/77 95 Mechanical Ventilation 7 10/19/24 08:00 10/19/24 08:00 10/18/24 19:30 10/19/24 08:00 10/19/24 08:00 10/17/24 17:25 10/17/24 15:23 FiO2 30 10/19/24 08:00 Narrative Exam GENERAL APPEARANCE: Intubated, sedated CARDIOVASCULAR: Heart regular, no murmurs LUNGS/CHEST: Chest clear to auscultation. No rales, rhonchi, wheezing ABDOMEN: Soft, nontender, nondistended. No masses. Normal bowel sounds. EXTREMITIES: 3+ edema in the lower extremities SKIN: Skin exam normal without any rashes MUSCULOSKELETAL: in bed NEUROLOGICAL : Intubated, sedated, grimaces to noxious stimuli Objective Labs 10/19/24 06:58 10/19/24 06:58 Labs: Laboratory Results - last 24 hr 10/18/24 10/18/24 10/18/24 06:11 10:26 10:30 WBC RBC Hgb Hct MCV MCH MCHC RDW Std Deviation Plt Count Neut % (Auto) Lymph % (Auto) [place] % (Auto) Eos % (Auto) Baso % (Auto) Neut # (Auto) Lymph # (Auto) [place] # (Auto) Eos # (Auto) Baso # (Auto) Immature Gran # (Auto) Absolute Nucleated RBC Immature Gran % Nucleated RBC % PT 11.9 INR 1.1 Puncture Site Right Femoral ABG pH 7.55 H D ABG pCO2 28 L ABG pO2 61 L ABG HCO3 25 ABG O2 Saturation 96 ABG Base Excess 3 FiO2 45 Sodium 134 L 136 Potassium 4.5 3.2 L D Chloride 92 L 98 Carbon Dioxide 16.9 L 21.1 Anion Gap 25 H 17 H BUN 29 H 17 Creatinine 5.1 H* D 3.0 H D Estim Creat Clear Calc 16.4 L 27.9 L eGFR 10 L* 18 L BUN/Creatinine Ratio 6 L 6 L Glucose 294 H D 119 H D Calculated Osmolality 285 274 L Lactic Acid 2.6 H Calcium 8.0 L 8.4 Corrected Calcium 8.5 9.2 Phosphorus 2.4 1.0 L Magnesium 1.3 L 1.3 L Total Bilirubin 0.6 AST 66 H ALT 65 H Alkaline Phosphatase 70 Troponin I 0.096 H* B-Natriuretic Peptide 235 H Total Protein 5.4 L Albumin 3.4 L 3.0 L Globulin 2.0 L Albumin/Globulin Ratio 1.7 Triglycerides 296 H Cholesterol 214 H LDL Cholesterol, Calc 134 H HDL Cholesterol 21 L Cholesterol/HDL Ratio 10.2 H Hepatitis A IgM Ab Hep Bs Antigen Hep B Core IgM Ab Hepatitis C Antibody 10/18/24 10/18/24 10/18/24 13:30 13:51 14:25 WBC RBC Hgb Hct MCV MCH MCHC RDW Std Deviation Plt Count Neut % (Auto) Lymph % (Auto) [place] % (Auto) Eos % (Auto) Baso % (Auto) Neut # (Auto) Lymph # (Auto) [place] # (Auto) Eos # (Auto) Baso # (Auto) Immature Gran # (Auto) Absolute Nucleated RBC Immature Gran % Nucleated RBC % PT INR Puncture Site Arterial Line Arterial Line ABG pH 7.53 H 7.39 D ABG pCO2 36 52 H D ABG pO2 71 L 67 L ABG HCO3 29 H 32 H ABG O2 Saturation 97 94 ABG Base Excess 6 H 6 H FiO2 45 50 Sodium 136 Potassium 4.0 D Chloride 97 L Carbon Dioxide 29.8 Anion Gap 9 BUN 13 Creatinine 2.4 H D Estim Creat Clear Calc 34.9 L eGFR 24 L BUN/Creatinine Ratio 5 L Glucose 140 H Calculated Osmolality 274 L Lactic Acid 2.7 H Calcium 8.4 Corrected Calcium 9.0 Phosphorus 1.4 L Magnesium 1.3 L Total Bilirubin AST ALT Alkaline Phosphatase Troponin I B-Natriuretic Peptide Total Protein Albumin 3.2 L Globulin Albumin/Globulin Ratio Triglycerides Cholesterol LDL Cholesterol, Calc HDL Cholesterol Cholesterol/HDL Ratio Hepatitis A IgM Ab Hep Bs Antigen Hep B Core IgM Ab Hepatitis C Antibody 10/18/24 10/18/24 10/18/24 18:17 18:25 21:51 WBC RBC Hgb Hct MCV MCH MCHC RDW Std Deviation Plt Count Neut % (Auto) Lymph % (Auto) [place] % (Auto) Eos % (Auto) Baso % (Auto) Neut # (Auto) Lymph # (Auto) [place] # (Auto) Eos # (Auto) Baso # (Auto) Immature Gran # (Auto) Absolute Nucleated RBC Immature Gran % Nucleated RBC % PT INR Puncture Site Arterial Line ABG pH 7.40 ABG pCO2 52 H ABG pO2 89 D ABG HCO3 32 H ABG O2 Saturation 98 ABG Base Excess 6 H FiO2 45 Sodium 134 L 131 L Potassium 4.4 4.7 Chloride 98 96 L Carbon Dioxide 31.3 H 27.6 Anion Gap 5 L 7 BUN 8 L 8 L Creatinine 1.6 H D 1.8 H Estim Creat Clear Calc 52.4 L 46.6 L eGFR 39 L 34 L BUN/Creatinine Ratio 5 L 4 L Glucose 191 H D 134 H D Calculated Osmolality 271 L 262 L Lactic Acid 1.8 2.3 H Calcium 8.4 9.1 Corrected Calcium 9.0 9.7 Phosphorus 1.8 L 2.0 L Magnesium 1.8 1.6 Total Bilirubin AST ALT Alkaline Phosphatase Troponin I B-Natriuretic Peptide Total Protein Albumin 3.2 L 3.3 L Globulin Albumin/Globulin Ratio Triglycerides Cholesterol LDL Cholesterol, Calc HDL Cholesterol Cholesterol/HDL Ratio Hepatitis A IgM Ab Hep Bs Antigen Hep B Core IgM Ab Hepatitis C Antibody 10/18/24 10/19/24 10/19/24 21:54 02:21 06:58 WBC 7.4 RBC 4.10 Hgb 11.5 L Hct 36.3 MCV 89 MCH 28.0 MCHC 31.7 RDW Std Deviation 47.5 H Plt Count 137 L D Neut % (Auto) 82 H Lymph % (Auto) 11 [place] % (Auto) 7 Eos % (Auto) 0 Baso % (Auto) 0 Neut # (Auto) 6.0 Lymph # (Auto) 0.8 L [place] # (Auto) 0.5 Eos # (Auto) 0.0 Baso # (Auto) 0.0 Immature Gran # (Auto) 0.02 H Absolute Nucleated RBC 0.00 Immature Gran % 0 Nucleated RBC % 0 PT INR Puncture Site Arterial Line ABG pH 7.38 ABG pCO2 50 H ABG pO2 126 H D ABG HCO3 29 H ABG O2 Saturation 100 H ABG Base Excess 3 FiO2 45 Sodium 133 L 134 L Potassium 5.0 4.9 Chloride 98 98 Carbon Dioxide 28.6 28.1 Anion Gap 6 L 8 BUN 11 14 Creatinine 2.0 H 2.3 H Estim Creat Clear Calc 41.9 L 52.8 L eGFR 30 L 25 L BUN/Creatinine Ratio 6 L 6 L Glucose 172 H 200 H Calculated Osmolality 269 L 274 L Lactic Acid 1.1 Calcium 8.4 8.3 Corrected Calcium 8.9 8.9 Phosphorus 2.0 L 2.0 L Magnesium 1.6 1.6 Total Bilirubin 0.4 AST 38 H ALT 49 Alkaline Phosphatase 64 Troponin I B-Natriuretic Peptide Total Protein 5.4 L Albumin 3.4 L 3.3 L Globulin 2.1 L Albumin/Globulin Ratio 1.6 Triglycerides Cholesterol LDL Cholesterol, Calc HDL Cholesterol Cholesterol/HDL Ratio Hepatitis A IgM Ab Non Reactive Hep Bs Antigen Non Reactive Hep B Core IgM Ab Non Reactive Hepatitis C Antibody Non Reactive ABG Interpretation ABG results: 10/17/24 10/17/24 10/17/24 14:15 15:25 16:14 ABG pH 6.84 L* 6.86 L* 6.76 L* D ABG pCO2 20 L 23 L 35 D ABG pO2 76 L 96 D 261 H D ABG HCO3 3 L* 4 L* 5 L* ABG O2 Saturation 86 L 93 99 H ABG Base Excess -30 L -29 L -30 L 10/17/24 10/17/24 10/18/24 18:11 21:48 02:25 ABG pH 6.83 L* 7.04 L* D 7.19 L* D ABG pCO2 24 L D 22 L 25 L ABG pO2 217 H D 119 H D 87 D ABG HCO3 4 L* 6 L* 9 L* ABG O2 Saturation 99 H 98 97 ABG Base Excess -29 L -23 L -17 L 10/18/24 10/18/24 10/18/24 06:09 10:30 13:30 ABG pH 7.44 D 7.55 H D 7.53 H ABG pCO2 26 L 28 L 36 ABG pO2 69 L 61 L 71 L ABG HCO3 18 L 25 29 H ABG O2 Saturation 97 96 97 ABG Base Excess -5 L 3 6 H 10/18/24 10/18/24 10/18/24 14:25 18:25 21:54 ABG pH 7.39 D 7.40 7.38 ABG pCO2 52 H D 52 H 50 H ABG pO2 67 L 89 D 126 H D ABG HCO3 32 H 32 H 29 H ABG O2 Saturation 94 98 100 H ABG Base Excess 6 H 6 H 3 Quality Measures Quality Measures VTE prophylaxis Assessment & Plan Assessment Current Active Medications: Generic Name Dose Route Start Last Admin Trade Name Ramoneq PRN Reason Stop Dose Admin Dextrose 25 ml 10/18/24 21:05 Dextrose 50%-Water Inj 50 Ml Syringe IV 11/17/24 21:04 Q15MIN PRN BG 50-70 responsive npo pt Dextrose 50 ml 10/18/24 21:05 Dextrose 50%-Water Inj 50 Ml Syringe IV 11/17/24 21:04 Q15MIN PRN BG <50 OR BG <70 & pt unresponsive Glucagon 1 mg 10/18/24 21:05 Glucagon Inj 1 Mg Vial IM Q15MIN PRN BG <70, and no IV access Heparin Sodium (Porcine) 5,000 unit 10/17/24 22:00 10/19/24 05:41 Heparin Sod Inj 5000 Unit/Ml Vial SC 10/31/24 21:59 5,000 unit Q8HR [facility] Administration Heparin Sodium (Porcine) 200 unit 10/18/24 09:36 10/18/24 19:06 Heparin Sod Inj 1000 Unit/Ml Vial 10 Ml INDWELLCAT 11/01/24 09:44 200 unit Q1H PRN Administration DIALYSIS Fentanyl Citrate 2,500 mcg in 250 mls @ 2.5 mls/hr 10/17/24 15:19 10/19/24 07:42 Sublimaze Inj 2,500 Mcg/250 Ml Bag IV 10/22/24 15:18 0 mcg/hr .Q24H PRN 0 mls/hr PER PROTOCOL Titration Protocol 25 MCG/HR Norepinephrine/Dextrose 8 mg in 250 mls @ 10.206 mls/hr 10/17/24 15:50 10/19/24 04:30 Levophed In D5w 8mg/250ml IV 11/16/24 15:49 0 mcg/kg/min .Q24H PRN 0 mls/hr PER PROTOCOL Titration Protocol 0.05 MCG/KG/MIN Piperacillin/Tazobactam/Dextrose 3.375 gm in 50 mls @ 12.5 mls/hr 10/18/24 09:00 10/19/24 08:02 Zosyn IV 10/25/24 08:59 12.5 mls/hr Q12HR [facility] Administration Protocol Dexmedetomidine/Sodium Chloride 400 mcg in 100 mls @ 5.443 mls/hr 10/17/24 20:00 10/19/24 07:42 Precedex Ivpb IV 11/16/24 19:59 0 mcg/kg/hr .[id number] PRN 0 mls/hr Per PROTOCOL Titration Protocol 0.2 MCG/KG/HR Insulin Glargine 25 unit 10/19/24 21:00 Insulin Glargine (Lantus) 5 Unit/0.05 Ml (Per 5 Units) SC 11/18/24 20:59 HS [facility] Insulin Human Lispro 0 unit 10/19/24 00:00 10/19/24 05:47 Insulin Lispro (Admelog) 1 Unit/0.01 Ml Unit SC 11/18/24 00:00 1 unit Q6HR [facility] Administration Protocol Insulin Human Lispro 8 unit 10/19/24 12:00 Insulin Lispro (Admelog) 1 Unit/0.01 Ml Unit SC 11/18/24 11:59 Q6HR [facility] Pantoprazole Sodium 40 mg 10/17/24 20:00 10/19/24 08:02 Pantoprazole Inj 40 Mg Vial IVP 11/16/24 19:59 40 mg BID [facility] Administration Sennosides 1 tab 10/19/24 09:00 Senna/Docusate Sod 1 Tab Tablet PO 11/18/24 08:59 QDAY [facility] Protocol Sodium Chloride 3 ml 10/17/24 14:41 10/17/24 15:05 Sodium Chloride Rt Gogo 0.9% 3 Ml Nebu INH 11/16/24 14:40 3 ml PRN PRN Administration SOLN Plan 49-year-old female past medical history of diabetes and hypertension, hyperlipidemia admitted to the ICU for further management of her severe acidemia. Nephrology consulted for urgent CRRT for severe acidemia. #KARTHIKEYAN Likely ATN from prerenal acidemia as well as possible interstitial nephritis. Patient has had diminishing urinary output with worsening KARTHIKEYAN. Creatinine trending up as EGFR trends down, urine output decreased to below 100 mL/h. - Strict I's & O's - Bumex 2 mg IV x 1 - Hold on CRRT for today - Avoid nephrotoxins - Renally dose medications #High anion gap metabolic acidosis, improving Due to lactic acidosis from metformin toxicity, DKA. Patient took synjardy in addition to severe dehydration, poor oral intake and diarrhea. Patient received multiple rounds of CRRT with significant improvement. DKA treated by ICU team as per protocol. - Hold CRRT today - Replete electrolytes as needed - Continue to monitor #Acute metabolic encephalopathy #Shock, improving #Troponinemia #Acute hypoxic respiratory failure #Gastritis #Elevated LFTs #DKA #DM2, A1c 9.1 #Septic shock due to UTI Management as per the ICU team. Thank you for allowing us participate in the care of this patient. Plan of care discussed with attending Dr. Harden. Ken Garcia MD PGY?1 Attending Provider Attestation/Addendum Patient seen and examined with resident physician Dr. Colon. Note reviewed, agree with findings and recommendations. Patient currently seen in ICU. Remains on the ventilator. Urine output seems to be low however patient has a significant fluid overload. Will try Bumex 2 mg IV twice daily today-if no recovery will plan for dialysis tomorrow. Patient got 3 days of dialysis sessions. Plan of care discussed with ICU Team/Dr. Reeves.
[2024-10-19 08:35] LABS: Base Excess 3 (-3-3); HCO3 29 mEq/L (20-26); Inspired Oxygen, FIO2 21 %; O2 Saturation 95 % (91-98); PCO2 47 mmHg (32.0-48.0); PO2 68 mmHg (83-108); pH, Arterial 7.39 (7.35-7.45)
[2024-10-19] MEDS: SENNA/DOCUSATE SOD 1 TAB TABLET PO (08:35)
[2024-10-19 08:36] LABS: Allen Test Not Performed; Puncture Site Arterial Line
--- NOTE | 2024-10-19 08:38 | PD.RESPRO ---
Documentation for date of: 10/19/24 Subjective Subjective Interval history: Patient is a 49-year-old female past medical history of diabetes and hypertension, hyperlipidemia who is coming to the ED due to progressive weakness and confusion with decreased appetite for the last 2 weeks. Patient was accompanied by son and her who contributed to the story as patient was confused and lethargic with shortness of breath and a GCS of 10 at bedside. Son states that she was recently diagnosed with diabetes and obesity after which she was started on weight loss medication set down 2.5 as well as Synjardy 12.5 and 1000 mg. Son states that patient has had decreased appetite with abdominal pain and nausea and inability to eat with frequent vomiting of the little bit of water she tried to drink progressively over the last 2 weeks when she started the medication. She states that despite the inability to eat she continued to take the medications including the Synjardy. They decided to bring the patient today as she was confused and hard to arouse at home. In the ED patient had a blood pressure of 103/51, pulse 97, RR 30, temperature 97.8, O2 sat 96 on 7 L nasal cannula initially. Due to patient's impending respiratory failure she was intubated with a tidal volume of 450, PEEP of 5 and a respiratory rate of 32. CBC showed a WBC of 10.1, hemoglobin of 14.4 and a platelet count of 328. ABG initially was 6.84 with a CO2 of 20 which barely improved to pH was 6.85 despite 100 mEq amp push of bicarb. At that time an additional 50 mEq of bicarb were pushed and started on a bicarb drip. CMP showed a sodium of 133 with a potassium of 7.4 chloride of 82 and a carbon dioxide less than 10, Anion gap is 41 with a BUN of 97 and a creatinine of 19.5, A1c was 9.1 and a lactic acid of 17. Lipase was 58 and beta-hydroxybutyrate was 5.3 with a Pro-Sunny of 0.99. UA was positive for UTI with leukocyte esterase 20 WBCs and 5 RBCs. Patient received a total of 5 L boluses of LR in the ED 150 pushes of bicarb. She also got albuterol 10 mg inhaled as well as insulin 5 units and calcium gluconate 1 g in the ED for the potassium. Rocuronium and etomidate was used to intubate the patient. Levophed was started as well as fentanyl. Patient will be managed in the ICU for severe acidemia likely secondary to metformin intoxication in the setting of renal failure from severe dehydration. 10/18/2024: Overnight, patient was awake and agitated on fentanyl and was given 2 of versed and started on precedex. She was requiring 0.41 of levophed last night and was started on vasopressor and hydrocorticosone Q6H. She had 6 hours of TABLO overnight with 2 hour TABLO downtime. She had significant urine output of 3.5L, with 1.7L in the last 12 hours. Suspect patient in polyuric phase of ATN. This morning, ABG shows significant improvement in the acidosis. Lactic acid improved to 5.5, and BHB is elevated at 6.8. Since lactic acidosis from metformin toxicity improved, will manage DKA with insulin drip. We will continue IV fluids to keep patient euvolemic. Her pressor requirements have improved down to 0.13 this morning. Regarding sedation, will decrease fentanyl and go up on precedex if need to. 10/19/2024: Anion gap closed overnight and patient was transitioned to 25 units of insulin. She was started on Glucerna tube feeds. Levophed was discontinued around. Urine output overnight was only 100cc. This morning, patient appeared volume overloaded. Bumex 2mg IV was given. Patient titrated off both Precedex and Fentanyl this morning for sedation holiday. Remains on minimal ventilator settings. Acidosis resolved. Exam Vital Signs Temp Pulse Resp BP Pulse Ox O2 Del Method O2 Flow Rate 97.5 F 74 19 116/77 95 Mechanical Ventilation 7 10/19/24 08:00 10/19/24 08:00 10/18/24 19:30 10/19/24 08:00 10/19/24 08:00 10/17/24 17:25 10/17/24 15:23 FiO2 30 10/19/24 08:00 Narrative Exam Constitutional: Obese female HEENT: NCAT. L pterygium noted. Pupils reactive to light. Mucous membranes dry. ET/OG tube noted. Respiratory: CTAB bilaterally. Cardiac: RRR. Abdomen: Soft, non-tender. MSK: 3+ bilateral LE edema Skin: Warm, dry, intact. Small scattered petechiae noted L neck/upper chest. Neuro: Grimaces to pain. Lines: ET/OG, R IJ Tri Flow, R femoral A-line, Vásquez Objective Labs 10/20/24 04:45 10/20/24 04:45 Labs: Laboratory Results - last 24 hr 10/18/24 10/18/24 10/18/24 06:11 10:26 10:30 WBC RBC Hgb Hct MCV MCH MCHC RDW Std Deviation Plt Count Neut % (Auto) Lymph % (Auto) [place] % (Auto) Eos % (Auto) Baso % (Auto) Neut # (Auto) Lymph # (Auto) [place] # (Auto) Eos # (Auto) Baso # (Auto) Immature Gran # (Auto) Absolute Nucleated RBC Immature Gran % Nucleated RBC % PT 11.9 INR 1.1 Puncture Site Right Femoral ABG pH 7.55 H D ABG pCO2 28 L ABG pO2 61 L ABG HCO3 25 ABG O2 Saturation 96 ABG Base Excess 3 FiO2 45 Sodium 134 L 136 Potassium 4.5 3.2 L D Chloride 92 L 98 Carbon Dioxide 16.9 L 21.1 Anion Gap 25 H 17 H BUN 29 H 17 Creatinine 5.1 H* D 3.0 H D Estim Creat Clear Calc 16.4 L 27.9 L eGFR 10 L* 18 L BUN/Creatinine Ratio 6 L 6 L Glucose 294 H D 119 H D Calculated Osmolality 285 274 L Lactic Acid 2.6 H Calcium 8.0 L 8.4 Corrected Calcium 8.5 9.2 Phosphorus 2.4 1.0 L Magnesium 1.3 L 1.3 L Total Bilirubin 0.6 AST 66 H ALT 65 H Alkaline Phosphatase 70 Troponin I 0.096 H* B-Natriuretic Peptide 235 H Total Protein 5.4 L Albumin 3.4 L 3.0 L Globulin 2.0 L Albumin/Globulin Ratio 1.7 Triglycerides 296 H Cholesterol 214 H LDL Cholesterol, Calc 134 H HDL Cholesterol 21 L Cholesterol/HDL Ratio 10.2 H Hepatitis A IgM Ab Hep Bs Antigen Hep B Core IgM Ab Hepatitis C Antibody 10/18/24 10/18/24 10/18/24 13:30 13:51 14:25 WBC RBC Hgb Hct MCV MCH MCHC RDW Std Deviation Plt Count Neut % (Auto) Lymph % (Auto) [place] % (Auto) Eos % (Auto) Baso % (Auto) Neut # (Auto) Lymph # (Auto) [place] # (Auto) Eos # (Auto) Baso # (Auto) Immature Gran # (Auto) Absolute Nucleated RBC Immature Gran % Nucleated RBC % PT INR Puncture Site Arterial Line Arterial Line ABG pH 7.53 H 7.39 D ABG pCO2 36 52 H D ABG pO2 71 L 67 L ABG HCO3 29 H 32 H ABG O2 Saturation 97 94 ABG Base Excess 6 H 6 H FiO2 45 50 Sodium 136 Potassium 4.0 D Chloride 97 L Carbon Dioxide 29.8 Anion Gap 9 BUN 13 Creatinine 2.4 H D Estim Creat Clear Calc 34.9 L eGFR 24 L BUN/Creatinine Ratio 5 L Glucose 140 H Calculated Osmolality 274 L Lactic Acid 2.7 H Calcium 8.4 Corrected Calcium 9.0 Phosphorus 1.4 L Magnesium 1.3 L Total Bilirubin AST ALT Alkaline Phosphatase Troponin I B-Natriuretic Peptide Total Protein Albumin 3.2 L Globulin Albumin/Globulin Ratio Triglycerides Cholesterol LDL Cholesterol, Calc HDL Cholesterol Cholesterol/HDL Ratio Hepatitis A IgM Ab Hep Bs Antigen Hep B Core IgM Ab Hepatitis C Antibody 10/18/24 10/18/24 10/18/24 18:17 18:25 21:51 WBC RBC Hgb Hct MCV MCH MCHC RDW Std Deviation Plt Count Neut % (Auto) Lymph % (Auto) [place] % (Auto) Eos % (Auto) Baso % (Auto) Neut # (Auto) Lymph # (Auto) [place] # (Auto) Eos # (Auto) Baso # (Auto) Immature Gran # (Auto) Absolute Nucleated RBC Immature Gran % Nucleated RBC % PT INR Puncture Site Arterial Line ABG pH 7.40 ABG pCO2 52 H ABG pO2 89 D ABG HCO3 32 H ABG O2 Saturation 98 ABG Base Excess 6 H FiO2 45 Sodium 134 L 131 L Potassium 4.4 4.7 Chloride 98 96 L Carbon Dioxide 31.3 H 27.6 Anion Gap 5 L 7 BUN 8 L 8 L Creatinine 1.6 H D 1.8 H Estim Creat Clear Calc 52.4 L 46.6 L eGFR 39 L 34 L BUN/Creatinine Ratio 5 L 4 L Glucose 191 H D 134 H D Calculated Osmolality 271 L 262 L Lactic Acid 1.8 2.3 H Calcium 8.4 9.1 Corrected Calcium 9.0 9.7 Phosphorus 1.8 L 2.0 L Magnesium 1.8 1.6 Total Bilirubin AST ALT Alkaline Phosphatase Troponin I B-Natriuretic Peptide Total Protein Albumin 3.2 L 3.3 L Globulin Albumin/Globulin Ratio Triglycerides Cholesterol LDL Cholesterol, Calc HDL Cholesterol Cholesterol/HDL Ratio Hepatitis A IgM Ab Hep Bs Antigen Hep B Core IgM Ab Hepatitis C Antibody 10/18/24 10/19/24 10/19/24 21:54 02:21 06:58 WBC 7.4 RBC 4.10 Hgb 11.5 L Hct 36.3 MCV 89 MCH 28.0 MCHC 31.7 RDW Std Deviation 47.5 H Plt Count 137 L D Neut % (Auto) 82 H Lymph % (Auto) 11 [place] % (Auto) 7 Eos % (Auto) 0 Baso % (Auto) 0 Neut # (Auto) 6.0 Lymph # (Auto) 0.8 L [place] # (Auto) 0.5 Eos # (Auto) 0.0 Baso # (Auto) 0.0 Immature Gran # (Auto) 0.02 H Absolute Nucleated RBC 0.00 Immature Gran % 0 Nucleated RBC % 0 PT INR Puncture Site Arterial Line ABG pH 7.38 ABG pCO2 50 H ABG pO2 126 H D ABG HCO3 29 H ABG O2 Saturation 100 H ABG Base Excess 3 FiO2 45 Sodium 133 L 134 L Potassium 5.0 4.9 Chloride 98 98 Carbon Dioxide 28.6 28.1 Anion Gap 6 L 8 BUN 11 14 Creatinine 2.0 H 2.3 H Estim Creat Clear Calc 41.9 L 52.8 L eGFR 30 L 25 L BUN/Creatinine Ratio 6 L 6 L Glucose 172 H 200 H Calculated Osmolality 269 L 274 L Lactic Acid 1.1 Calcium 8.4 8.3 Corrected Calcium 8.9 8.9 Phosphorus 2.0 L 2.0 L Magnesium 1.6 1.6 Total Bilirubin 0.4 AST 38 H ALT 49 Alkaline Phosphatase 64 Troponin I B-Natriuretic Peptide Total Protein 5.4 L Albumin 3.4 L 3.3 L Globulin 2.1 L Albumin/Globulin Ratio 1.6 Triglycerides Cholesterol LDL Cholesterol, Calc HDL Cholesterol Cholesterol/HDL Ratio Hepatitis A IgM Ab Non Reactive Hep Bs Antigen Non Reactive Hep B Core IgM Ab Non Reactive Hepatitis C Antibody Non Reactive 10/19/24 08:30 WBC RBC Hgb Hct MCV MCH MCHC RDW Std Deviation Plt Count Neut % (Auto) Lymph % (Auto) [place] % (Auto) Eos % (Auto) Baso % (Auto) Neut # (Auto) Lymph # (Auto) [place] # (Auto) Eos # (Auto) Baso # (Auto) Immature Gran # (Auto) Absolute Nucleated RBC Immature Gran % Nucleated RBC % PT INR Puncture Site Arterial Line ABG pH 7.39 ABG pCO2 47 ABG pO2 68 L D ABG HCO3 29 H ABG O2 Saturation 95 ABG Base Excess 3 FiO2 21 Sodium Potassium Chloride Carbon Dioxide Anion Gap BUN Creatinine Estim Creat Clear Calc eGFR BUN/Creatinine Ratio Glucose Calculated Osmolality Lactic Acid Calcium Corrected Calcium Phosphorus Magnesium Total Bilirubin AST ALT Alkaline Phosphatase Troponin I B-Natriuretic Peptide Total Protein Albumin Globulin Albumin/Globulin Ratio Triglycerides Cholesterol LDL Cholesterol, Calc HDL Cholesterol Cholesterol/HDL Ratio Hepatitis A IgM Ab Hep Bs Antigen Hep B Core IgM Ab Hepatitis C Antibody ABG Interpretation ABG results: 10/17/24 10/17/24 10/17/24 14:15 15:25 16:14 ABG pH 6.84 L* 6.86 L* 6.76 L* D ABG pCO2 20 L 23 L 35 D ABG pO2 76 L 96 D 261 H D ABG HCO3 3 L* 4 L* 5 L* ABG O2 Saturation 86 L 93 99 H ABG Base Excess -30 L -29 L -30 L 10/17/24 10/17/24 10/18/24 18:11 21:48 02:25 ABG pH 6.83 L* 7.04 L* D 7.19 L* D ABG pCO2 24 L D 22 L 25 L ABG pO2 217 H D 119 H D 87 D ABG HCO3 4 L* 6 L* 9 L* ABG O2 Saturation 99 H 98 97 ABG Base Excess -29 L -23 L -17 L 10/18/24 10/18/24 10/18/24 06:09 10:30 13:30 ABG pH 7.44 D 7.55 H D 7.53 H ABG pCO2 26 L 28 L 36 ABG pO2 69 L 61 L 71 L ABG HCO3 18 L 25 29 H ABG O2 Saturation 97 96 97 ABG Base Excess -5 L 3 6 H 10/18/24 10/18/24 10/18/24 14:25 18:25 21:54 ABG pH 7.39 D 7.40 7.38 ABG pCO2 52 H D 52 H 50 H ABG pO2 67 L 89 D 126 H D ABG HCO3 32 H 32 H 29 H ABG O2 Saturation 94 98 100 H ABG Base Excess 6 H 6 H 3 10/19/24 08:30 ABG pH 7.39 ABG pCO2 47 ABG pO2 68 L D ABG HCO3 29 H ABG O2 Saturation 95 ABG Base Excess 3 Quality Measures Quality Measures none Assessment & Plan Assessment Current Active Medications: Generic Name Dose Route Start Last Admin Trade Name Freq PRN Reason Stop Dose Admin Dextrose 25 ml 10/18/24 21:05 Dextrose 50%-Water Inj 50 Ml Syringe IV 11/17/24 21:04 Q15MIN PRN BG 50-70 responsive npo pt Dextrose 50 ml 10/18/24 21:05 Dextrose 50%-Water Inj 50 Ml Syringe IV 11/17/24 21:04 Q15MIN PRN BG <50 OR BG <70 & pt unresponsive Glucagon 1 mg 10/18/24 21:05 Glucagon Inj 1 Mg Vial IM Q15MIN PRN BG <70, and no IV access Heparin Sodium (Porcine) 5,000 unit 10/17/24 22:00 10/19/24 05:41 Heparin Sod Inj 5000 Unit/Ml Vial SC 10/31/24 21:59 5,000 unit Q8HR SOHA Administration Heparin Sodium (Porcine) 200 unit 10/18/24 09:36 10/18/24 19:06 Heparin Sod Inj 1000 Unit/Ml Vial 10 Ml INDWELLCAT 11/01/24 09:44 200 unit Q1H PRN Administration DIALYSIS Fentanyl Citrate 2,500 mcg in 250 mls @ 2.5 mls/hr 10/17/24 15:19 10/19/24 07:42 Sublimaze Inj 2,500 Mcg/250 Ml Bag IV 10/22/24 15:18 0 mcg/hr .Q24H PRN 0 mls/hr PER PROTOCOL Titration Protocol 25 MCG/HR Norepinephrine/Dextrose 8 mg in 250 mls @ 10.206 mls/hr 10/17/24 15:50 10/19/24 04:30 Levophed In D5w 8mg/250ml IV 11/16/24 15:49 0 mcg/kg/min .Q24H PRN 0 mls/hr PER PROTOCOL Titration Protocol 0.05 MCG/KG/MIN Piperacillin/Tazobactam/Dextrose 3.375 gm in 50 mls @ 12.5 mls/hr 10/18/24 09:00 10/19/24 08:02 Zosyn IV 10/25/24 08:59 12.5 mls/hr Q12HR SOHA Administration Protocol Dexmedetomidine/Sodium Chloride 400 mcg in 100 mls @ 5.443 mls/hr 10/17/24 20:00 10/19/24 07:42 Precedex Ivpb IV 11/16/24 19:59 0 mcg/kg/hr .[id number] PRN 0 mls/hr Per PROTOCOL Titration Protocol 0.2 MCG/KG/HR Insulin Glargine 25 unit 10/19/24 21:00 Insulin Glargine (Lantus) 5 Unit/0.05 Ml (Per 5 Units) SC 11/18/24 20:59 HS SOHA Insulin Human Lispro 0 unit 10/19/24 00:00 10/19/24 05:47 Insulin Lispro (Admelog) 1 Unit/0.01 Ml Unit SC 11/18/24 00:00 1 unit Q6HR [facility] Administration Protocol Insulin Human Lispro 6 unit 10/19/24 12:00 Insulin Lispro (Admelog) 1 Unit/0.01 Ml Unit SC 11/18/24 11:59 Q6HR [facility] Pantoprazole Sodium 40 mg 10/17/24 20:00 10/19/24 08:02 Pantoprazole Inj 40 Mg Vial IVP 11/16/24 19:59 40 mg BID S[facility] Administration Polyethylene Glycol 17 gm 10/19/24 08:37 Polyethylene Glycol 17 Gm Packet PO 11/18/24 08:59 QDAY PRN constipation Sennosides 1 tab 10/19/24 09:00 10/19/24 08:35 Senna/Docusate Sod 1 Tab Tablet PO 11/18/24 08:59 1 tab QDAY [facility] Administration Protocol Sodium Chloride 3 ml 10/17/24 14:41 10/17/24 15:05 Sodium Chloride Rt Gogo 0.9% 3 Ml Nebu INH 11/16/24 14:40 3 ml PRN PRN Administration SOLN Plan 49-year-old female past medical history of diabetes and hypertension, hyperlipidemia admitted to the ICU for further management of her severe acidemia Neuro #Acute metabolic encephalopathy Secondary to severe acidemia, UTI - Off fentanyl and precedex CVS #Shock, resolved Likely distributive in the setting of severe acidosis and possibly sepsis from infection - Off levophed, vasopressin, hydrocortisone #Troponinemia 0.049, 0.106 downtrending. EKG did not show any obvious ST segment elevations and patient did not complain of any chest pain on presentation Suspect Type II due to decreased renal clearance. Respiratory #Acute hypoxic respiratory failure Impending respiratory arrest in the setting of severe acidemia as patient struggled to compensate, resolved - SBT GI #Gastritis Likely in the setting of pill induced gastritis as patient was taking medications despite decreased p.o. intake nausea and vomiting - Decreased protonix BID to Qday #Elevated LFTs, resolved Renal #KARTHIKEYAN Likely ATN and from prerenal acidemia as well as possible interstitial nephritis - Nephrology following, holding of HD today - Bumex 2mg IVD BID #High anion gap metabolic acidosis, resolved Due to lactic acidosis from metformin toxicity, DKA. Patient took synjardy in addition to severe dehydration, poor oral intake and diarrhea. Resolved with CRRT. Endocrine #DKA, resolved #DM2, A1c 9.1 - Glargine 25 HS + 6 units Lispro QID + ISS - Bedside blood sugar checks Q6H Hematology #Thrombocytopenia #Normocytic anemia Small decrease. Dilutional? No active bleed. ID #Septic shock due to UTI, resolved Urine culture not ordered, will be sterile as patient already on antibiotics. Patient afebrile, leukocytosis resolved so will discontinue hydrocortisone. - Follow up blood cultures - Zosyn (10/17- Hospital Maintenance: FEN: Glucerna DVT PPx: Heparin subcu GI PPx: Protonix 40 IV IV lines: Right IJ Tri flow, right femoral A-line, peripheral IVs Vásquez: 10/17- Code Status: Full code I have reviewed and discussed the patient's care with my attending, Dr. Leandro Ralph MD PGY-3 Attending Provider Attestation/Addendum pt seen and examined with resident, agree with above. in brief this is a 49yo F admitted to the ICU with KENT[place], resp failure, KARTHIKEYAN and shock. She underwent CRRT with clearance of her metformin and LA and significant improvement in her condition. She was awake today and doing well on the vent. LCTAB, HRRR, obese, abd s/nt/bs+, some edema. Weening parameters were within acceptable parameters and the decision was made to extubate. She had minimal to 0 UOP and was started on bumex. Post extubation she remains slighly confused but able to follow commands. overall she is doing well case d/w ICU team labs, imaging, records reviewed ~40ccmin required for eval, exam, review, intervention, discussion and formulation of POC for this critically ill pt
[2024-10-19] MEDS: BUMETANIDE INJ 20 MG in CONTAINER,EMPTY 50 ML 1 BAG 8 MG IV ×2 (12:00→19:39)
[2024-10-20] VITALS (19 sets, daily range): BP systolic 103–143; BP diastolic 71–91; PULSE 93–104; RESP 15–31; TEMP 36–36.7; O2SAT 98–100
[2024-10-20] MEDS: HEPARIN SOD INJ 5000 UNIT/ML VIAL SC ×3 (06:07→21:21)
[2024-10-20] MEDS: PIPER/TAZO 3.375 GM PREMIX 3.375 GM/50 ML BAG IV (06:07)
[2024-10-20 06:14] LABS: Basophils % (Auto) 1 % (0-2.5); Eosinophils # (Auto) 0.1 Thou/mm3 (0.0-0.5); Eosinophils % (Auto) 1 % (0-10); Hematocrit 37.6 % (36.0-46.0); Hemoglobin 12.1 g/dL (12.0-16.0); Immature Granulocytes % (Auto) 0 % (0-0); Immature Granulocytes Auto 0.02 Thou/mm3 (0.00-0.00); Lymphocytes # (Auto) 2.1 Thou/mm3 (1.0-4.8); Lymphocytes % (Auto) 30 % (10-50); Mean Corpuscular HGB Conc 32.2 g/dl (31.0-37.0); Mean Corpuscular Hemoglobin 28.4 pg (25.0-35.0); Mean Corpuscular Volume 88 fL (80-100); Monocytes # (Auto) 0.5 Thou/mm3 (0.0-0.8); Monocytes % (Auto) 6 % (0-12); Neutrophils # (Auto) 4.3 Thou/mm3 (1.8-7.7); Neutrophils % (Auto) 61 % (37-80); Nucleated Red Blood Cell % 0 /100 WBC (0); Platelet Count 139 Thou/mm3 (140-440); RDW Standard Deviation 46.1 fL (36.4-46.3); Red Blood Count 4.26 Miln/mm3 (4.00-5.20); White Blood Count 7.1 Thou/mm3 (3.6-11.0)
[2024-10-20 06:43] LABS: Alanine Aminotransferase 42 U/L (10-49); Albumin, Serum 3.4 gm/dL (3.5-5.0); Albumin/Globulin Ratio 1.6 (1.2-2.2); Alkaline Phosphatase 69 U/L (46-116); Anion Gap 10 (7-16); Aspartate Amino Transferase 38 U/L (0-34); BUN/Creatinine Ratio 8 Ratio (12-20); Bilirubin,Total 0.6 mg/dL (0.3-1.2); Blood Urea Nitrogen 25 mg/dL (9-23); Calcium 8.4 mg/dL (8.3-10.6); Calcium (Corrected) 8.9 mg/dL (8.5-10.1); Carbon Dioxide 32.9 mMol/L (20.0-31.0); Chloride 97 mMol/L (98-107); Creatinine (Component) 3.2 mg/dL (0.6-1.3); Estimated Creatinine Clearance 39.9 mL/min (>60); Globulin 2.1 gm/dL (2.3-3.5); Glucose 102 mg/dL (74-106); Magnesium 1.7 mg/dL (1.6-2.6); Osmolality,Calculated 283 (275-295); Phosphorous 1.4 mg/dL (2.4-5.1); Potassium 3.1 mMol/L (3.4-5.1); Sodium 140 mMol/L (136-145); Total Protein 5.5 gm/dL (5.7-8.2); eGFR 17 See Note
[2024-10-20] MEDS: NAPH,KPH MBDB 1 PACKET (1.5 GM) PO (09:04)
[2024-10-20] MEDS: POTASSIUM CHLORIDE 10% 20 MEQ/15 ML UDC 40 MEQ PO ×2 (09:04→13:00)
[2024-10-20] MEDS: SENNA/DOCUSATE SOD 1 TAB TABLET PO (09:05)
[2024-10-20] MEDS: POLYETHYLENE GLYCOL 17 GM PACKET PO (09:05)
[2024-10-20] MEDS: PANTOPRAZOLE INJ 40 MG VIAL IVP (09:05)
--- NOTE | 2024-10-20 09:36 | ESPR_ITS ---
Documentation for date of: 10/20/24 Subjective Subjective Interval history: Ms. Morris is a 49-year-old lady with extensive history of diabetes, hypertension, dyslipidemia-follows up at [facility] was brought to the emergency department with weakness decreased appetite and some confusion going on for the last 2 weeks. As per the ER records patient was recently diagnosed with diabetes and was started on Synjardy, Zepbound and since then has not been feeling well. Social history: Does not smoke or drink, she is a [id number] mom and usually ambulates and is able to do her ADLs independently Home Medications: Tramadol 50 mg, Synjardy (empagliflozin and metformin combination), zepbound 2.5, celecoxib 200 mg, atorvastatin 40 mg, diphenoxylate hydrochloride 2.5 x 4 times a day as needed, lisinopril 10 milligrams p.o. daily, ondansetron 8 milligrams p.o. as needed In the ED patient had a blood pressure of 103/51, pulse 97, RR 30, temperature 97.8, O2 sat 96 on 7 L nasal cannula initially subsequently due to acute respiratory failure was intubated. Labs showed ABG pH 6.84, pCO2 20. Sodium 133, potassium 7.4, bicarbonate less than 10, anion gap 41, BUN 97, creatinine 19.5, lactic acid 17, AST 44, ALT 53, BNP 503, troponin 0.049, lipase 58, beta hydroxy 5.3, Pro-Sunny 0.99, urinalysis shows UTI In the emergency department patient received 5 L of Ringer lactate and 3 A of bicarb pushes. Patient was started on fluids and subsequently transferred to ICU. Nephrology consultation was requested in need of emergency dialysis due to severe intractable metabolic acidosis, KARTHIKEYAN. In the ICU patient became hypotensive needing pressors. CRRT was initiated after line was placed by ICU team. 10/18/2024 patient currently seen in ICU. On CRRT. Overnight she had some clotting problems so I added heparin with CRRT today.WBC 11.2, hemoglobin 12.3, platelets 223. ICU team at bedside. Patient remains in ICU on pressors. On ventilator. INR 1.1. ABG showing a pH 7.44, pCO2 76, HCO3 18, PO269. Sodium 134, potassium 4.5, bicarbonate 16.9, BUN 29, creatinine 5.1, glucose 294, lactic acid 5.5, calcium 8.5, phosphorus 2.4, magnesium 1.3, AST 66, ALT 65, troponin 0.096, BNP 235, albumin 3.4, triglycerides 296, total cholesterol 214, LDL 134, beta hydroxy 6.1 A1c 9.1 urinalysis shows 3+ protein/1+ glucose urine tox screen negative. Decided to continue with CRRT session today. 10/19/2024: Patient seen and examined in ICU. Patient remains sedated and intubated. Patient has had diminishing urinary output, 1 L total over past 24 hours, with under 100 mL/h past several hours. Patient is significantly volume overloaded. WBC 7.4, hemoglobin 11.5. ABG showing pH 7.38, pCO2 50, pO2 126, bicarb 29. Sodium 134, potassium 4.9, bicarb 20.1, BUN 14, creatinine 2.3, EGFR 25. Lactic acid down to 1.1. Will hold off on CRRT today, give 2 mg Bumex x 1 to see if urinary output improves. 10/20/2024: Patient seen examined in ICU. Patient [place] extubated, but remains significantly fatigued, complains of generalized pain. Urine output significantly improved with 2 mg Bumex x 1, 4.7 L over past 24 hours. Patient remains 10 L net positive for life of stay. Patient noted to have new bullae on the left hand/forearm. Overall edema appears to be mildly improved. No need for additional diuresis today, will continue to monitor. WBC 7.1, hemoglobin 12.1, sodium 140, potassium 3.1, bicarb 13.9, BUN 25, creatinine 3.2, EGFR 12. Kidney function worsened, suspect ATN, will continue to monitor. Exam Vital Signs Temp Pulse Resp BP Pulse Ox O2 Del Method O2 Flow Rate 96.8 F 98 15 143/91 H 100 Room Air 7 10/20/24 08:01 10/20/24 08:01 10/20/24 08:01 10/20/24 08:01 10/20/24 08:01 10/20/24 08:01 10/17/24 15:23 FiO2 30 10/19/24 09:59 Narrative Exam GENERAL APPEARANCE: Ill-appearing. Awake and alert, generalized tenderness. CARDIOVASCULAR: Heart regular, no murmurs LUNGS/CHEST: Chest clear to auscultation. No rales, rhonchi, wheezing ABDOMEN: Soft, nontender, nondistended. No masses. Normal bowel sounds. EXTREMITIES: 3+ edema in the lower extremities. Bullae on the left hand/forearm. SKIN: Skin exam normal without any rashes MUSCULOSKELETAL: in bed NEUROLOGICAL : No focal neurological deficits. Objective Labs 10/22/24 05:26 10/22/24 05:26 Labs: Laboratory Results - last 24 hr 10/20/24 04:45 WBC 7.1 RBC 4.26 Hgb 12.1 Hct 37.6 MCV 88 MCH 28.4 MCHC 32.2 RDW Std Deviation 46.1 Plt Count 139 L Neut % (Auto) 61 Lymph % (Auto) 30 [place] % (Auto) 6 Eos % (Auto) 1 Baso % (Auto) 1 Neut # (Auto) 4.3 Lymph # (Auto) 2.1 [place] # (Auto) 0.5 Eos # (Auto) 0.1 Baso # (Auto) 0.0 Immature Gran # (Auto) 0.02 H Absolute Nucleated RBC 0.00 Immature Gran % 0 Nucleated RBC % 0 Sodium 140 Potassium 3.1 L D Chloride 97 L Carbon Dioxide 32.9 H Anion Gap 10 BUN 25 H Creatinine 3.2 H D Estim Creat Clear Calc 39.9 L eGFR 17 L BUN/Creatinine Ratio 8 L Glucose 102 D Calculated Osmolality 283 Calcium 8.4 Corrected Calcium 8.9 Phosphorus 1.4 L Magnesium 1.7 Total Bilirubin 0.6 AST 38 H ALT 42 Alkaline Phosphatase 69 Total Protein 5.5 L Albumin 3.4 L Globulin 2.1 L Albumin/Globulin Ratio 1.6 ABG Interpretation ABG results: 10/17/24 10/17/24 10/17/24 14:15 15:25 16:14 ABG pH 6.84 L* 6.86 L* 6.76 L* D ABG pCO2 20 L 23 L 35 D ABG pO2 76 L 96 D 261 H D ABG HCO3 3 L* 4 L* 5 L* ABG O2 Saturation 86 L 93 99 H ABG Base Excess -30 L -29 L -30 L 10/17/24 10/17/24 10/18/24 18:11 21:48 02:25 ABG pH 6.83 L* 7.04 L* D 7.19 L* D ABG pCO2 24 L D 22 L 25 L ABG pO2 217 H D 119 H D 87 D ABG HCO3 4 L* 6 L* 9 L* ABG O2 Saturation 99 H 98 97 ABG Base Excess -29 L -23 L -17 L 10/18/24 10/18/24 10/18/24 06:09 10:30 13:30 ABG pH 7.44 D 7.55 H D 7.53 H ABG pCO2 26 L 28 L 36 ABG pO2 69 L 61 L 71 L ABG HCO3 18 L 25 29 H ABG O2 Saturation 97 96 97 ABG Base Excess -5 L 3 6 H 10/18/24 10/18/24 10/18/24 14:25 18:25 21:54 ABG pH 7.39 D 7.40 7.38 ABG pCO2 52 H D 52 H 50 H ABG pO2 67 L 89 D 126 H D ABG HCO3 32 H 32 H 29 H ABG O2 Saturation 94 98 100 H ABG Base Excess 6 H 6 H 3 10/19/24 08:30 ABG pH 7.39 ABG pCO2 47 ABG pO2 68 L D ABG HCO3 29 H ABG O2 Saturation 95 ABG Base Excess 3 Quality Measures Quality Measures VTE prophylaxis Assessment & Plan Assessment Current Active Medications: Generic Name Dose Route Start Last Admin Trade Name Freq PRN Reason Stop Dose Admin Dextrose 25 ml 10/18/24 21:05 Dextrose 50%-Water Inj 50 Ml Syringe IV 11/17/24 21:04 Q15MIN PRN BG 50-70 responsive npo pt Dextrose 50 ml 10/18/24 21:05 Dextrose 50%-Water Inj 50 Ml Syringe IV 11/17/24 21:04 Q15MIN PRN BG <50 OR BG <70 & pt unresponsive Glucagon 1 mg 10/18/24 21:05 Glucagon Inj 1 Mg Vial IM Q15MIN PRN BG <70, and no IV access Heparin Sodium (Porcine) 5,000 unit 10/17/24 22:00 10/20/24 06:07 Heparin Sod Inj 5000 Unit/Ml Vial SC 10/31/24 21:59 5,000 unit Q8HR S[facility]A Administration Heparin Sodium (Porcine) 200 unit 10/18/24 09:36 10/18/24 19:06 Heparin Sod Inj 1000 Unit/Ml Vial 10 Ml INDWELLCAT 11/01/24 09:44 200 unit Q1H PRN Administration DIALYSIS Piperacillin/Tazobactam/Dextrose 3.375 gm in 50 mls @ 12.5 mls/hr 10/19/24 14:00 10/20/24 06:07 Zosyn IV 10/26/24 13:59 12.5 mls/hr Q8HR S[facility] Administration Protocol Insulin Glargine 25 unit 10/19/24 21:00 10/19/24 21:57 Insulin Glargine (Lantus) 5 Unit/0.05 Ml (Per 5 Units) SC 11/18/24 20:59 Not Given HS [facility] Insulin Human Lispro 0 unit 10/19/24 00:00 10/20/24 06:45 Insulin Lispro (Admelog) 1 Unit/0.01 Ml Unit SC 11/18/24 00:00 Not Given Q6HR [facility] Protocol Pantoprazole Sodium 40 mg 10/19/24 09:00 10/20/24 09:05 Pantoprazole Inj 40 Mg Vial IVP 11/18/24 08:59 40 mg QDAY [facility] Administration Polyethylene Glycol 17 gm 10/19/24 08:37 Polyethylene Glycol 17 Gm Packet PO 11/18/24 08:59 QDAY PRN constipation Sennosides 1 tab 10/19/24 09:00 10/20/24 09:05 Senna/Docusate Sod 1 Tab Tablet PO 11/18/24 08:59 1 tab QDAY [facility] Administration Protocol Sodium Chloride 3 ml 10/17/24 14:41 10/17/24 15:05 Sodium Chloride Rt Gogo 0.9% 3 Ml Nebu INH 11/16/24 14:40 3 ml PRN PRN Administration SOLN Plan 49-year-old female past medical history of diabetes and hypertension, hyperlipidemia admitted to the ICU for further management of her severe acidemia. Nephrology consulted for urgent CRRT for severe acidemia. #KARTHIKEYAN Likely ATN from prerenal acidemia as well as possible interstitial nephritis. Patient has had diminishing urinary output with worsening KARTHIKEYAN. Creatinine trending up as EGFR trends down, urine output decreased to below 100 mL/h. Urine output significantly improved with 1 dose of 2 mg Bumex IV, patient had 4.7 L urinary output over 24 hours. Kidney function continues to worsen, suspect possible ATN, will closely monitor. - Strict I's & O's - Hold on CRRT for today - Avoid nephrotoxins - Renally dose medications #High anion gap metabolic acidosis, improving Due to lactic acidosis from metformin toxicity, DKA. Patient took synjardy in addition to severe dehydration, poor oral intake and diarrhea. Patient received multiple rounds of CRRT with significant improvement. DKA treated by ICU team as per protocol. - Hold CRRT today - Replete electrolytes as needed - Continue to monitor #Acute metabolic encephalopathy #Shock, improving #Troponinemia #Acute hypoxic respiratory failure #Gastritis #Elevated LFTs #DKA #DM2, A1c 9.1 #Septic shock due to UTI Management as per the ICU team. Thank you for allowing us participate in the care of this patient. Plan of care discussed with attending Dr. Harden. Ken Garcia MD PGY?1 Attending Provider Attestation/Addendum Patient seen and examined with resident physician Dr. Colon. Note reviewed, agree with findings and recommendations. Patient currently seen in ICU. Extubated. No need for dialysis. Hold Bumex.
--- NOTE | 2024-10-20 10:14 | ESPR_ITS ---
Documentation for date of: 10/20/24 Subjective Subjective Interval history: Patient is a 49-year-old female past medical history of diabetes and hypertension, hyperlipidemia who is coming to the ED due to progressive weakness and confusion with decreased appetite for the last 2 weeks. Patient was accompanied by son and her who contributed to the story as patient was confused and lethargic with shortness of breath and a GCS of 10 at bedside. Son states that she was recently diagnosed with diabetes and obesity after which she was started on weight loss medication set down 2.5 as well as Synjardy 12.5 and 1000 mg. Son states that patient has had decreased appetite with abdominal pain and nausea and inability to eat with frequent vomiting of the little bit of water she tried to drink progressively over the last 2 weeks when she started the medication. She states that despite the inability to eat she continued to take the medications including the Synjardy. They decided to bring the patient today as she was confused and hard to arouse at home. In the ED patient had a blood pressure of 103/51, pulse 97, RR 30, temperature 97.8, O2 sat 96 on 7 L nasal cannula initially. Due to patient's impending respiratory failure she was intubated with a tidal volume of 450, PEEP of 5 and a respiratory rate of 32. CBC showed a WBC of 10.1, hemoglobin of 14.4 and a platelet count of 328. ABG initially was 6.84 with a CO2 of 20 which barely improved to pH was 6.85 despite 100 mEq amp push of bicarb. At that time an additional 50 mEq of bicarb were pushed and started on a bicarb drip. CMP showed a sodium of 133 with a potassium of 7.4 chloride of 82 and a carbon dioxide less than 10, Anion gap is 41 with a BUN of 97 and a creatinine of 19.5, A1c was 9.1 and a lactic acid of 17. Lipase was 58 and beta-hydroxybutyrate was 5.3 with a Pro-Sunny of 0.99. UA was positive for UTI with leukocyte esterase 20 WBCs and 5 RBCs. Patient received a total of 5 L boluses of LR in the ED 150 pushes of bicarb. She also got albuterol 10 mg inhaled as well as insulin 5 units and calcium gluconate 1 g in the ED for the potassium. Rocuronium and etomidate was used to intubate the patient. Levophed was started as well as fentanyl. Patient will be managed in the ICU for severe acidemia likely secondary to metformin intoxication in the setting of renal failure from severe dehydration. 10/18/2024: Overnight, patient was awake and agitated on fentanyl and was given 2 of versed and started on precedex. She was requiring 0.41 of levophed last night and was started on vasopressor and hydrocorticosone Q6H. She had 6 hours of TABLO overnight with 2 hour TABLO downtime. She had significant urine output of 3.5L, with 1.7L in the last 12 hours. Suspect patient in polyuric phase of ATN. This morning, ABG shows significant improvement in the acidosis. Lactic acid improved to 5.5, and BHB is elevated at 6.8. Since lactic acidosis from metformin toxicity improved, will manage DKA with insulin drip. We will continue IV fluids to keep patient euvolemic. Her pressor requirements have improved down to 0.13 this morning. Regarding sedation, will decrease fentanyl and go up on precedex if need to. 10/19/2024: Anion gap closed overnight and patient was transitioned to 25 units of insulin. She was started on Glucerna tube feeds. Levophed was discontinued around. Urine output overnight was only 100cc. This morning, patient appeared volume overloaded. Bumex 2mg IV was given. Patient titrated off both Precedex and Fentanyl this morning for sedation holiday. Remains on minimal ventilator settings. Acidosis resolved. 10/20/2024: Patient was on Bumex drip yesterday and overnight, and had good urine output approx 4L. This morning, patient is awake and orientated x 3. She complains of headache and abdominal bloating. She has not had a BM yet, will give bowel regimen. Patient passed swallow eval so will start diet. She does have significant weakness, will get PT eval. On exam, she does have some bullae over her left wrist. Labs significant for hypokalemia, alkalosis, and creatinine of 3.2. Will hold off bumex today. Sputum culture did grew Group F Strep, so will continue antibiotics. Will downgrade to floors today. Exam Vital Signs Temp Pulse Resp BP Pulse Ox O2 Del Method O2 Flow Rate 96.8 F 99 20 115/74 100 Room Air 7 10/20/24 08:01 10/20/24 10:01 10/20/24 10:01 10/20/24 10:01 10/20/24 10:01 10/20/24 08:01 10/17/24 15:23 FiO2 30 10/19/24 09:59 Narrative Exam Constitutional: Obese female, awake and orientated x3 HEENT: NCAT. L pterygium noted. Pupils reactive to light. Mucous membranes moist. Respiratory: CTAB bilaterally. Cardiac: RRR. Abdomen: Soft, mild tenderness. MSK: 1+ bilateral LE edema. Bullae noted over L dorsal wrist. Strength U/E 3/5, LE 2/5. Able to spontaneously move all 4 limbs weakly. Skin: Warm, dry, intact. Small scattered petechiae noted L neck/upper chest. Lines: Vásquez. Objective Labs 10/20/24 04:45 10/20/24 04:45 Labs: Laboratory Results - last 24 hr 10/20/24 04:45 WBC 7.1 RBC 4.26 Hgb 12.1 Hct 37.6 MCV 88 MCH 28.4 MCHC 32.2 RDW Std Deviation 46.1 Plt Count 139 L Neut % (Auto) 61 Lymph % (Auto) 30 [place] % (Auto) 6 Eos % (Auto) 1 Baso % (Auto) 1 Neut # (Auto) 4.3 Lymph # (Auto) 2.1 [place] # (Auto) 0.5 Eos # (Auto) 0.1 Baso # (Auto) 0.0 Immature Gran # (Auto) 0.02 H Absolute Nucleated RBC 0.00 Immature Gran % 0 Nucleated RBC % 0 Sodium 140 Potassium 3.1 L D Chloride 97 L Carbon Dioxide 32.9 H Anion Gap 10 BUN 25 H Creatinine 3.2 H D Estim Creat Clear Calc 39.9 L eGFR 17 L BUN/Creatinine Ratio 8 L Glucose 102 D Calculated Osmolality 283 Calcium 8.4 Corrected Calcium 8.9 Phosphorus 1.4 L Magnesium 1.7 Total Bilirubin 0.6 AST 38 H ALT 42 Alkaline Phosphatase 69 Total Protein 5.5 L Albumin 3.4 L Globulin 2.1 L Albumin/Globulin Ratio 1.6 ABG Interpretation ABG results: 10/17/24 10/17/24 10/17/24 14:15 15: 16:14 ABG pH 6.84 L* 6.86 L* 6.76 L* D ABG pCO2 20 L 23 L 35 D ABG pO2 76 L 96 D 261 H D ABG HCO3 3 L* 4 L* 5 L* ABG O2 Saturation 86 L 93 99 H ABG Base Excess -30 L -29 L -30 L 10/17/24 10/17/24 10/18/24 18:11 21:48 02:25 ABG pH 6.83 L* 7.04 L* D 7.19 L* D ABG pCO2 24 L D 22 L 25 L ABG pO2 217 H D 119 H D 87 D ABG HCO3 4 L* 6 L* 9 L* ABG O2 Saturation 99 H 98 97 ABG Base Excess -29 L -23 L -17 L 10/18/24 10/18/24 10/18/24 06:09 10:30 13:30 ABG pH 7.44 D 7.55 H D 7.53 H ABG pCO2 26 L 28 L 36 ABG pO2 69 L 61 L 71 L ABG HCO3 18 L 25 29 H ABG O2 Saturation 97 96 97 ABG Base Excess -5 L 3 6 H 10/18/24 10/18/24 10/18/24 14:25 18:25 21:54 ABG pH 7.39 D 7.40 7.38 ABG pCO2 52 H D 52 H 50 H ABG pO2 67 L 89 D 126 H D ABG HCO3 32 H 32 H 29 H ABG O2 Saturation 94 98 100 H ABG Base Excess 6 H 6 H 3 10/19/24 08:30 ABG pH 7.39 ABG pCO2 47 ABG pO2 68 L D ABG HCO3 29 H ABG O2 Saturation 95 ABG Base Excess 3 Quality Measures Quality Measures VTE prophylaxis Assessment & Plan Assessment Current Active Medications: Generic Name Dose Route Start Last Admin Trade Name Freq PRN Reason Stop Dose Admin Dextrose 25 ml 10/18/24 21:05 Dextrose 50%-Water Inj 50 Ml Syringe IV 11/17/24 21:04 Q15MIN PRN BG 50-70 responsive npo pt Dextrose 50 ml 10/18/24 21:05 Dextrose 50%-Water Inj 50 Ml Syringe IV 11/17/24 21:04 Q15MIN PRN BG <50 OR BG <70 & pt unresponsive Glucagon 1 mg 10/18/24 21:05 Glucagon Inj 1 Mg Vial IM Q15MIN PRN BG <70, and no IV access Heparin Sodium (Porcine) 5,000 unit 10/17/24 22:00 10/20/24 06:07 Heparin Sod Inj 5000 Unit/Ml Vial SC 10/31/24 21:59 5,000 unit Q8HR [facility] Administration Heparin Sodium (Porcine) 200 unit 10/18/24 09:36 10/18/24 19:06 Heparin Sod Inj 1000 Unit/Ml Vial 10 Ml INDWELLCAT 11/01/24 09:44 200 unit Q1H PRN Administration DIALYSIS Ceftriaxone Sodium/Dextrose 1 gm in 50 mls @ 100 mls/hr 10/20/24 10:14 Rocephin/D5w 1gm Iv Premix IV 10/27/24 10:13 Q12HR [facility] Insulin Glargine 25 unit 10/19/24 21:00 10/19/24 21:57 Insulin Glargine (Lantus) 5 Unit/0.05 Ml (Per 5 Units) SC 11/18/24 20:59 Not Given HS [facility] Insulin Human Lispro 0 unit 10/20/24 11:30 Insulin Lispro (Admelog) 1 Unit/0.01 Ml Unit SC 11/19/24 11:29 AC [facility] Protocol Pantoprazole Sodium 40 mg 10/19/24 09:00 10/20/24 09:05 Pantoprazole Inj 40 Mg Vial IVP 11/18/24 08:59 40 mg QDAY [facility] Administration Polyethylene Glycol 17 gm 10/19/24 08:37 Polyethylene Glycol 17 Gm Packet PO 11/18/24 08:59 QDAY PRN constipation Sennosides 1 tab 10/19/24 09:00 10/20/24 09:05 Senna/Docusate Sod 1 Tab Tablet PO 11/18/24 08:59 1 tab QDAY [facility] Administration Protocol Sodium Chloride 3 ml 10/17/24 14:41 10/17/24 15:05 Sodium Chloride Rt Gogo 0.9% 3 Ml Nebu INH 11/16/24 14:40 3 ml PRN PRN Administration SOLN Plan 49-year-old female past medical history of diabetes and hypertension, hyperlipidemia admitted to the ICU for further management of her severe acidemia Neuro #Acute metabolic encephalopathy, resolved Secondary to severe acidemia, UTI CVS #Shock, resolved Likely distributive in the setting of severe acidosis and possibly sepsis from infection. #Troponinemia 0.049, 0.106 downtrending. EKG did not show any obvious ST segment elevations and patient did not complain of any chest pain on presentation Suspect Type II due to decreased renal clearance. Echo does show Grade I diastolic dysfunction. Recommend outpatient cardiac follow up. Respiratory #Acute hypoxic respiratory failure, improved Impending respiratory arrest in the setting of severe acidemia as patient struggled to compensate, resolved GI #Gastritis Likely in the setting of pill induced gastritis as patient was taking medications despite decreased p.o. intake nausea and vomiting - Will discontinue protonix #Elevated LFTs, resolved Renal #KARTHIKEYAN Likely ATN and from prerenal acidemia as well as possible interstitial nephritis - Nephrology Dr. Harden following - Good UOP despite increasing Cr. Will hold off Bumex today. #Hypokalemia Repleted #High anion gap metabolic acidosis, resolved Due to lactic acidosis from metformin toxicity, DKA. Patient took synjardy in addition to severe dehydration, poor oral intake and diarrhea. Resolved with CRRT. Endocrine #DKA, resolved #DM2, A1c 9.1 - Glargine 25 HS + ISS Hematology #Thrombocytopenia, stable #Normocytic anemia, resolved ID #UTI vs Strep Group F Pneumonia Urine culture not ordered, will be sterile as patient already on antibiotics. Patient afebrile, leukocytosis resolved so will discontinue hydrocortisone. Urinalaysis - Blood culture negative - Sputum culture grew Strep Group F, pansensitive - Discontinue Zosyn (10/17-10/20), start ceftriaxone (10/20-10/22) to complete 5 day course of antibiotics Hospital Maintenance: Dispo: Downgrade to Floors, PT eval FEN: carb consistent DVT PPx: Heparin subcu GI PPx: none IV lines: Right IJ Tri flow, peripheral IV, Vásquez Vásquez: 10/17- Code Status: Full code I have reviewed and discussed the patient's care with my attending, Dr. Leandro Rlaph MD PGY-3 Attending Provider Attestation/Addendum Patient seen and examined with resident, agree with above. In brief this is a 49-year-old female admitted to the ICU with acute respiratory failure secondary to severe life-threatening metabolic acidosis. The patient was successfully extubated yesterday and monitored overnight. Yesterday she was having problems with urinary output. She was started on a Bumex drip. She has had an improvement in her urinary output and is currently doing well. Her Bumex drip was stopped in the small hours of the morning. She is awake alert and able to respond to questions. She is [place]er-speaking. Currently she appears stable for downgrade. There are no new changes on her physical exam today. Case discussed with ICU team labs, imaging and records reviewed ~ 35min required for evaluation, exam, review, intervention discussion and formulation of plan of care for this patient.
--- NOTE | 2024-10-20 13:24 | PC.SS ---
Update: Patient extubated on 10-19-24. On 2L nasal cannula. Swallow evaluation passed on dysphagia diet. Patient receiving IV antibiotics. PT evaluation pending. Nephrology consulting. Patient to be downgraded today.
[2024-10-20] MEDS: cefTRIAXone/D5w 1gm IV premix 1 GM/50 ML BAG IV ×2 (13:36→21:18)
--- NOTE | 2024-10-20 17:08 | ESPR_ITS ---
<Statement entered by William Garcia MD - 10/25/24 14:40> I reviewed above note and agree with findings and plans. I have also personally examined the patient with medicine team and went over assessment and plan with medical team including engineer internship and resident physician. Documentation for date of: 10/20/24 Subjective Subjective Interval history: ICU downgrade on 10/20. Admitted for severe lactic acidosis (peak lactate of 21, pH 6.8) that is suspected to be due to recently prescribed metformin. Right IJ trial flow was placed for CRRT for which patient underwent on 10/18 and lactate is down trended to within normal limits and ABG on 10/19 showed pH 7.39. On admission 10/17, ketones elevated with initial blood sugar of 295, K 7.4, HCO3 less than 10, creatinine 19.5. After treatment, K 3.1, creatinine 3.2. Seen and examined at bedside in ICU and patient endorses abdominal pain with some nausea. At bedside, patient was given her first meal and will advance as tolerated. Nephrology following, will hold CRRT at this time. Continue with glargine 25 units daily, IV antibiotics for pneumonia seen on CXR and follow cultures. Exam Vital Signs Temp Pulse Resp BP Pulse Ox O2 Del Method O2 Flow Rate 97.2 F 101 H 18 117/83 100 Nasal Cannula 2 10/20/24 12:00 10/20/24 16:00 10/20/24 16:00 10/20/24 16:00 10/20/24 16:00 10/20/24 12:00 10/20/24 12:00 FiO2 30 10/19/24 09:59 Narrative Exam General: AOx3, tired, able to speak full sentences HEENT: NC/AT, mucous membranes moist, bilateral sclera anicteric Cardiovascular: regular rate and rhythm, S1/S2 present, no murmurs appreciated Pulmonary: clear to auscultation bilaterally, no rales/rhonchi/wheezes Abdominal: Obese, tenderness to palpation, soft, non-distended, no rebound/guarding, normal bowel sounds present Musculoskeletal: normal ROM, no peripheral edema Skin: Bullae over left wrist, warm and dry, intact, no rashes Neuro: CN II-XII intact, no focal deficits Objective Labs 10/21/24 05:02 10/21/24 05:02 Labs: Laboratory Results - last 24 hr 10/20/24 04:45 WBC 7.1 RBC 4.26 Hgb 12.1 Hct 37.6 MCV 88 MCH 28.4 MCHC 32.2 RDW Std Deviation 46.1 Plt Count 139 L Neut % (Auto) 61 Lymph % (Auto) 30 [place] % (Auto) 6 Eos % (Auto) 1 Baso % (Auto) 1 Neut # (Auto) 4.3 Lymph # (Auto) 2.1 [place] # (Auto) 0.5 Eos # (Auto) 0.1 Baso # (Auto) 0.0 Immature Gran # (Auto) 0.02 H Absolute Nucleated RBC 0.00 Immature Gran % 0 Nucleated RBC % 0 Sodium 140 Potassium 3.1 L D Chloride 97 L Carbon Dioxide 32.9 H Anion Gap 10 BUN 25 H Creatinine 3.2 H D Estim Creat Clear Calc 39.9 L eGFR 17 L BUN/Creatinine Ratio 8 L Glucose 102 D Calculated Osmolality 283 Calcium 8.4 Corrected Calcium 8.9 Phosphorus 1.4 L Magnesium 1.7 Total Bilirubin 0.6 AST 38 H ALT 42 Alkaline Phosphatase 69 Total Protein 5.5 L Albumin 3.4 L Globulin 2.1 L Albumin/Globulin Ratio 1.6 ABG Interpretation ABG results: 10/17/24 10/17/24 10/17/24 14:15 15:25 16:14 ABG pH 6.84 L* 6.86 L* 6.76 L* D ABG pCO2 20 L 23 L 35 D ABG pO2 76 L 96 D 261 H D ABG HCO3 3 L* 4 L* 5 L* ABG O2 Saturation 86 L 93 99 H ABG Base Excess -30 L -29 L -30 L 10/17/24 10/17/24 10/18/24 18:11 21:48 02:25 ABG pH 6.83 L* 7.04 L* D 7.19 L* D ABG pCO2 24 L D 22 L 25 L ABG pO2 217 H D 119 H D 87 D ABG HCO3 4 L* 6 L* 9 L* ABG O2 Saturation 99 H 98 97 ABG Base Excess -29 L -23 L -17 L 10/18/24 10/18/24 10/18/24 06:09 10:30 13:30 ABG pH 7.44 D 7.55 H D 7.53 H ABG pCO2 26 L 28 L 36 ABG pO2 69 L 61 L 71 L ABG HCO3 18 L 25 29 H ABG O2 Saturation 97 96 97 ABG Base Excess -5 L 3 6 H 10/18/24 10/18/24 10/18/24 14:25 18:25 21:54 ABG pH 7.39 D 7.40 7.38 ABG pCO2 52 H D 52 H 50 H ABG pO2 67 L 89 D 126 H D ABG HCO3 32 H 32 H 29 H ABG O2 Saturation 94 98 100 H ABG Base Excess 6 H 6 H 3 10/19/24 08:30 ABG pH 7.39 ABG pCO2 47 ABG pO2 68 L D ABG HCO3 29 H ABG O2 Saturation 95 ABG Base Excess 3 Quality Measures Quality Measures VTE prophylaxis Assessment & Plan Assessment Current Active Medications: Generic Name Dose Route Start Last Admin Trade Name Freq PRN Reason Stop Dose Admin Atorvastatin Calcium 40 mg 10/21/24 09:00 Atorvastatin Calcium 20 Mg Tablet PO 11/20/24 08:59 QDAY SOHA Dextrose 25 ml 10/18/24 21:05 Dextrose 50%-Water Inj 50 Ml Syringe IV 11/17/24 21:04 Q15MIN PRN BG 50-70 responsive npo pt Dextrose 50 ml 10/18/24 21:05 Dextrose 50%-Water Inj 50 Ml Syringe IV 11/17/24 21:04 Q15MIN PRN BG <50 OR BG <70 & pt unresponsive Glucagon 1 mg 10/18/24 21:05 Glucagon Inj 1 Mg Vial IM Q15MIN PRN BG <70, and no IV access Heparin Sodium (Porcine) 5,000 unit 10/17/24 22:00 10/20/24 13:36 Heparin Sod Inj 5000 Unit/Ml Vial SC 10/31/24 21:59 5,000 unit Q8HR SOHA Administration Heparin Sodium (Porcine) 200 unit 10/18/24 09:36 10/18/24 19:06 Heparin Sod Inj 1000 Unit/Ml Vial 10 Ml INDWELLCAT 11/01/24 09:44 200 unit Q1H PRN Administration DIALYSIS Ceftriaxone Sodium/Dextrose 1 gm in 50 mls @ 100 mls/hr 10/20/24 10:14 10/20/24 13:36 Rocephin/D5w 1gm Iv Premix IV 10/27/24 10:13 100 mls/hr Q12HR SOHA Administration Insulin Glargine 25 unit 10/19/24 21:00 10/19/24 21:57 Insulin Glargine (Lantus) 5 Unit/0.05 Ml (Per 5 Units) SC 11/18/24 20:59 Not Given HS SOHA Insulin Human Lispro 0 unit 10/20/24 11:30 10/20/24 12:56 Insulin Lispro (Admelog) 1 Unit/0.01 Ml Unit SC 11/19/24 11:29 Not Given AC SOHA Protocol Polyethylene Glycol 17 gm 10/19/24 08:37 Polyethylene Glycol 17 Gm Packet PO 11/18/24 08:59 QDAY PRN constipation Sennosides 1 tab 10/19/24 09:00 10/20/24 09:05 Senna/Docusate Sod 1 Tab Tablet PO 11/18/24 08:59 1 tab QDAY SOHA Administration Protocol Sodium Chloride 3 ml 10/17/24 14:41 10/17/24 15:05 Sodium Chloride Rt Gogo 0.9% 3 Ml Nebu INH 11/16/24 14:40 3 ml PRN PRN Administration SOLN Plan Alexandra Patel is a 49-year-old female with a past medical history of type 2 diabetes mellitus, hypertension, hyperlipidemia who presented on 10/17 with acute encephalopathy on day of admission and decreased appetite 2 weeks prior to admission. Recently diagnosed with diabetes and started on oral medications and medications for weight loss as well, including Zepbound, Synjardy, and metformin. Due to altered mentation she was brought to the ED. #Acute renal failure versus acute tubular necrosis #Anion gap metabolic acidosis secondary to lactic acidosis and ketoacidosis, resolved #Hyperkalemia, resolved #Hypokalemia Presented with creatinine of 19.5, BUN 97, GFR 2, K 7.4. Currently has right IJ Tri flow and underwent 1 session of CRRT. ? Nephrology following, appreciate recommendations ? Avoid nephrotoxic agents when possible ? Renally dose medications ? Monitor electrolytes and replete as needed #Diabetic ketoacidosis, resolved #Type 2 diabetes mellitus, A1c 9.1% ? 25 units glargine daily ? SSI ? Hypoglycemic protocol in place #Acute hypoxic respiratory failure, improving ? Supplemental oxygen as needed ? Wean as tolerated #Urinary tract infection versus group F strep pneumonia CXR shows mild bibasilar pneumonia. UA showed 3+ protein, 1+ glucose, 1+ blood, 5 RBC 20 WBC, LE positive, 7 squamous cells. Previously on Zosyn from 10/17 to 10/20 and will continue on ceftriaxone from 10/20 to 10/22 to complete 5-day course of antibiotics. ? Ceftriaxone 1 g IV BID ? Follow-up cultures #Acute metabolic encephalopathy, resolved #Shock, resolved #Troponinemia, likely demand ischemia/NSTEMI type II #Transaminitis, resolved Hospital management: Disposition: Management of ATN, diabetic ketoacidosis, UTI versus pneumonia Diet: Carb consistent Lines: PIV DVT prophylaxis: Heparin SC every 8 hours GI prophylaxis: Not indicated CODE STATUS: full code ----- Plan discussed with attending physician Dr. Jose Powers MD PGY-1 Internal Medicine
[2024-10-20] MEDS: INSULIN GLARGINE (Lantus) 5 UNIT/0.05 ML (PER 5 UNITS) 25 UNIT SC (21:21)
[2024-10-21] VITALS: PULSE 100
[2024-10-21 04:00] VITALS: PULSE 100
[2024-10-21] MEDS: HEPARIN SOD INJ 5000 UNIT/ML VIAL SC ×3 (05:44→21:37)
[2024-10-21 06:07] LABS: Basophils % (Auto) 1 % (0-2.5); Eosinophils # (Auto) 0.1 Thou/mm3 (0.0-0.5); Eosinophils % (Auto) 2 % (0-10); Hematocrit 40.5 % (36.0-46.0); Immature Granulocytes % (Auto) 0 % (0-0); Immature Granulocytes Auto 0.03 Thou/mm3 (0.00-0.00); Lymphocytes # (Auto) 1.8 Thou/mm3 (1.0-4.8); Lymphocytes % (Auto) 25 % (10-50); Mean Corpuscular HGB Conc 32.1 g/dl (31.0-37.0); Mean Corpuscular Hemoglobin 28.6 pg (25.0-35.0); Mean Corpuscular Volume 89 fL (80-100); Monocytes # (Auto) 0.6 Thou/mm3 (0.0-0.8); Monocytes % (Auto) 8 % (0-12); Neutrophils # (Auto) 4.8 Thou/mm3 (1.8-7.7); Neutrophils % (Auto) 65 % (37-80); Nucleated Red Blood Cell % 0 /100 WBC (0); Platelet Count 195 Thou/mm3 (140-440); RDW Standard Deviation 45.8 fL (36.4-46.3); Red Blood Count 4.54 Miln/mm3 (4.00-5.20); White Blood Count 7.5 Thou/mm3 (3.6-11.0)
[2024-10-21 06:11] LABS: Alanine Aminotransferase 38 U/L (10-49); Albumin, Serum 3.8 gm/dL (3.5-5.0); Albumin/Globulin Ratio 1.6 (1.2-2.2); Alkaline Phosphatase 77 U/L (46-116); Anion Gap 11 (7-16); Aspartate Amino Transferase 31 U/L (0-34); BUN/Creatinine Ratio 11 Ratio (12-20); Bilirubin,Total 0.5 mg/dL (0.3-1.2); Blood Urea Nitrogen 31 mg/dL (9-23); Calcium 8.6 mg/dL (8.3-10.6); Calcium (Corrected) 8.8 mg/dL (8.5-10.1); Carbon Dioxide 37.9 mMol/L (20.0-31.0); Chloride 92 mMol/L (98-107); Creatinine (Component) 2.8 mg/dL (0.6-1.3); Estimated Creatinine Clearance 42.8 mL/min (>60); Globulin 2.4 gm/dL (2.3-3.5); Glucose 123 mg/dL (74-106); Magnesium 1.5 mg/dL (1.6-2.6); Osmolality,Calculated 288 (275-295); Potassium 3.7 mMol/L (3.4-5.1); Sodium 141 mMol/L (136-145); Total Protein 6.2 gm/dL (5.7-8.2); eGFR 20 See Note
[2024-10-21] MEDS: NAPH,KPH MBDB 1 PACKET (1.5 GM) PO (08:14)
[2024-10-21] MEDS: cefTRIAXone/D5w 1gm IV premix 1 GM/50 ML BAG IV ×2 (08:14→20:46)
[2024-10-21] MEDS: POTASSIUM CHLORIDE 20 mEq TABCR PO (08:15)
[2024-10-21] MEDS: SENNA/DOCUSATE SOD 1 TAB TABLET PO (08:15)
[2024-10-21] MEDS: Magnesium Sulfate 4 GM Ivpb 4 GM/50 ML BAG IV (08:16)
--- NOTE | 2024-10-21 09:05 | PD.RESPRO ---
Documentation for date of: 10/21/24 Subjective Subjective Interval history: Ms. Morris is a 49-year-old lady with extensive history of diabetes, hypertension, dyslipidemia-follows up at [facility] was brought to the emergency department with weakness decreased appetite and some confusion going on for the last 2 weeks. As per the ER records patient was recently diagnosed with diabetes and was started on Synjardy, Zepbound and since then has not been feeling well. 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 daily, ondansetron 8 milligrams p.o. as needed In the ED patient had a blood pressure of 103/51, pulse 97, RR 30, temperature 97.8, O2 sat 96 on 7 L nasal cannula initially subsequently due to acute respiratory failure was intubated. Labs showed ABG pH 6.84, pCO2 20. Sodium 133, potassium 7.4, bicarbonate less than 10, anion gap 41, BUN 97, creatinine 19.5, lactic acid 17, AST 44, ALT 53, BNP 503, troponin 0.049, lipase 58, beta hydroxy 5.3, Pro-Sunny 0.99, urinalysis shows UTI In the emergency department patient received 5 L of Ringer lactate and 3 A of bicarb pushes. Patient was started on fluids and subsequently transferred to ICU. Nephrology consultation was requested in need of emergency dialysis due to severe intractable metabolic acidosis, KARTHIKEYAN. In the ICU patient became hypotensive needing pressors. CRRT was initiated after line was placed by ICU team. 10/18/2024 patient currently seen in ICU. On CRRT. Overnight she had some clotting problems so I added heparin with CRRT today.WBC 11.2, hemoglobin 12.3, platelets 223. ICU team at bedside. Patient remains in ICU on pressors. On ventilator. INR 1.1. ABG showing a pH 7.44, pCO2 76, HCO3 18, PO269. Sodium 134, potassium 4.5, bicarbonate 16.9, BUN 29, creatinine 5.1, glucose 294, lactic acid 5.5, calcium 8.5, phosphorus 2.4, magnesium 1.3, AST 66, ALT 65, troponin 0.096, BNP 235, albumin 3.4, triglycerides 296, total cholesterol 214, LDL 134, beta hydroxy 6.1 A1c 9.1 urinalysis shows 3+ protein/1+ glucose urine tox screen negative. Decided to continue with CRRT session today. 10/19/2024: Patient seen and examined in ICU. Patient remains sedated and intubated. Patient has had diminishing urinary output, 1 L total over past 24 hours, with under 100 mL/h past several hours. Patient is significantly volume overloaded. WBC 7.4, hemoglobin 11.5. ABG showing pH 7.38, pCO2 50, pO2 126, bicarb 29. Sodium 134, potassium 4.9, bicarb 20.1, BUN 14, creatinine 2.3, EGFR 25. Lactic acid down to 1.1. Will hold off on CRRT today, give 2 mg Bumex x 1 to see if urinary output improves. 10/20/2024: Patient seen examined in ICU. Patient successfully extubated, but remains significantly fatigued, complains of generalized pain. Urine output significantly improved with 2 mg Bumex x 1, 4.7 L over past 24 hours. Patient remains 10 L net positive for life of stay. Patient noted to have new bullae on the left hand/forearm. Overall edema appears to be mildly improved. No need for additional diuresis today, will continue to monitor. WBC 7.1, hemoglobin 12.1, sodium 140, potassium 3.1, bicarb 13.9, BUN 25, creatinine 3.2, EGFR 12. Kidney function worsened, suspect ATN, will continue to monitor. 10/21/2024: Patient seen and examined at bedside, resting comfortably. Patient remains fatigued, complains of generalized malaise. Pain has improved. 6.3 L urinary output in 24 hours, net +4 L for length of stay. WBC 7.5, hemoglobin 13, sodium 141, potassium 3.7, bicarb 37.9, BUN 31, creatinine 2.8, EGFR 20. Kidney function improving, continue to monitor. Patient does not need additional diuresis at this time. Exam Vital Signs Temp Pulse Resp BP Pulse Ox O2 Del Method O2 Flow Rate 97.2 F 100 18 117/83 100 Nasal Cannula 2 10/20/24 12:00 10/21/24 04:00 10/20/24 16:00 10/20/24 16:00 10/20/24 16:00 10/20/24 12:00 10/20/24 12:00 FiO2 30 10/19/24 09:59 Narrative Exam GENERAL APPEARANCE: Ill-appearing. Awake and alert, lethargic CARDIOVASCULAR: Heart regular, no murmurs LUNGS/CHEST: Chest clear to auscultation. No rales, rhonchi, wheezing ABDOMEN: Soft, nontender, nondistended. No masses. Normal bowel sounds. EXTREMITIES: 2+ edema in the lower extremities. Bullae on the left hand/forearm. SKIN: Skin exam normal without any rashes MUSCULOSKELETAL: in bed NEUROLOGICAL : No focal neurological deficits. Objective Labs 10/22/24 05:26 10/22/24 05:26 Labs: Laboratory Results - last 24 hr 10/21/24 05:02 WBC 7.5 RBC 4.54 Hgb 13.0 Hct 40.5 MCV 89 MCH 28.6 MCHC 32.1 RDW Std Deviation 45.8 Plt Count 195 D Neut % (Auto) 65 Lymph % (Auto) 25 [place] % (Auto) 8 Eos % (Auto) 2 Baso % (Auto) 1 Neut # (Auto) 4.8 Lymph # (Auto) 1.8 [place] # (Auto) 0.6 Eos # (Auto) 0.1 Baso # (Auto) 0.0 Immature Gran # (Auto) 0.03 H Absolute Nucleated RBC 0.00 Immature Gran % 0 Nucleated RBC % 0 Sodium 141 Potassium 3.7 D Chloride 92 L Carbon Dioxide 37.9 H Anion Gap 11 BUN 31 H Creatinine 2.8 H Estim Creat Clear Calc 42.8 L eGFR 20 L BUN/Creatinine Ratio 11 L Glucose 123 H Calculated Osmolality 288 Calcium 8.6 Corrected Calcium 8.8 Phosphorus 2.0 L Magnesium 1.5 L Total Bilirubin 0.5 AST 31 ALT 38 Alkaline Phosphatase 77 Total Protein 6.2 Albumin 3.8 Globulin 2.4 Albumin/Globulin Ratio 1.6 ABG Interpretation ABG results: 10/17/24 10/17/24 10/17/24 14:15 15:25 16:14 ABG pH 6.84 L* 6.86 L* 6.76 L* D ABG pCO2 20 L 23 L 35 D ABG pO2 76 L 96 D 261 H D ABG HCO3 3 L* 4 L* 5 L* ABG O2 Saturation 86 L 93 99 H ABG Base Excess -30 L -29 L -30 L 10/17/24 10/17/24 10/18/24 18:11 21:48 02:25 ABG pH 6.83 L* 7.04 L* D 7.19 L* D ABG pCO2 24 L D 22 L 25 L ABG pO2 217 H D 119 H D 87 D ABG HCO3 4 L* 6 L* 9 L* ABG O2 Saturation 99 H 98 97 ABG Base Excess -29 L -23 L -17 L 10/18/24 10/18/24 10/18/24 06:09 10:30 13:30 ABG pH 7.44 D 7.55 H D 7.53 H ABG pCO2 26 L 28 L 36 ABG pO2 69 L 61 L 71 L ABG HCO3 18 L 25 29 H ABG O2 Saturation 97 96 97 ABG Base Excess -5 L 3 6 H 10/18/24 10/18/24 10/18/24 14:25 18:25 21:54 ABG pH 7.39 D 7.40 7.38 ABG pCO2 52 H D 52 H 50 H ABG pO2 67 L 89 D 126 H D ABG HCO3 32 H 32 H 29 H ABG O2 Saturation 94 98 100 H ABG Base Excess 6 H 6 H 3 10/19/24 08:30 ABG pH 7.39 ABG pCO2 47 ABG pO2 68 L D ABG HCO3 29 H ABG O2 Saturation 95 ABG Base Excess 3 Quality Measures Quality Measures VTE prophylaxis Assessment & Plan Assessment Current Active Medications: Generic Name Dose Route Start Last Admin Trade Name Freq PRN Reason Stop Dose Admin Acetaminophen 650 mg 10/20/24 18:13 Acetaminophen 325 Mg Tablet PO 11/19/24 18:12 Q6HR PRN PAIN OR FEVER > 100.4 Atorvastatin Calcium 40 mg 10/21/24 21:00 Atorvastatin Calcium 20 Mg Tablet PO 11/20/24 08:59 HS SOHA Dextrose 25 ml 10/18/24 21:05 Dextrose 50%-Water Inj 50 Ml Syringe IV 11/17/24 21:04 Q15MIN PRN BG 50-70 responsive npo pt Dextrose 50 ml 10/18/24 21:05 Dextrose 50%-Water Inj 50 Ml Syringe IV 11/17/24 21:04 Q15MIN PRN BG <50 OR BG <70 & pt unresponsive Glucagon 1 mg 10/18/24 21:05 Glucagon Inj 1 Mg Vial IM Q15MIN PRN BG <70, and no IV access Heparin Sodium (Porcine) 5,000 unit 10/17/24 22:00 10/21/24 05:44 Heparin Sod Inj 5000 Unit/Ml Vial SC 10/31/24 21:59 5,000 unit Q8HR SOHA Administration Heparin Sodium (Porcine) 200 unit 10/18/24 09:36 10/18/24 19:06 Heparin Sod Inj 1000 Unit/Ml Vial 10 Ml INDWELLCAT 11/01/24 09:44 200 unit Q1H PRN Administration DIALYSIS Ceftriaxone Sodium/Dextrose 1 gm in 50 mls @ 100 mls/hr 10/20/24 10:14 10/21/24 08:14 Rocephin/D5w 1gm Iv Premix IV 10/27/24 10:13 100 mls/hr Q12HR SOHA Administration Magnesium Sulfate 4 gm in 50 mls @ 12.5 mls/hr 10/21/24 07:20 10/21/24 08:16 Magnesium Sulfate Ivpb IV 10/21/24 11:19 12.5 mls/hr X1 ONE Administration Insulin Glargine 25 unit 10/19/24 21:00 10/20/24 21:21 Insulin Glargine (Lantus) 5 Unit/0.05 Ml (Per 5 Units) SC 11/18/24 20:59 25 unit HS SOHA Administration Insulin Human Lispro 0 unit 10/20/24 11:30 10/21/24 07:34 Insulin Lispro (Admelog) 1 Unit/0.01 Ml Unit SC 11/19/24 11:29 Not Given AC SOHA Protocol Polyethylene Glycol 17 gm 10/19/24 08:37 Polyethylene Glycol 17 Gm Packet PO 11/18/24 08:59 QDAY PRN constipation Sennosides 1 tab 10/19/24 09:00 10/21/24 08:15 Senna/Docusate Sod 1 Tab Tablet PO 11/18/24 08:59 1 tab QDAY SOHA Administration Protocol Sodium Chloride 3 ml 10/17/24 14:41 10/17/24 15:05 Sodium Chloride Rt Gogo 0.9% 3 Ml Nebu INH 11/16/24 14:40 3 ml PRN PRN Administration SOLN Plan 49-year-old female past medical history of diabetes and hypertension, hyperlipidemia admitted to the ICU for further management of her severe acidemia. Nephrology consulted for urgent CRRT for severe acidemia. #KARTHIKEYAN, improving Likely ATN from prerenal acidemia as well as possible interstitial nephritis. Patient has had diminishing urinary output with worsening KARTHIKEYAN. Creatinine trending up as EGFR trends down, urine output decreased to below 100 mL/h. Urine output significantly improved with 1 dose of 2 mg Bumex IV, patient had 4.7 L urinary output over 24 hours. Kidney function continues to worsen, suspect possible ATN, will closely monitor. - Strict I's & O's - Hold on CRRT - Avoid nephrotoxins - Renally dose medications - Monitor daily labs #High anion gap metabolic acidosis, improving Due to lactic acidosis from metformin toxicity, DKA. Patient took synjardy in addition to severe dehydration, poor oral intake and diarrhea. Patient received multiple rounds of CRRT with significant improvement. DKA treated by ICU team as per protocol. Bicarb increasing, up to 37.9. Likely due to contraction alkalosis in the setting of high volume urinary output. Will continue to monitor. - Hold CRRT - Replete electrolytes as needed - Continue to monitor #Acute metabolic encephalopathy #Shock, improving #Troponinemia #Acute hypoxic respiratory failure #Gastritis #Elevated LFTs #DKA #DM2, A1c 9.1 #Septic shock due to UTI Management as per the ICU team. Thank you for allowing us participate in the care of this patient. Plan of care discussed with attending Dr. Harden. eKn Garcia MD PGY?1 Attending Provider Attestation/Addendum Patient seen and examined with resident physician Dr. Colon. Note reviewed, agree with findings and recommendations. Patient extubated and moved out of ICU to medical floor. Good urinary output. Recovering phase of ATN.
--- NOTE | 2024-10-21 11:11 | ESPR_ITS ---
<Statement entered by William Garcia MD - 10/25/24 14:42> I reviewed above note and agree with findings and plans. I have also personally examined the patient with medicine team and went over assessment and plan with medical team including senior internal auditor and resident physician. Documentation for date of: 10/21/24 Subjective Subjective Interval history: No acute overnight events. Seen and examined at bedside and patient was able to tolerate her food without any nausea, vomiting, or abdominal pain. States that she does not feel short of breath and can wean down oxygen as tolerated. Otherwise, vital signs stable, CBC unremarkable, CHEM panel showed resolved hypokalemia, improving renal function, low phosphorus at Mg that were repleted. Per nephro, will hold off on CRRT today and if continued improvements in renal function then may consider removal of triflow catheter within the next 24 to 48 hours. Exam Vital Signs Temp Pulse Resp BP Pulse Ox O2 Del Method O2 Flow Rate 97.2 F 100 18 117/83 100 Nasal Cannula 2 10/20/24 12:00 10/21/24 04:00 10/20/24 16:00 10/20/24 16:00 10/20/24 16:00 10/20/24 12:00 10/20/24 12:00 FiO2 30 10/19/24 09:59 Narrative Exam General: AOx3, tired, able to speak full sentences HEENT: NC/AT, mucous membranes moist, bilateral sclera anicteric Cardiovascular: regular rate and rhythm, S1/S2 present, no murmurs appreciated Pulmonary: clear to auscultation bilaterally, no rales/rhonchi/wheezes Abdominal: Obese, tenderness to palpation, soft, non-distended, no rebound/guarding, normal bowel sounds present Musculoskeletal: normal ROM, no peripheral edema Skin: Bullae over left wrist, warm and dry, intact, no rashes Neuro: CN II-XII intact, no focal deficits Objective Labs 10/21/24 05:02 10/21/24 05:02 Labs: Laboratory Results - last 24 hr 10/21/24 05:02 WBC 7.5 RBC 4.54 Hgb 13.0 Hct 40.5 MCV 89 MCH 28.6 MCHC 32.1 RDW Std Deviation 45.8 Plt Count 195 D Neut % (Auto) 65 Lymph % (Auto) 25 [place] % (Auto) 8 Eos % (Auto) 2 Baso % (Auto) 1 Neut # (Auto) 4.8 Lymph # (Auto) 1.8 [place] # (Auto) 0.6 Eos # (Auto) 0.1 Baso # (Auto) 0.0 Immature Gran # (Auto) 0.03 H Absolute Nucleated RBC 0.00 Immature Gran % 0 Nucleated RBC % 0 Sodium 141 Potassium 3.7 D Chloride 92 L Carbon Dioxide 37.9 H Anion Gap 11 BUN 31 H Creatinine 2.8 H Estim Creat Clear Calc 42.8 L eGFR 20 L BUN/Creatinine Ratio 11 L Glucose 123 H Calculated Osmolality 288 Calcium 8.6 Corrected Calcium 8.8 Phosphorus 2.0 L Magnesium 1.5 L Total Bilirubin 0.5 AST 31 ALT 38 Alkaline Phosphatase 77 Total Protein 6.2 Albumin 3.8 Globulin 2.4 Albumin/Globulin Ratio 1.6 ABG Interpretation ABG results: 10/17/24 10/17/24 10/17/24 14:15 15:25 16:14 ABG pH 6.84 L* 6.86 L* 6.76 L* D ABG pCO2 20 L 23 L 35 D ABG pO2 76 L 96 D 261 H D ABG HCO3 3 L* 4 L* 5 L* ABG O2 Saturation 86 L 93 99 H ABG Base Excess -30 L -29 L -30 L 10/17/24 10/17/24 10/18/24 18:11 21:48 02:25 ABG pH 6.83 L* 7.04 L* D 7.19 L* D ABG pCO2 24 L D 22 L 25 L ABG pO2 217 H D 119 H D 87 D ABG HCO3 4 L* 6 L* 9 L* ABG O2 Saturation 99 H 98 97 ABG Base Excess -29 L -23 L -17 L 10/18/24 10/18/24 10/18/24 06:09 10:30 13:30 ABG pH 7.44 D 7.55 H D 7.53 H ABG pCO2 26 L 28 L 36 ABG pO2 69 L 61 L 71 L ABG HCO3 18 L 25 29 H ABG O2 Saturation 97 96 97 ABG Base Excess -5 L 3 6 H 10/18/24 10/18/24 10/18/24 14:25 18:25 21:54 ABG pH 7.39 D 7.40 7.38 ABG pCO2 52 H D 52 H 50 H ABG pO2 67 L 89 D 126 H D ABG HCO3 32 H 32 H 29 H ABG O2 Saturation 94 98 100 H ABG Base Excess 6 H 6 H 3 10/19/24 08:30 ABG pH 7.39 ABG pCO2 47 ABG pO2 68 L D ABG HCO3 29 H ABG O2 Saturation 95 ABG Base Excess 3 Quality Measures Quality Measures VTE prophylaxis Assessment & Plan Assessment Current Active Medications: Generic Name Dose Route Start Last Admin Trade Name Freq PRN Reason Stop Dose Admin Acetaminophen 650 mg 10/20/24 18:13 Acetaminophen 325 Mg Tablet PO 11/19/24 18:12 Q6HR PRN PAIN OR FEVER > 100.4 Atorvastatin Calcium 40 mg 10/21/24 21:00 Atorvastatin Calcium 20 Mg Tablet PO 11/20/24 08:59 HS SOHA Dextrose 25 ml 10/18/24 21:05 Dextrose 50%-Water Inj 50 Ml Syringe IV 11/17/24 21:04 Q15MIN PRN BG 50-70 responsive npo pt Dextrose 50 ml 10/18/24 21:05 Dextrose 50%-Water Inj 50 Ml Syringe IV 11/17/24 21:04 Q15MIN PRN BG <50 OR BG <70 & pt unresponsive Glucagon 1 mg 10/18/24 21:05 Glucagon Inj 1 Mg Vial IM Q15MIN PRN BG <70, and no IV access Heparin Sodium (Porcine) 5,000 unit 10/17/24 22:00 10/21/24 05:44 Heparin Sod Inj 5000 Unit/Ml Vial SC 10/31/24 21:59 5,000 unit Q8HR SOHA Administration Heparin Sodium (Porcine) 200 unit 10/18/24 09:36 10/18/24 19:06 Heparin Sod Inj 1000 Unit/Ml Vial 10 Ml INDWELLCAT 11/01/24 09:44 200 unit Q1H PRN Administration DIALYSIS Ceftriaxone Sodium/Dextrose 1 gm in 50 mls @ 100 mls/hr 10/20/24 10:14 10/21/24 08:14 Rocephin/D5w 1gm Iv Premix IV 10/27/24 10:13 100 mls/hr Q12HR SOHA Administration Magnesium Sulfate 4 gm in 50 mls @ 12.5 mls/hr 10/21/24 07:20 10/21/24 08:16 Magnesium Sulfate Ivpb IV 10/21/24 11:19 12.5 mls/hr X1 ONE Administration Insulin Glargine 25 unit 10/19/24 21:00 10/20/24 21:21 Insulin Glargine (Lantus) 5 Unit/0.05 Ml (Per 5 Units) SC 11/18/24 20:59 25 unit HS SOHA Administration Insulin Human Lispro 0 unit 10/20/24 11:30 10/21/24 07:34 Insulin Lispro (Admelog) 1 Unit/0.01 Ml Unit SC 11/19/24 11:29 Not Given AC SOHA Protocol Polyethylene Glycol 17 gm 10/19/24 08:37 Polyethylene Glycol 17 Gm Packet PO 11/18/24 08:59 QDAY PRN constipation Sennosides 1 tab 10/19/24 09:00 10/21/24 08:15 Senna/Docusate Sod 1 Tab Tablet PO 11/18/24 08:59 1 tab QDAY SOHA Administration Protocol Sodium Chloride 3 ml 10/17/24 14:41 10/17/24 15:05 Sodium Chloride Rt Gogo 0.9% 3 Ml Nebu INH 11/16/24 14:40 3 ml PRN PRN Administration SOLN Plan Alexandra Patel is a 49-year-old female with a past medical history of type 2 diabetes mellitus, hypertension, hyperlipidemia who presented on 10/17 with acute encephalopathy on day of admission and decreased appetite 2 weeks prior to admission. Recently diagnosed with diabetes and started on oral medications and medications for weight loss as well, including Zepbound, Synjardy, and metformin. Due to altered mentation she was brought to the ED. #Acute renal failure versus acute tubular necrosis #Anion gap metabolic acidosis secondary to lactic acidosis and ketoacidosis, resolved #Hyperkalemia, resolved #Hypokalemia, resolved #Hypophosphatemia #Hypomagnesemia Presented with creatinine of 19.5, BUN 97, GFR 2, K 7.4. Currently has right IJ Tri flow and underwent 1 session of CRRT. Will possibly remove within next 24- 48 hours if renal function continues to improve. ? Nephrology following, appreciate recommendations ? Avoid nephrotoxic agents when possible ? Renally dose medications ? Monitor electrolytes and replete as needed #Diabetic ketoacidosis, resolved #Type 2 diabetes mellitus, A1c 9.1% ? 25 units glargine daily ? SSI ? Hypoglycemic protocol in place #Acute hypoxic respiratory failure, improving ? Supplemental oxygen as needed ? Wean as tolerated #Urinary tract infection versus group F strep pneumonia CXR shows mild bibasilar pneumonia. UA showed 3+ protein, 1+ glucose, 1+ blood, 5 RBC 20 WBC, LE positive, 7 squamous cells. Previously on Zosyn from 10/17 to 10/20 and will continue on ceftriaxone from 10/20 to 10/22 to complete 5-day course of antibiotics. ? Ceftriaxone 1 g IV BID ? Follow-up cultures #Acute metabolic encephalopathy, resolved #Shock, resolved #Troponinemia, likely demand ischemia/NSTEMI type II #Transaminitis, resolved Hospital management: Disposition: Management of ATN, diabetic ketoacidosis, UTI versus pneumonia Diet: Carb consistent Lines: PIV DVT prophylaxis: Heparin SC every 8 hours GI prophylaxis: Not indicated CODE STATUS: full code ----- Plan discussed with attending physician Dr. Jose Powers MD PGY-1 Internal Medicine
[2024-10-21] MEDS: INSULIN LISPRO (AdmeLOG) 1 UNIT/0.01 ML UNIT SC (12:01)
[2024-10-21 13:38] VITALS: BMI 13.0
[2024-10-21] MEDS: ATORVASTATIN CALCIUM 20 MG TABLET 40 MG PO (20:45)
[2024-10-21] MEDS: INSULIN GLARGINE (Lantus) 5 UNIT/0.05 ML (PER 5 UNITS) 25 UNIT SC (20:49)
[2024-10-22 00:35] VITALS: PULSE 97
[2024-10-22 03:49] VITALS: PULSE 99
[2024-10-22] MEDS: HEPARIN SOD INJ 5000 UNIT/ML VIAL SC (05:22)
[2024-10-22 06:27] LABS: Basophils # (Auto) 0.1 Thou/mm3 (0.0-0.2); Basophils % (Auto) 1 % (0-2.5); Eosinophils # (Auto) 0.2 Thou/mm3 (0.0-0.5); Eosinophils % (Auto) 2 % (0-10); Hematocrit 37.7 % (36.0-46.0); Hemoglobin 12.7 g/dL (12.0-16.0); Immature Granulocytes % (Auto) 1 % (0-0); Lymphocytes # (Auto) 2.4 Thou/mm3 (1.0-4.8); Lymphocytes % (Auto) 30 % (10-50); Mean Corpuscular HGB Conc 33.7 g/dl (31.0-37.0); Mean Corpuscular Hemoglobin 28.3 pg (25.0-35.0); Mean Corpuscular Volume 84 fL (80-100); Monocytes # (Auto) 0.8 Thou/mm3 (0.0-0.8); Monocytes % (Auto) 11 % (0-12); Neutrophils # (Auto) 4.4 Thou/mm3 (1.8-7.7); Neutrophils % (Auto) 55 % (37-80); Nucleated Red Blood Cell % 0 /100 WBC (0); Platelet Count 227 Thou/mm3 (140-440); RDW Standard Deviation 42.9 fL (36.4-46.3); Red Blood Count 4.49 Miln/mm3 (4.00-5.20); White Blood Count 7.9 Thou/mm3 (3.6-11.0)
[2024-10-22 06:38] LABS: Alanine Aminotransferase 29 U/L (10-49); Albumin, Serum 3.7 gm/dL (3.5-5.0); Albumin/Globulin Ratio 1.5 (1.2-2.2); Alkaline Phosphatase 73 U/L (46-116); Anion Gap 12 (7-16); Aspartate Amino Transferase 28 U/L (0-34); BUN/Creatinine Ratio 14 Ratio (12-20); Bilirubin,Total 0.4 mg/dL (0.3-1.2); Blood Urea Nitrogen 23 mg/dL (9-23); Calcium 8.6 mg/dL (8.3-10.6); Calcium (Corrected) 8.8 mg/dL (8.5-10.1); Carbon Dioxide 34.2 mMol/L (20.0-31.0); Chloride 93 mMol/L (98-107); Creatinine (Component) 1.7 mg/dL (0.6-1.3); Estimated Creatinine Clearance 75.5 mL/min (>60); Globulin 2.4 gm/dL (2.3-3.5); Glucose 92 mg/dL (74-106); Magnesium 1.7 mg/dL (1.6-2.6); Osmolality,Calculated 281 (275-295); Phosphorous 2.4 mg/dL (2.4-5.1); Sodium 139 mMol/L (136-145); Total Protein 6.1 gm/dL (5.7-8.2); eGFR 37 See Note
[2024-10-22 08:00] VITALS: PULSE 100
[2024-10-22 08:50] VITALS: BMI 44.9
[2024-10-22] MEDS: cefTRIAXone/D5w 1gm IV premix 1 GM/50 ML BAG IV (09:23)
[2024-10-22] MEDS: SENNA/DOCUSATE SOD 1 TAB TABLET PO (09:23)
[2024-10-22] MEDS: POTASSIUM CHLORIDE 20 mEq TABCR 40 MEQ PO (09:23)
[2024-10-22] MEDS: Magnesium Sulfate 2 GM Ivpb 2 GM/50 ML BAG IV (09:59)
--- NOTE | 2024-10-22 10:04 | PC.SS ---
Addendum entered by Deena Noel 10/22/24 10:46: [facility] booked on [facility], pending insurance auth for DME Original Note: SS was made aware pt is needing a 3in1 BSC and rollator walker for DC home. SS submitted referral vi [facility] pending responses.
[2024-10-22 11:05] VITALS: BMI 14.0
--- NOTE | 2024-10-22 11:41 | ESPR_ITS ---
Documentation for date of: 10/22/24 Subjective Subjective Interval history: Ms. Morris is a 49-year-old lady with extensive history of diabetes, hypertension, dyslipidemia-follows up at [facility] was brought to the emergency department with weakness decreased appetite and some confusion going on for the last 2 weeks. As per the ER records patient was recently diagnosed with diabetes and was started on Synjardy, Zepbound and since then has not been feeling well. 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 daily, ondansetron 8 milligrams p.o. as needed In the ED patient had a blood pressure of 103/51, pulse 97, RR 30, temperature 97.8, O2 sat 96 on 7 L nasal cannula initially subsequently due to acute respiratory failure was intubated. Labs showed ABG pH 6.84, pCO2 20. Sodium 133, potassium 7.4, bicarbonate less than 10, anion gap 41, BUN 97, creatinine 19.5, lactic acid 17, AST 44, ALT 53, BNP 503, troponin 0.049, lipase 58, beta hydroxy 5.3, Pro-Sunny 0.99, urinalysis shows UTI In the emergency department patient received 5 L of Ringer lactate and 3 A of bicarb pushes. Patient was started on fluids and subsequently transferred to ICU. Nephrology consultation was requested in need of emergency dialysis due to severe intractable metabolic acidosis, KARTHIKEYAN. In the ICU patient became hypotensive needing pressors. CRRT was initiated after line was placed by ICU team. 10/18/2024 patient currently seen in ICU. On CRRT. Overnight she had some clotting problems so I added heparin with CRRT today.WBC 11.2, hemoglobin 12.3, platelets 223. ICU team at bedside. Patient remains in ICU on pressors. On ventilator. INR 1.1. ABG showing a pH 7.44, pCO2 76, HCO3 18, PO269. Sodium 134, potassium 4.5, bicarbonate 16.9, BUN 29, creatinine 5.1, glucose 294, lactic acid 5.5, calcium 8.5, phosphorus 2.4, magnesium 1.3, AST 66, ALT 65, troponin 0.096, BNP 235, albumin 3.4, triglycerides 296, total cholesterol 214, LDL 134, beta hydroxy 6.1 A1c 9.1 urinalysis shows 3+ protein/1+ glucose urine tox screen negative. Decided to continue with CRRT session today. 10/22/2024 patient currently seen in medical floor. Resting comfortably. Creatinine markedly improved. Good urine output. Out of ICU. Will DC Vásquez and dialysis catheter. Discharge planning per primary team Review of Systems Review of Systems Narrative Review of Systems: CONSTITUTIONAL: Patient denies any fever, chills. HEENT: Denies any visual disturbances or hearing problems. CARDIOVASCULAR: Patient denies any chest pain, shortness of breath, swelling in the lower extremities. PULMONARY: Patient denies any shortness of breath, cough. GASTROINTESTINAL: Patient denies any abdominal pain, constipation, nausea, vomiting, diarrhea. GENITOURINARY: Patient denies any urinary symptoms of burning or frequency or hematuria, denies any form in the urine. SKIN: Denies any rash. MUSCULOSKELETAL: Denies any muscular skeletal problems of joint pains. NEUROLOGICAL: Denies any neurological problems of strokes, seizures or confusion. Denies any memory problems. PSYCHIATRIC: Denies any depression or anxiety. LYMPHATICS : No lymphadenopathy Exam Vital Signs Temp Pulse Resp BP Pulse Ox O2 Del Method O2 Flow Rate 36.2 C 100 18 117/83 100 Nasal Cannula 2 10/20/24 12:00 10/22/24 08:00 10/20/24 16:00 10/20/24 16:00 10/20/24 16:00 10/20/24 12:00 10/20/24 12:00 FiO2 30 10/19/24 09:59 Narrative Exam GENERAL APPEARANCE: Currently seen in medical floor CARDIOVASCULAR: Heart regular, no murmurs LUNGS/CHEST: Chest clear to auscultation. No rales, rhonchi, wheezing ABDOMEN: Soft, nontender, nondistended. No masses. Normal bowel sounds. EXTREMITIES: Marked improvement in edema SKIN: Skin exam normal without any rashes MUSCULOSKELETAL: in bed NEUROLOGICAL : No focal neurological deficits. Objective Labs 10/22/24 05:26 10/22/24 05:26 Labs: Laboratory Results - last 24 hr 10/22/24 05:26 WBC 7.9 RBC 4.49 Hgb 12.7 Hct 37.7 MCV 84 MCH 28.3 MCHC 33.7 RDW Std Deviation 42.9 Plt Count 227 D Neut % (Auto) 55 Lymph % (Auto) 30 [place] % (Auto) 11 Eos % (Auto) 2 Baso % (Auto) 1 Neut # (Auto) 4.4 Lymph # (Auto) 2.4 [place] # (Auto) 0.8 Eos # (Auto) 0.2 Baso # (Auto) 0.1 Immature Gran # (Auto) 0.10 H Absolute Nucleated RBC 0.00 Immature Gran % 1 H Nucleated RBC % 0 Sodium 139 Potassium 3.0 L D Chloride 93 L Carbon Dioxide 34.2 H Anion Gap 12 BUN 23 Creatinine 1.7 H D Estim Creat Clear Calc 75.5 eGFR 37 L BUN/Creatinine Ratio 14 Glucose 92 Calculated Osmolality 281 Calcium 8.6 Corrected Calcium 8.8 Phosphorus 2.4 Magnesium 1.7 Total Bilirubin 0.4 AST 28 ALT 29 Alkaline Phosphatase 73 Total Protein 6.1 Albumin 3.7 Globulin 2.4 Albumin/Globulin Ratio 1.5 ABG Interpretation ABG results: 10/17/24 10/17/24 10/17/24 14:15 15:25 16:14 ABG pH 6.84 L* 6.86 L* 6.76 L* D ABG pCO2 20 L 23 L 35 D ABG pO2 76 L 96 D 261 H D ABG HCO3 3 L* 4 L* 5 L* ABG O2 Saturation 86 L 93 99 H ABG Base Excess -30 L -29 L -30 L 10/17/24 10/17/24 10/18/24 18:11 21:48 02:25 ABG pH 6.83 L* 7.04 L* D 7.19 L* D ABG pCO2 24 L D 22 L 25 L ABG pO2 217 H D 119 H D 87 D ABG HCO3 4 L* 6 L* 9 L* ABG O2 Saturation 99 H 98 97 ABG Base Excess -29 L -23 L -17 L 10/18/24 10/18/24 10/18/24 06:09 10:30 13:30 ABG pH 7.44 D 7.55 H D 7.53 H ABG pCO2 26 L 28 L 36 ABG pO2 69 L 61 L 71 L ABG HCO3 18 L 25 29 H ABG O2 Saturation 97 96 97 ABG Base Excess -5 L 3 6 H 10/18/24 10/18/24 10/18/24 14:25 18:25 21:54 ABG pH 7.39 D 7.40 7.38 ABG pCO2 52 H D 52 H 50 H ABG pO2 67 L 89 D 126 H D ABG HCO3 32 H 32 H 29 H ABG O2 Saturation 94 98 100 H ABG Base Excess 6 H 6 H 3 10/19/24 08:30 ABG pH 7.39 ABG pCO2 47 ABG pO2 68 L D ABG HCO3 29 H ABG O2 Saturation 95 ABG Base Excess 3 Assessment & Plan Assessment and plan (1) Acute renal failure: Status: Acute Assessment and plan: Acute renal failure secondary to prerenal azotemia-uncontrolled diabetes versus Jardiance, metformin, Celebrex, lisinopril, Lasix. Patient received significant amount of fluids. She has good urinary output. Due to acidosis and a significant azotemia patient did receive 3 dialysis sessions and improved markedly. Came off dialysis. Will DC dialysis catheter and Vásquez and discharge. Plan of care discussed with primary team (2) Acute hyperkalemia: Status: Acute Assessment and plan: Patient's potassium 7.4 probably related to KARTHIKEYAN/severe metabolic acidosis. after 3 dialysis sessions potassium improved. (3) Acidosis: Status: Acute Assessment and plan: Intractable metabolic acidosis-for DKA/renal failure/med related (Jardiance and metformin) patient received 3 dialysis treatments and improved. Gap closed. (4) DKA (diabetic ketoacidosis): Status: Acute Assessment and plan: DKA resolved (5) Acute hypoxic respiratory failure: Status: Acute Assessment and plan: Patient extubated. Additional Assessment & Plan Additional Plan: Renal hayden stable for discharge Quality - progress note Quality Measures Quality Measures: VTE prophylaxis Reason for Continued Stay Reason for Continued Stay: further monitoring Procedures Arterial Line Size (Gauge): 20
[2024-10-22 12:00] VITALS: PULSE 102
--- NOTE | 2024-10-22 12:50 | ESDS_ITS ---
<Statement entered by William Garcia MD - 10/27/24 15:44> I reviewed above note and agree with findings and plans. I have also personally examined the patient with medicine team and went over assessment and plan with medical team including international flight attendant and resident physician. Planned Discharge Date 10/22/24 DS: Providers Provider Date of admission: 10/17/24 15:41 Primary care physician: Jossue Pollack PA-C Admitting Provider: Cindy Reeves MD Attending Provider on Admission: Cindy Reeves MD Consults: 10/17/24 15:50 Consult to Nephrology Stat Comment: emergency dialysis Consulting Provider: Mateus Harden 10/19/24 19:16 Referral Speech Therapy Routine Comment: 10/20/24 10:14 PT [Referral Physical Therapy] Routine Comment: Physician Instructions: Attending Provider on DC: William Garcia MD Discharging Provider: William Garcia MD DS: Diagnosis Problem List Completed Was Problem List Reviewed/Reconciled?: Yes Hospital Course Hospital Course Hospital course: 49-year-old female with past medical history of DM2, hypertension, and hyperlipidemia was admitted to the ICU on 10/17/2024 after coming in with altered mental status, progressive weakness, decreased appetite, and shortness of breath. At this time patient presented with severe acidosis and was intubated. She also required vasopressors in the setting of shock and she did have some elevated troponins which later on down trended. Patient was also found to have an KARTHIKEYAN and found to have metformin toxicity which was likely causing patient's lactic acidosis. Patient remained in the ICU and developed polyuria for which she was started on IV fluids. At this time nephrology will see the patient and started the patient on CRRT given her acidosis. Patient's anion gap closed and she was transition to 25 units of glargine and she was taken off vasopressors on 10/19/2024. Patient was successfully extubated on 10/19/2024. Patient was downgraded back to the medical floors on 10/20/2024 with that she was stable enough for medical floors. Patient's sputum did grow group F Streptococcus and blood cultures remain negative throughout the hospital stay. At this time patient was still having improvement in kidney function but still having a lot of urine output. On the day of discharge patient was having less urine output and was AO x 3 and nephrology stated that patient was stable enough to be discharged. At the time of discharge patient was stable enough to be discharged home with home health. Discharge plan: Please follow-up with primary care physician within 1 week upon discharge Please follow-up with nephrology as outpatient within 1 to 2 weeks after discharge You have been started on insulin glargine 25 units at bedtime We have stopped your Synjardy as it is contraindicated due to having lactic acidosis We have stopped celecoxib due to CKD We have held your tramadol and codeine/guaifenesin RT follow-up with primary care physician Please continue taking all other home medications as prescribed Please come back to the ER symptoms persist or worsen Problem list: # Acute tubular necrosis, improving # High anion gap metabolic acidosis #Lactic acidosis # DKA #Hyperkalemia, resolved #Hypokalemia, resolved #Hypophosphatemia #Hypomagnesemia #Type 2 diabetes mellitus, A1c 9.1% #Acute hypoxic respiratory failure, improving #group F strep pneumonia #Acute metabolic encephalopathy, resolved #Shock, resolved #Troponinemia, likely demand ischemia/NSTEMI type II #Transaminitis, resolved Case disclosed with Attending Dr. Jose Díaz PGY1 Disclaimer: Even though this this note was dictated by speech recognition and even though it was carefully revised there may still be minor errors in instructor product inspection due to voice recognition software. Status at Discharge Overall status at discharge: patient is progressing back to baseline Time Spent with Patient Time attestation: Total time spent providing and/or coordinating discharge services:>35 min Time spent: Greater than 30 minutes Home Health Home Health Referral Orders: 10/22/24 10:07 Home Health Referral Routine Reason For Exam: PT Home-Bound The patient must either because of illness or injury, need the aid of supportive devices such as crutches, canes, wheelchairs, and walkers; the use of special tra nsportation; or the assistance of another person in order to leave their place of residence; OR have a condition such that leaving his or her home is medically contraindicated. In addition, the patient also meets the following criteria: patient is normally unable to leave the home and leaving home requires considerable taxing effort. Addendum to Home Health Certification Practitioner's Certification: I certify that the patient has been under my care in the hospital and the care of attending physician (see below). We had a [id number] encounter on (see date below). My clinical findings indicate that the patient is home bound per the above criteria and the Home Health Services noted in these orders are medically necessary. The primary reason for the [id number] encounter is related to the fact that the patient requires home health services. Date Certifying Kneh-hj-Wsak Physician Encounter: 10/17/24 Physician's Name who will Assume Oversight for Services: Jossue Pollack Physician's Phone No.who will Assume Oversight for Service: DIRECTOR OF STAFF DEVELOPMENT - Community Resources: No PT to Evaluate: Yes PT to evaluate and provide a treatmnet plan to increase patient's mobility and strength. Wound Care: No IV Therapy: No RN Safety Evaluation: Yes RN to evaluate and create a plan of care that will produce positive outcomes. Palliative Treatment: No Palliative treatment and evaluate the need for hospice. Home Health Aide - Personal Care: No Home Health Aide to assist with any ADL's. Exam Vital Signs Temp Pulse Resp BP Pulse Ox O2 Del Method O2 Flow Rate 97.2 F 100 18 117/83 100 Nasal Cannula 2 10/20/24 12:00 10/22/24 08:00 10/20/24 16:00 10/20/24 16:10/20/24 16:10/20/24 12:00 10/20/24 12:00 FiO2 30 10/19/24 09:59 Narrative Exam General: A/O x3, no acute distress Eyes: PERRL, EOMI. Anicteric, vision grossly intact. Ears: No ear pain, no ear discharge, Hearing grossly intact. Nose: No nasal discharge. Mouth/Throat: Moist mucous membranes, no redness, no lesions. Neck: Neck supple, non-tender, no cervical lymphadenopathy. Lungs: Clear DARNELL to auscultation and percussion, No accessory muscle use. Cardio: Normal S1/S2, regular rhythm, no murmurs, no JVD Abdomen: Soft, non-tender, no palpable masses, peristalsis present, no guarding or rebound. Extremities: Symmetrical, no significant deformities, trace peripheral edema , non-tender, peripheral pulses presents. Skin: No rashes, no lesions, warm to touch. Neuro: No focal neurological deficits. motor and sensory intact Psych: Cooperative, appropriate mood and effect. Discharge Plan Plan Patient Disposition: Home w/HOME HEALTH Care Plan Goals: Jordon christine con moyer doctor de cabezera en 1 semana. Jordon christine con el especialista de los rinones en jadyn semana Ya empezo insulina 25 unidades en la noche Ya paramos moyer synjardy porque es contradictorio con moyer condicion Tambien pare de efra celecoxib por bunny rinones Pusimos en pausa moyer tramadol y codeine/guaifenesin hasta que tenga christine con moyer doctor de cabezera Siga tomando moyer medicina que avila en casa regularlmente Por favor regrese a emergencias si moyer simptomas son peores Please follow-up with primary care physician within 1 week upon discharge Please follow-up with nephrology as outpatient within 1 to 2 weeks after discharge You have been started on insulin glargine 25 units at bedtime We have stopped your Synjardy as it is contraindicated due to having lactic acidosis We have stopped celecoxib due to CKD We have held your tramadol and codeine/guaifenesin RT follow-up with primary care physician Please continue taking all other home medications as prescribed Please come back to the ER symptoms persist or worsen Prescriptions/Referrals Prescriptions/Med Rec: New insulin glargine U-300 conc 300 unit/mL (1.5 mL) insulin pen 25 unit subcut HS Qty: 4.5 0RF (DME) pen needle, diabetic [Pen Needle] 29 gauge x 1/2 needle See Rx Instructions .Route Qty: 100 0RF Rx Instructions: As directed (DME) blood-glucose meter Kit See Rx Instructions .Route Qty: 1 0RF Rx Instructions: As directed (DME) lancet-gluc exnjn-nunehm-aaaer Kit See Rx Instructions .Route Qty: 1 0RF Rx Instructions: As directed (DME) Blood Glucose Test Strip See Rx Instructions .Route Qty: 50 0RF Rx Instructions: As directed Continued furosemide 20 mg tablet 20 mg PO BID lisinopril 10 mg tablet 10 mg PO QDAY diphenoxylate-atropine [Lomotil] 2.5-0.025 mg tablet 2 tab PO QID ondansetron 8 mg tablet,disintegrating 8 mg PO TID Zepbound 2.5 mg/0.5 mL pen injector 2.5 mg subcut QWEEK Rx Instructions: for 4 weeks Changed atorvastatin 40 mg tablet 40 mg PO HS Qty: 30 0RF Held codeine-guaifenesin 10-100 mg/5 mL liquid 10 ml PO Q6H PRN (Reason: cough) Qty: 118 0RF Hold Instructions: Resume on 10/29/24. hold until follow up with PCP tramadol 50 mg tablet 50 mg PO BID Hold Instructions: Resume on 10/29/24. Please hold until follow up with primary care physician Discontinued celecoxib 200 mg capsule 200 mg PO BID Synjardy XR 12.5-1,000 mg tablet, IR - ER, biphasic 24hr 2 tab PO QDAY Referrals: Jossue Pollack PA-C [Primary Care Provider] - Patient/Caregiver Discharge Instructions Other Discharge Activity Instructions:: Please follow-up with primary care physician within 1 week upon discharge Please follow-up with nephrology as outpatient within 1 to 2 weeks after discharge You have been started on insulin glargine 25 units at bedtime We have stopped your Synjardy as it is contraindicated due to having lactic acidosis We have stopped celecoxib due to CKD We have held your tramadol and codeine/guaifenesin RT follow-up with primary care physician Please continue taking all other home medications as prescribed Please come back to the ER symptoms persist or worsen Education Materials: Diabetic Ketoacidosis Print Language: Luxembourgish Stand Alone Forms: Judith Award Info., Patient Portal Info Letter Discharge Order Discharge Orders: Discharge (Routine); Ordered 10/22/24 Ordered By: Jayme Díaz Quality Discharge Quality Measures VTE prophylaxis
--- NOTE | 2024-10-22 13:30 | PC.SS ---
SS spoke to pt son Edward TUTTLE, son, , pt is ready for DC, DME ordered through [facility] and will be delivered to home between 2-4pm. Edward stated he spoke to them already.
--- NOTE | 2024-10-23 10:07 | PC.CC ---
Addendum entered by Ina George RN 10/23/24 16:11: [facility] accepted [facility] pt. [facility]ed [facility]. Start of care date is 10/26/24. Original Note: HH referral sent on [facility]. Awaiting responses. Pending start of care date.
== END 2024-10-22 15:53 | disposition home health service (06) | DRG 720 ==
LOC: SERX 15:11 → SERHOLD 15:56 → S2SX 17:26 → S3NX 10-20 16:46
PROVIDERS: Registered Nurse General Practice; Student in an Organized Health Care Education/Training Program; Admitting Provider Internal Medicine; Emergency Provider Family Medicine; PCP Physician Assistant; Visit Provider Internal Medicine
DX: A41.9 Sepsis, unspecified organism (principal); E66.01 Morbid (severe) obesity due to excess calories; I10 Essential (primary) hypertension; E78.5 Hyperlipidemia, unspecified; E87.5 Hyperkalemia; G93.41 Metabolic encephalopathy; R65.21 Severe sepsis with septic shock; J96.01 Acute respiratory failure with hypoxia; K29.70 Gastritis, unspecified, without bleeding; T38.3X5A Adverse effect of insulin and oral hypoglycemic [antidiabetic] drugs, initial encounter; E11.10 Type 2 diabetes mellitus with ketoacidosis without coma; N39.0 Urinary tract infection, site not specified; E86.0 Dehydration; R74.01 Elevation of levels of liver transaminase levels; N17.9 Acute kidney failure, unspecified; R79.89 Other specified abnormal findings of blood chemistry; Z68.42 Body mass index [BMI] 45.0-49.9, adult; D64.9 Anemia, unspecified; D69.6 Thrombocytopenia, unspecified; E11.649 Type 2 diabetes mellitus with hypoglycemia without coma; E83.39 Other disorders of phosphorus metabolism; E83.42 Hypomagnesemia; E87.4 Mixed disorder of acid-base balance; E87.6 Hypokalemia; J15.4 Pneumonia due to other streptococci; N17.0 Acute kidney failure with tubular necrosis; Z79.4 Long term (current) use of insulin; Z79.899 Other long term (current) drug therapy
CPT/HCPCS: 36415; 36600; 71045; 80053; 80061; 80069; 80074; 80307; 81001; 82010; 82550; 82803; 83036; 83605; 83615; 83690; 83735; 83880; 84100; 84145; 84484; 85025; 85610; 85730; 87040; 87077; 87081; 87186; 87205; 92526; 92610; 93005; 93225; 93306; 94002; 94003; 94644; 96361; 96374; 97162; 99291; J0612; J0696; J1643; J1644; J1720; J1815; J2060; J2250; J2251; J2405; J2470; J2543; J2598; J3010; J3475; J3480; J3490; J7030; J7060; J7120; J7121; A9270

== ENCOUNTER → 2025-01-13 | Outpatient (CLI) | payer MEDICAID, SELFPAY ==
--- NOTE | 2025-01-13 10:30 | XR_ITS ---
Examination: Retroperitoneal ultrasound, complete Technique: Multiple high resolution grayscale images of the retroperitoneum obtained, including kidneys and bladder. Exam date and time:January 13, 2025 1044 hours INDICATIONS: Elevated renal function tests on laboratory examination 2 months ago, diagnosis chronic kidney disease stage II FINDINGS: Right kidney 11.1 cm cortex 2.2 cm Left kidney 11.5 cm cortex 2.5 cm Moderate renal scar formation Contracted urinary bladder, no bladder mass IMPRESSION: Moderate bilateral renal parenchymal scar formation, no hydronephrosis
== END | disposition home or self-care (01) ==
PROVIDERS: PCP Family Medicine; Referring Provider Internal Medicine Nephrology; Visit Provider Internal Medicine Nephrology
DX: N28.89 Other specified disorders of kidney and ureter (principal)
CPT/HCPCS: 76770

== ENCOUNTER → 2025-02-23 | Outpatient (CLI) | payer MEDICAID, SELFPAY ==
--- NOTE | 2025-02-23 07:45 | XR_ITS ---
Examination: Screening digital mammography, bilateral Computer aided detection 3-D breast Tomosynthesis, bilateral Date and time of exam: February 23 2025, 0731 hours Indication: Screening Technique: Nonmagnified MLO, CC views of the breasts to been obtained, reconstructed from 3-D Tomosynthesis images. R2 computer aided detection program utilized for evaluation of suspicious masses and/or abnormal calcifications. 3-D Tomosynthesis images obtained. Findings: Scattered areas of fibroglandular density 14 mm nodule indistinct margins upper outer right breast mid to anterior depth 13 mm nodule indistinct margins upper outer left breast Impression: BI-RADS Category 0: Incomplete: Need additional imaging evaluation Recommend follow-up spot tomographic views of 14 mm nodule upper outer right breast and 13 mm nodule upper outer left breast as well as bilateral breast sonography to complete the workup.
== END | disposition home or self-care (01) ==
LOC: CDIM 07:21
PROVIDERS: Referring Provider Family Medicine; Visit Provider Family Medicine
DX: Z12.31 Encounter for screening mammogram for malignant neoplasm of breast (principal); N63.21 Unspecified lump in the left breast, upper outer quadrant; N63.11 Unspecified lump in the right breast, upper outer quadrant; R92.8 Other abnormal and inconclusive findings on diagnostic imaging of breast
CPT/HCPCS: 77063; 77067

== ENCOUNTER → 2025-04-08 | Outpatient (CLI) | payer MEDICAID, SELFPAY ==
--- NOTE | 2025-04-08 08:32 | XR_ITS ---
Examination: Diagnostic digital mammography, bilateral Computer aided detection 3-D breast Tomosynthesis, bilateral Date and time of exam: 02 April 2014, 2024, 0844 hours INDICATIONS: Mammogram February 23, 2025 14 mm nodule upper outer right breast and 13 mm nodule upper outer left breast Technique: Nonmagnified MLO, CC views of the breasts to been obtained, reconstructed from 3-D Tomosynthesis images. R2 computer aided detection program utilized for evaluation of suspicious masses and/or abnormal calcifications. 3-D Tomosynthesis images obtained. Findings: Scattered areas of fibroglandular density. Spot compression views do not confirm definite suspicious nodules Impression: BI-RADS Category 0: Incomplete: Need additional imaging evaluation Awaiting bilateral breast sonography to further work-up.
== END | disposition home or self-care (01) ==
LOC: CDIM 08:28
PROVIDERS: Referring Provider Family Medicine; Visit Provider Family Medicine
DX: R92.8 Other abnormal and inconclusive findings on diagnostic imaging of breast (principal)
CPT/HCPCS: 77062; 77066; G0279